=== PATIENT | female | born 1955 | race American Indian/Alaskan Native ===

== ENCOUNTER → 2020-09-23 09:19 | Outpatient (CLI) | payer MEDICARE, MEDICAID, SELFPAY ==
--- NOTE | 2020-09-23 | DI.US.S_ITS ---
PROCEDURE: US ABDOMEN LIMITED INDICATIONS: Elevation of levels of liver transaminase levels TECHNIQUE: Real-time focused scanning was performed of the abdomen, with image documentation. COMPARISON: None. FINDINGS: The liver demonstrates prominent size. The liver demonstrates generalized increased echogenicity. This decreases ultrasound sensitivity for detection of hepatic masses. Pulsatile flow can be seen within the main portal vein, with increased resistance noted within the waveform. No findings of gallstones or sludge are seen. The gallbladder wall is not thickened, measuring 3 mm or less. No specific pericholecystic fluid is seen. The sonographic Ignacio sign is negative. There is no biliary dilatation, the common bile duct measures 3 mm. No significant pancreatic abnormality is seen on these images. A moderate amount of ascites is seen. IMPRESSION: Enlarged, echogenic liver, which is consistent with fatty infiltration or cirrhosis. Moderate ascites. Pulsatile flow can be seen within the main portal vein, with increased resistance noted within the waveform. Dictated by: Cecil Simpson M.D. on 09/23/2020 at 11:05 Approved by: Cecil Simpson M.D. on 09/23/2020 at 11:07
== END ==
PROVIDERS: PCP Family Medicine; Referring Provider Family Medicine; Visit Provider Family Medicine
DX: R74.01 Elevation of levels of liver transaminase levels (principal); R16.0 Hepatomegaly, not elsewhere classified; R18.8 Other ascites
CPT/HCPCS: 76705

== ENCOUNTER 2020-09-25 20:11 | Emergency (ER) | payer MEDICARE, MEDICAID, SELFPAY ==
[2020-09-25] VITALS (10 sets, daily range): BP systolic 115–128; BP diastolic 57–68; PULSE 84–95; RESP 22–28; TEMP 36.9; O2SAT 88–96; BMI 30.8
--- NOTE | 2020-09-25 20:30 | ED.GENADULT ---
HPI - General Adult <Juancho Jeong DO - Last Filed: 09/26/20 17:58> General Chief complaint: Weakness Stated complaint: General Weakness Time Seen by Provider: 09/25/20 20:17 Source: patient Mode of arrival: EMS Limitations: no limitations History of Present Illness HPI narrative: Patient is a 65-year-old female. History of alcoholism. Also history of cirrhosis. Has not seen a GI provider up this point. Has been followed by her primary doctor. Patient fell a couple weeks ago at home. Did not sustain any significant injuries per her report and was not evaluated after the fall but according to the patient and her who is at bedside she has been having increasing weakness since then. Patient states that she still has been drinking alcohol but she quit 2 days ago. She states that she has attempted to quit drinking in the past but this was several years ago. Per report she never had significant withdrawal symptoms except for a small amount of shaking. She reports that she does not feel like she is withdrawing from any alcohol currently. Today she filled more weak than what her baseline was. She was sitting on the toilet and was unable to get up. Her was unable to lift her up and that is why EMS was called. She states he is unsure as to why she is more weak today. She states that she feels like her lower extremities are very unsteady. She feels like both are equally unsteady. She denied any other associated symptoms at that time she was having problems standing. She does state that she feels like she goes through periods of time when she is more weak than others. And felt like what happened her earlier today was just a period of time where her weakness was more pronounced. Related Data Previous Rx's Medication Instructions Recorded sertraline 50 mg tablet 50 mg PO DAILY #30 tab 12/18/19 Allergies Allergy/AdvReac Type Severity Reaction Status Date / Time No Known Drug Allergies Allergy Verified 09/26/20 12:43 Review of Systems <Juancho Jeong DO - Last Filed: 09/26/20 17:58> Constitutional Constitutional: Denies fatigue, Denies fever(s), Denies frequent falls, Denies headache(s) and Reports weakness Eyes Eyes: Denies change in vision ENT Ears, Nose, Mouth, and Throat: Denies vertigo, Denies dizziness, Denies headache(s), Reports disequilibrium and Denies sore throat Cardiovascular Cardiovascular: Denies chest pain and Denies dyspnea Respiratory Respiratory: Denies cough and Denies dyspnea Gastrointestinal Gastrointestinal: Denies abdominal pain, Denies nausea and Denies vomiting Genitourinary Genitourinary: Denies dysuria Genitourinary: Denies dysuria Musculoskeletal Musculoskeletal: Denies arthralgias, Reports muscle weakness, Denies myalgias, Denies stiffness and Denies tingling Comments: She does report neuropathy but does not think that that is worse today than her baseline Integumentary/Breasts Skin/Breast: Denies lesions and Denies rash Neurologic Neurologic: Denies abnormal movements, Denies abnormal speech, Denies behavioral changes, Denies confusion, Denies vertigo, Denies dizziness, Denies frequent falls, Denies headache(s), Denies tingling, Reports disequilibrium and Reports weakness Psychiatric Psychiatric: Denies behavioral changes and Denies confusion Endocrine Endocrine: Denies fatigue Hematologic/Lymphatic Hematologic/Lymphatic: Denies easy bleeding and Denies easy bruising Allergic/Immunologic Allergic/Immunologic: Denies urticaria Patient History <Juancho Jeong DO - Last Filed: 09/26/20 17:58> Medical History (Updated 09/26/20 @ 17:47 by Fish Jenkins MD) Alcoholism Allergies Bilateral leg weakness Cirrhosis Depression (~1985) History of chicken pox (~1958) Restless leg syndrome Transaminitis Vitiligo (~2017) Surgical History (Updated 09/26/20 @ 17:39 by Fish Jenkins MD) No significant past surgical history Social History marital status: household members: spouse and children pets and animals: No education level: high school occupational status: employed current occupational exposures/hazards: Yes ([employer]) travel history: other leisure activities: reading and other other: Walking seatbelt use: always working smoke detector in home: Yes fire extinguisher in home: Yes carbon monox detector in home: Yes firearms in home: No do you feel safe at home: Yes Smoking Status: Former smoker alcohol intake: current during the past year weight has: decreased > 10 lbs well-balanced diet: daily or most days daily servings fruits/ve-4 caffeine: Yes (Rare) eating out: 1-3 times/week Type(s) of exercise: walking and bicycling frequency: daily duration: 15-30 minutes/day Smoking Status: Former smoker Exam <DO Sherie Rose Last Filed: 09/26/20 17:58> Initial Vital Signs Initial Vital Signs: Vital Signs Blood Pressure 120/57 L 09/25/20 20:15 Const General: cooperative, healthy appearing, comfortable and well developed Limitations: mental status not altered HENMT Head: normal to inspection and normocephalic Ears: hearing grossly normal bilaterally Face and sinus: normal facial exam Eyes Pupils: PERRL Resp Effort & Inspection: normal respiratory effort Auscultation: clear to auscultation bilaterally Cardio Rate: regular rate Rhythm: regular rhythm Pulses: radial pulses present and dorsalis pedis present GI Inspection: distended Palpation: soft, No firm, No tender and ascites Skin Lesions: no lesions Rashes: no rashes Neuro General: patient alert, patient awake and patient oriented x3 Cranial Nerves: CN's II-XI intact bilaterally Cognition: normal cognition Speech: speech normal Gait: gait abnormal Motor: other (5/5 strength bilateral upper extremities, 4/5 strength bilateral lower extr) Sensory Exam: no sensory deficits noted Extrem General: normal to inspection, capillary refill normal and edema (At baseline for her per her report) Psych Appearance: grossly normal and well kempt <Fish Jenkins MD - Last Filed: 09/26/20 11:15> Initial Vital Signs Initial Vital Signs: Vital Signs Blood Pressure 120/57 L 09/25/20 20:15 Procedures <Juancho Jeong DO - Last Filed: 09/26/20 17:58> Paracentesis Time Out Performed: Yes Local Anesthetic: lidocaine 1% Amount of anesthesia used (mL): 5 Fluid: clear Post Procedure Exam: awake, alert, normal BP and normal HR Patient Tolerated Procedure: Well and No complications Complications: none Scores <DO Sherie Rose Last Filed: 09/26/20 17:58> GCS [place] coma scale eye opening: Spontaneous Zev coma scale verbal response: Orientated Zev coma scale motor response: Obey commands Zev coma scale total score: 15 Course <DO Sherie Rose Last Filed: 09/26/20 17:58> Orders Ordered: ED Orders 09/25/20 22:35 COVID19 Stat 09/25/20 23:25 Body Fluid Culture Stat Cell Count w Diff Body Fluid Stat 09/26/20 00:49 Consult to [facility] [place] F[place] Stat Consult to Physical Therapy Evaluate & Treat Vital Signs Vital signs: Vital Signs - 8 hr 09/26/20 10:00 09/26/20 10:30 09/26/20 11:05 Pulse Rate 76 82 96 H Respiratory Rate 20 22 Blood Pressure 113/55 L 119/61 118/65 Pulse Oximetry 96 97 93 09/26/20 11:12 Pulse Rate 97 H Respiratory Rate 12 Blood Pressure 118/65 Pulse Oximetry 95 <Fish Jenkins MD - Last Filed: 09/26/20 11:15> Course Course Narrative: 10:45 am. 09/26/20. The patient was evaluated in the prior ER shift by Dr. Jeong. I reviewed his evaluation, we have discussed the case. I assumed care at change of shift. The intent was to have the patient visited by a social media intern about noon today in the ER and provide assistance with disposition and ongoing care. The patient grew tired of waiting, she insisted on going home. I advised her to seek assistance with home health care through her own physician. Anthony Jenkins MD Orders Ordered: ED Orders 09/25/20 22:35 COVID19 Stat 09/25/20 23:25 Body Fluid Culture Stat Cell Count w Diff Body Fluid Stat 09/26/20 00:49 Consult to [facility] [place] Filler Stat Consult to Physical Therapy Evaluate & Treat Vital Signs Vital signs: Vital Signs - 8 hr 09/26/20 10:00 09/26/20 10:30 09/26/20 11:05 Pulse Rate 76 82 96 H Respiratory Rate 20 22 Blood Pressure 113/55 L 119/61 118/65 Pulse Oximetry 96 97 93 09/26/20 11:12 Pulse Rate 97 H Respiratory Rate 12 Blood Pressure 118/65 Pulse Oximetry 95 Medical Decision Making <Juancho Jeong DO - Last Filed: 09/26/20 17:58> Lab Data Lab results reviewed: Yes I reviewed the patient's lab results. Result diagrams: 09/25/20 20:13 09/25/20 20:13 Labs: Lab Results 09/25/20 09/25/20 09/25/20 Range/Units 20:13 20:13 20:13 WBC 12.3 H (4.5-11.0) X10^3/uL RBC 3.50 L (4.0-5.2) X10^6/uL Hgb 12.2 (12.0-16.0) g/dL Hct 36.1 (36-46) % MCV 103.2 H (80-100) fL MCH 34.9 H (26-34) PG MCHC 33.8 (30-36) % RDW 15.4 H (11.6-14.8) % Plt Count 185 (150-400) X10^3/uL Neut % (Auto) 69.7 (50-75) % Lymph % (Auto) 16.6 L (25-40) % [place] % (Auto) 12.4 (3-14) % Eos % (Auto) 0.6 L (2-4) % Baso % (Auto) 0.7 (0-2) % Neut # (Auto) 8600 H (5293-4171) /uL Lymph # (Auto) 2000 (3432-5398) /uL [place] # (Auto) 1500 H (0-900) /uL Eos # (Auto) 100 (0-450) /uL Baso # (Auto) 100 (0-100) /uL PT 16.1 H (10.1-12.7) SECONDS INR 1.4 H (0.9-1.3) APTT 34 (26.4-36.2) SECONDS Sodium 128 L (137-145) mmol/L Potassium 4.1 (3.4-5.1) mmol/L Chloride 93 L (98-107) mmol/L Carbon Dioxide 27 (22-32) mmol/L BUN 34 H (7-17) mg/dL Creatinine 1.87 H (0.52-1.04) mg/dL Estimated GFR 26.9 L (>60) mL/min BUN/Creatinine Ratio 18.2 (6-22) Glucose 117 H (80-110) mg/dL Lactate (0.7-2.1) mmol/L Calcium 10.0 (8.4-10.2) mg/dL Total Bilirubin (0.2-1.3) mg/dL Conjugated Bilirubin (0.0-0.3) md/dL Unconjugated Bilirubin (0.0-1.1) mg/dL AST (14-36) IU/L ALT (<35) IU/L Alkaline Phosphatase (38-126) U/L Ammonia (9-30) umol/L NT-Pro-B Natriuret Pep (<125) pg/mL Total Protein (6.3-8.2) g/dL Albumin (3.5-5.0) g/dL Globulin (1.7-4.1) g/dL Albumin/Globulin Ratio (1.0-2.8) Lipase (23-300) U/L TSH (0.47-4.68) uIU/mL Urine RBC (0-5/HPF) Urine WBC (0-5/HPF) Ur Squamous Epith Cells (0-5/HPF) Calcium Oxalate Crystal Urine Bacteria (None) Hyaline Casts (None) Ur Culture Indicated? Fluid Color Fluid Appearance Fluid RBC /uL Fld Tot Nucleated Cell /uL Fluid Polynuclear WBCs % Fluid Mononuclear WBCs % Fluid Eosinophils % Fluid Other Cells % Body Fluid Clot Ethyl Alcohol < 10 ( - 10) mg/dL COVID-19 PCR (Negative) 09/25/20 09/25/20 09/25/20 Range/Units 20:13 20:13 20:53 WBC (4.5-11.0) X10^3/uL RBC (4.0-5.2) X10^6/uL Hgb (12.0-16.0) g/dL Hct (36-46) % MCV (80-100) fL MCH (26-34) PG MCHC (30-36) % RDW (11.6-14.8) % Plt Count (150-400) X10^3/uL Neut % (Auto) (50-75) % Lymph % (Auto) (25-40) % [place] % (Auto) (3-14) % Eos % (Auto) (2-4) % Baso % (Auto) (0-2) % Neut # (Auto) (8360-1875) /uL Lymph # (Auto) (3486-6613) /uL [place] # (Auto) (0-900) /uL Eos # (Auto) (0-450) /uL Baso # (Auto) (0-100) /uL PT (10.1-12.7) SECONDS INR (0.9-1.3) APTT (26.4-36.2) SECONDS Sodium (137-145) mmol/L Potassium (3.4-5.1) mmol/L Chloride (98-107) mmol/L Carbon Dioxide (22-32) mmol/L BUN (7-17) mg/dL Creatinine (0.52-1.04) mg/dL Estimated GFR (>60) mL/min BUN/Creatinine Ratio (6-22) Glucose (80-110) mg/dL Lactate (0.7-2.1) mmol/L Calcium (8.4-10.2) mg/dL Total Bilirubin 5.8 H (0.2-1.3) mg/dL Conjugated Bilirubin 1.6 H (0.0-0.3) md/dL Unconjugated Bilirubin 1.7 H (0.0-1.1) mg/dL AST 252 H (14-36) IU/L ALT 106 H (<35) IU/L Alkaline Phosphatase 393 H (38-126) U/L Ammonia 22 (9-30) umol/L NT-Pro-B Natriuret Pep 1380 H (<125) pg/mL Total Protein 7.7 (6.3-8.2) g/dL Albumin 3.6 (3.5-5.0) g/dL Globulin 4.1 (1.7-4.1) g/dL Albumin/Globulin Ratio 0.9 L (1.0-2.8) Lipase 190 (23-300) U/L TSH 8.87 H (0.47-4.68) uIU/mL Urine RBC (0-5/HPF) Urine WBC (0-5/HPF) Ur Squamous Epith Cells (0-5/HPF) Calcium Oxalate Crystal Urine Bacteria (None) Hyaline Casts (None) Ur Culture Indicated? Fluid Color Fluid Appearance Fluid RBC /uL Fld Tot Nucleated Cell /uL Fluid Polynuclear WBCs % Fluid Mononuclear WBCs % Fluid Eosinophils % Fluid Other Cells % Body Fluid Clot Ethyl Alcohol ( - 10) mg/dL COVID-19 PCR (Negative) 09/25/20 09/25/20 09/25/20 Range/Units 20:53 21:30 22:35 WBC (4.5-11.0) X10^3/uL RBC (4.0-5.2) X10^6/uL Hgb (12.0-16.0) g/dL Hct (36-46) % MCV (80-100) fL MCH (26-34) PG MCHC (30-36) % RDW (11.6-14.8) % Plt Count (150-400) X10^3/uL Neut % (Auto) (50-75) % Lymph % (Auto) (25-40) % [place] % (Auto) (3-14) % Eos % (Auto) (2-4) % Baso % (Auto) (0-2) % Neut # (Auto) (1756-7513) /uL Lymph # (Auto) (6741-8734) /uL [place] # (Auto) (0-900) /uL Eos # (Auto) (0-450) /uL Baso # (Auto) (0-100) /uL PT (10.1-12.7) SECONDS INR (0.9-1.3) APTT (26.4-36.2) SECONDS Sodium (137-145) mmol/L Potassium (3.4-5.1) mmol/L Chloride (98-107) mmol/L Carbon Dioxide (22-32) mmol/L BUN (7-17) mg/dL Creatinine (0.52-1.04) mg/dL Estimated GFR (>60) mL/min BUN/Creatinine Ratio (6-22) Glucose (80-110) mg/dL Lactate 2.2 H (0.7-2.1) mmol/L Calcium (8.4-10.2) mg/dL Total Bilirubin (0.2-1.3) mg/dL Conjugated Bilirubin (0.0-0.3) md/dL Unconjugated Bilirubin (0.0-1.1) mg/dL AST (14-36) IU/L ALT (<35) IU/L Alkaline Phosphatase (38-126) U/L Ammonia (9-30) umol/L NT-Pro-B Natriuret Pep (<125) pg/mL Total Protein (6.3-8.2) g/dL Albumin (3.5-5.0) g/dL Globulin (1.7-4.1) g/dL Albumin/Globulin Ratio (1.0-2.8) Lipase (23-300) U/L TSH (0.47-4.68) uIU/mL Urine RBC None seen (0-5/HPF) Urine WBC None seen (0-5/HPF) Ur Squamous Epith Cells 5-10 /hpf H (0-5/HPF) Calcium Oxalate Crystal Few H Urine Bacteria Few (2-10) H (None) Hyaline Casts 5-10/lpf (None) Ur Culture Indicated? Cult not indicated Fluid Color Fluid Appearance Fluid RBC /uL Fld Tot Nucleated Cell /uL Fluid Polynuclear WBCs % Fluid Mononuclear WBCs % Fluid Eosinophils % Fluid Other Cells % Body Fluid Clot Ethyl Alcohol ( - 10) mg/dL COVID-19 PCR Negative (Negative) 09/25/20 09/25/20 Range/Units 23:25 23:30 WBC (4.5-11.0) X10^3/uL RBC (4.0-5.2) X10^6/uL Hgb (12.0-16.0) g/dL Hct (36-46) % MCV (80-100) fL MCH (26-34) PG MCHC (30-36) % RDW (11.6-14.8) % Plt Count (150-400) X10^3/uL Neut % (Auto) (50-75) % Lymph % (Auto) (25-40) % [place] % (Auto) (3-14) % Eos % (Auto) (2-4) % Baso % (Auto) (0-2) % Neut # (Auto) (8460-9260) /uL Lymph # (Auto) (1531-1081) /uL [place] # (Auto) (0-900) /uL Eos # (Auto) (0-450) /uL Baso # (Auto) (0-100) /uL PT (10.1-12.7) SECONDS INR (0.9-1.3) APTT (26.4-36.2) SECONDS Sodium (137-145) mmol/L Potassium (3.4-5.1) mmol/L Chloride (98-107) mmol/L Carbon Dioxide (22-32) mmol/L BUN (7-17) mg/dL Creatinine (0.52-1.04) mg/dL Estimated GFR (>60) mL/min BUN/Creatinine Ratio (6-22) Glucose (80-110) mg/dL Lactate 1.3 (0.7-2.1) mmol/L Calcium (8.4-10.2) mg/dL Total Bilirubin (0.2-1.3) mg/dL Conjugated Bilirubin (0.0-0.3) md/dL Unconjugated Bilirubin (0.0-1.1) mg/dL AST (14-36) IU/L ALT (<35) IU/L Alkaline Phosphatase (38-126) U/L Ammonia (9-30) umol/L NT-Pro-B Natriuret Pep (<125) pg/mL Total Protein (6.3-8.2) g/dL Albumin (3.5-5.0) g/dL Globulin (1.7-4.1) g/dL Albumin/Globulin Ratio (1.0-2.8) Lipase (23-300) U/L TSH (0.47-4.68) uIU/mL Urine RBC (0-5/HPF) Urine WBC (0-5/HPF) Ur Squamous Epith Cells (0-5/HPF) Calcium Oxalate Crystal Urine Bacteria (None) Hyaline Casts (None) Ur Culture Indicated? Fluid Color Yellow Fluid Appearance Clear Fluid RBC 217 /uL Fld Tot Nucleated Cell 73 /uL Fluid Polynuclear WBCs 3 % Fluid Mononuclear WBCs 15 % Fluid Eosinophils 0 % Fluid Other Cells 82 % Body Fluid Clot No clots present Ethyl Alcohol ( - 10) mg/dL COVID-19 PCR (Negative) Urine Dip Bedside Urine Glucose Negative Bedside Urine Bilirubin - Negative Bedside Urine Ketone - Negative Urine Specific [place] 1.030 Bedside Urine Occult Blood - Negative Bedside Urine pH 6.0 Bedside Urine Protein - Negative Bedside Urine Urobilinogen - Negative Bedside Urine Nitrite - Negative Bedside Urine Leukocytes - Negative Esterase Point of care testing: Urine Dip Bedside Urine Glucose Negative Bedside Urine Bilirubin - Negative Bedside Urine Ketone - Negative Urine Specific [place] 1.030 Bedside Urine Occult Blood - Negative Bedside Urine pH 6.0 Bedside Urine Protein - Negative Bedside Urine Urobilinogen - Negative Bedside Urine Nitrite - Negative Bedside Urine Leukocytes - Negative Esterase Imaging Data CT scan - head: Radiologist's Impression: [address] [id number] Scan ReportSigned Patient: Gwen Tyson AMR#: [id number]: 4Acct:[id number]/Sex: 65 / FDate of Service: 09/25/20Loc: EDAccession Number: [id number] Procedure: CT head/brain wo con Ordering Provider: Juancho Jeong D.O. PROCEDURE: CT HEAD/BRAIN WO CON INDICATIONS: weakness after fall TECHNIQUE: Noncontrast 4.5 mm thick angled axial sections acquired from the foramen magnum to the vertex, with coronal and sagittal reformats. For radiation dose reduction, the following was used: automated exposure control, adjustment of mA and/or kV according to patient size. COMPARISON: None. FINDINGS: Image quality: Excellent. CSF spaces: Basal cisterns are patent. No extra-axial fluid collections. The ventricles are symmetric in size and shape. Brain: No intracranial bleeds. There is a likely extra-axial mass inferior to the bilateral frontal lobes at midline (series 2/image 14, series 4/image 15, and series 5/image 22). There is no sulcal effacement or associated parenchymal edema. There is moderate cerebral volume loss for age, with resultant ventricular and sulcal prominence. There are periventricular and deep white matter chronic small vessel ischemic changes. There is intracranial internal carotid artery atherosclerosis. Skull and face: Calvarium and visualized facial bones appear intact, without suspicious lesions. Sinuses: Visualized sinuses and mastoids are clear. IMPRESSION: 1. No acute intracranial findings. 2. Probable extra-axial mass inferior to the central frontal lobes as described above. The lack of associated sulcal effacement or edema suggests this is an indolent finding and may represent a meningioma. MRI of the brain with and without contrast is recommended to further characterize this finding. These findings were discussed with Dr. Jeong at 9:17 p.m. On September 25, 2020. Dictated by: Jyoti Bronson M.D. on 09/25/2020 at 21:12 Approved by: Jyoti Bronson M.D. on 09/25/2020 at 21:18 Chest x-ray: Radiologist's Impression: No acute process in the chest ECG Data Attestation: I personally reviewed and interpreted this ECG as follows: Prior ECG tracings: not available for review Interpretation: Normal sinus rhythm Ventricular rate 84 Normal axis Normal QRS Normal QTC No ST T wave changes MDM Narrative Medical decision making narrative: Patient was alert and oriented x3. GCS of 15. Patient reports lower extremity weakness however does appear to be equal bilateral. She has no other localizing signs of any acute neurologic process. I have low suspicion for CVA or TIA. Her head CT was also unremarkable. She does have a leukocytosis however her physical exam and labs are not consistent with pneumonia, cellulitis, urinary tract infection, SBP, other intra-abdominal issues such as appendicitis. Initially her lactate was elevated but this improved with fluids. Blood cultures were obtained. Her COVID testing was negative. I do not have any specific indication for a infection except for the leukocytosis. Her elevations in these labs could very well be related to her liver issues. She does have an elevated bili. Her LFTs are also elevated. The paracentesis was performed to obtain fluid for analysis for potential SBP. We were able to remove 2 L of fluid during this process. Patient tolerated this procedure very well. I suspect that her elevation in LFTs are not new for her. She did have the outpatient ultrasound done within the past week that showed findings consistent with cirrhosis had no specific gallbladder pathology. We attempted multiple times to get the patient to stand at bedside but she was unable to do so secondary to weakness. Patient clinically is not withdrawing from alcohol. She did not think that she is having any withdrawal symptoms. Patient's states that he he cannot take care of her at home. He has Parkinson's disease and when she becomes weak and cannot stand which seems to be happening more often over the past several days especially today he is unable to help her. Unfortunately all of her issues especially with her liver seem to be chronic. The neuropathy that she states she has in her lower extremities is also chronic. I do not have a specific reason at this point to admit her to the hospital and I feel that she is unsafe to be discharged home so patient will be boarded in the emergency department until she can be evaluated by physical therapy and social work in the morning. Care turned over to day provider changed shift to follow up with this and disposition. I did discuss the findings of the head CT with the patient and informed her she needed to contact her primary provider for further evaluation to include an MRI. She expressed understanding. <Fish Jenkins MD - Last Filed: 09/26/20 11:15> Lab Data Labs: Lab Results 09/25/20 09/25/20 09/25/20 Range/Units 20:13 20:13 20:13 WBC 12.3 H (4.5-11.0) X10^3/uL RBC 3.50 L (4.0-5.2) X10^6/uL Hgb 12.2 (12.0-16.0) g/dL Hct 36.1 (36-46) % MCV 103.2 H (80-100) fL MCH 34.9 H (26-34) PG MCHC 33.8 (30-36) % RDW 15.4 H (11.6-14.8) % Plt Count 185 (150-400) X10^3/uL Neut % (Auto) 69.7 (50-75) % Lymph % (Auto) 16.6 L (25-40) % [place] % (Auto) 12.4 (3-14) % Eos % (Auto) 0.6 L (2-4) % Baso % (Auto) 0.7 (0-2) % Neut # (Auto) 8600 H (7274-8861) /uL Lymph # (Auto) 2000 (9913-7003) /uL [place] # (Auto) 1500 H (0-900) /uL Eos # (Auto) 100 (0-450) /uL Baso # (Auto) 100 (0-100) /uL PT 16.1 H (10.1-12.7) SECONDS INR 1.4 H (0.9-1.3) APTT 34 (26.4-36.2) SECONDS Sodium 128 L (137-145) mmol/L Potassium 4.1 (3.4-5.1) mmol/L Chloride 93 L (98-107) mmol/L Carbon Dioxide 27 (22-32) mmol/L BUN 34 H (7-17) mg/dL Creatinine 1.87 H (0.52-1.04) mg/dL Estimated GFR 26.9 L (>60) mL/min BUN/Creatinine Ratio 18.2 (6-22) Glucose 117 H (80-110) mg/dL Lactate (0.7-2.1) mmol/L Calcium 10.0 (8.4-10.2) mg/dL Total Bilirubin (0.2-1.3) mg/dL Conjugated Bilirubin (0.0-0.3) md/dL Unconjugated Bilirubin (0.0-1.1) mg/dL AST (14-36) IU/L ALT (<35) IU/L Alkaline Phosphatase (38-126) U/L Ammonia (9-30) umol/L NT-Pro-B Natriuret Pep (<125) pg/mL Total Protein (6.3-8.2) g/dL Albumin (3.5-5.0) g/dL Globulin (1.7-4.1) g/dL Albumin/Globulin Ratio (1.0-2.8) Lipase (23-300) U/L TSH (0.47-4.68) uIU/mL Urine RBC (0-5/HPF) Urine WBC (0-5/HPF) Ur Squamous Epith Cells (0-5/HPF) Calcium Oxalate Crystal Urine Bacteria (None) Hyaline Casts (None) Ur Culture Indicated? Fluid Color Fluid Appearance Fluid RBC /uL Fld Tot Nucleated Cell /uL Fluid Polynuclear WBCs % Fluid Mononuclear WBCs % Fluid Eosinophils % Fluid Other Cells % Body Fluid Clot Ethyl Alcohol < 10 ( - 10) mg/dL COVID-19 PCR (Negative) 09/25/20 09/25/20 09/25/20 Range/Units 20:13 20:13 20:53 WBC (4.5-11.0) X10^3/uL RBC (4.0-5.2) X10^6/uL Hgb (12.0-16.0) g/dL Hct (36-46) % MCV (80-100) fL MCH (26-34) PG MCHC (30-36) % RDW (11.6-14.8) % Plt Count (150-400) X10^3/uL Neut % (Auto) (50-75) % Lymph % (Auto) (25-40) % [place] % (Auto) (3-14) % Eos % (Auto) (2-4) % Baso % (Auto) (0-2) % Neut # (Auto) (0764-4849) /uL Lymph # (Auto) (3547-5983) /uL [place] # (Auto) (0-900) /uL Eos # (Auto) (0-450) /uL Baso # (Auto) (0-100) /uL PT (10.1-12.7) SECONDS INR (0.9-1.3) APTT (26.4-36.2) SECONDS Sodium (137-145) mmol/L Potassium (3.4-5.1) mmol/L Chloride (98-107) mmol/L Carbon Dioxide (22-32) mmol/L BUN (7-17) mg/dL Creatinine (0.52-1.04) mg/dL Estimated GFR (>60) mL/min BUN/Creatinine Ratio (6-22) Glucose (80-110) mg/dL Lactate (0.7-2.1) mmol/L Calcium (8.4-10.2) mg/dL Total Bilirubin 5.8 H (0.2-1.3) mg/dL Conjugated Bilirubin 1.6 H (0.0-0.3) md/dL Unconjugated Bilirubin 1.7 H (0.0-1.1) mg/dL AST 252 H (14-36) IU/L ALT 106 H (<35) IU/L Alkaline Phosphatase 393 H (38-126) U/L Ammonia 22 (9-30) umol/L NT-Pro-B Natriuret Pep 1380 H (<125) pg/mL Total Protein 7.7 (6.3-8.2) g/dL Albumin 3.6 (3.5-5.0) g/dL Globulin 4.1 (1.7-4.1) g/dL Albumin/Globulin Ratio 0.9 L (1.0-2.8) Lipase 190 (23-300) U/L TSH 8.87 H (0.47-4.68) uIU/mL Urine RBC (0-5/HPF) Urine WBC (0-5/HPF) Ur Squamous Epith Cells (0-5/HPF) Calcium Oxalate Crystal Urine Bacteria (None) Hyaline Casts (None) Ur Culture Indicated? Fluid Color Fluid Appearance Fluid RBC /uL Fld Tot Nucleated Cell /uL Fluid Polynuclear WBCs % Fluid Mononuclear WBCs % Fluid Eosinophils % Fluid Other Cells % Body Fluid Clot Ethyl Alcohol ( - 10) mg/dL COVID-19 PCR (Negative) 09/25/20 09/25/20 09/25/20 Range/Units 20:53 21:30 22:35 WBC (4.5-11.0) X10^3/uL RBC (4.0-5.2) X10^6/uL Hgb (12.0-16.0) g/dL Hct (36-46) % MCV (80-100) fL MCH (26-34) PG MCHC (30-36) % RDW (11.6-14.8) % Plt Count (150-400) X10^3/uL Neut % (Auto) (50-75) % Lymph % (Auto) (25-40) % [place] % (Auto) (3-14) % Eos % (Auto) (2-4) % Baso % (Auto) (0-2) % Neut # (Auto) (2070-2931) /uL Lymph # (Auto) (5949-7640) /uL [place] # (Auto) (0-900) /uL Eos # (Auto) (0-450) /uL Baso # (Auto) (0-100) /uL PT (10.1-12.7) SECONDS INR (0.9-1.3) APTT (26.4-36.2) SECONDS Sodium (137-145) mmol/L Potassium (3.4-5.1) mmol/L Chloride (98-107) mmol/L Carbon Dioxide (22-32) mmol/L BUN (7-17) mg/dL Creatinine (0.52-1.04) mg/dL Estimated GFR (>60) mL/min BUN/Creatinine Ratio (6-22) Glucose (80-110) mg/dL Lactate 2.2 H (0.7-2.1) mmol/L Calcium (8.4-10.2) mg/dL Total Bilirubin (0.2-1.3) mg/dL Conjugated Bilirubin (0.0-0.3) md/dL Unconjugated Bilirubin (0.0-1.1) mg/dL AST (14-36) IU/L ALT (<35) IU/L Alkaline Phosphatase (38-126) U/L Ammonia (9-30) umol/L NT-Pro-B Natriuret Pep (<125) pg/mL Total Protein (6.3-8.2) g/dL Albumin (3.5-5.0) g/dL Globulin (1.7-4.1) g/dL Albumin/Globulin Ratio (1.0-2.8) Lipase (23-300) U/L TSH (0.47-4.68) uIU/mL Urine RBC None seen (0-5/HPF) Urine WBC None seen (0-5/HPF) Ur Squamous Epith Cells 5-10 /hpf H (0-5/HPF) Calcium Oxalate Crystal Few H Urine Bacteria Few (2-10) H (None) Hyaline Casts 5-10/lpf (None) Ur Culture Indicated? Cult not indicated Fluid Color Fluid Appearance Fluid RBC /uL Fld Tot Nucleated Cell /uL Fluid Polynuclear WBCs % Fluid Mononuclear WBCs % Fluid Eosinophils % Fluid Other Cells % Body Fluid Clot Ethyl Alcohol ( - 10) mg/dL COVID-19 PCR Negative (Negative) 09/25/20 09/25/20 Range/Units 23:25 23:30 WBC (4.5-11.0) X10^3/uL RBC (4.0-5.2) X10^6/uL Hgb (12.0-16.0) g/dL Hct (36-46) % MCV (80-100) fL MCH (26-34) PG MCHC (30-36) % RDW (11.6-14.8) % Plt Count (150-400) X10^3/uL Neut % (Auto) (50-75) % Lymph % (Auto) (25-40) % [place] % (Auto) (3-14) % Eos % (Auto) (2-4) % Baso % (Auto) (0-2) % Neut # (Auto) (8030-7990) /uL Lymph # (Auto) (3771-0408) /uL [place] # (Auto) (0-900) /uL Eos # (Auto) (0-450) /uL Baso # (Auto) (0-100) /uL PT (10.1-12.7) SECONDS INR (0.9-1.3) APTT (26.4-36.2) SECONDS Sodium (137-145) mmol/L Potassium (3.4-5.1) mmol/L Chloride (98-107) mmol/L Carbon Dioxide (22-32) mmol/L BUN (7-17) mg/dL Creatinine (0.52-1.04) mg/dL Estimated GFR (>60) mL/min BUN/Creatinine Ratio (6-22) Glucose (80-110) mg/dL Lactate 1.3 (0.7-2.1) mmol/L Calcium (8.4-10.2) mg/dL Total Bilirubin (0.2-1.3) mg/dL Conjugated Bilirubin (0.0-0.3) md/dL Unconjugated Bilirubin (0.0-1.1) mg/dL AST (14-36) IU/L ALT (<35) IU/L Alkaline Phosphatase (38-126) U/L Ammonia (9-30) umol/L NT-Pro-B Natriuret Pep (<125) pg/mL Total Protein (6.3-8.2) g/dL Albumin (3.5-5.0) g/dL Globulin (1.7-4.1) g/dL Albumin/Globulin Ratio (1.0-2.8) Lipase (23-300) U/L TSH (0.47-4.68) uIU/mL Urine RBC (0-5/HPF) Urine WBC (0-5/HPF) Ur Squamous Epith Cells (0-5/HPF) Calcium Oxalate Crystal Urine Bacteria (None) Hyaline Casts (None) Ur Culture Indicated? Fluid Color Yellow Fluid Appearance Clear Fluid RBC 217 /uL Fld Tot Nucleated Cell 73 /uL Fluid Polynuclear WBCs 3 % Fluid Mononuclear WBCs 15 % Fluid Eosinophils 0 % Fluid Other Cells 82 % Body Fluid Clot No clots present Ethyl Alcohol ( - 10) mg/dL COVID-19 PCR (Negative) Urine Dip Bedside Urine Glucose Negative Bedside Urine Bilirubin - Negative Bedside Urine Ketone - Negative Urine Specific [place] 1.030 Bedside Urine Occult Blood - Negative Bedside Urine pH 6.0 Bedside Urine Protein - Negative Bedside Urine Urobilinogen - Negative Bedside Urine Nitrite - Negative Bedside Urine Leukocytes - Negative Esterase Point of care testing: Urine Dip Bedside Urine Glucose Negative Bedside Urine Bilirubin - Negative Bedside Urine Ketone - Negative Urine Specific [place] 1.030 Bedside Urine Occult Blood - Negative Bedside Urine pH 6.0 Bedside Urine Protein - Negative Bedside Urine Urobilinogen - Negative Bedside Urine Nitrite - Negative Bedside Urine Leukocytes - Negative Esterase Discharge Plan Departure Patient Disposition: Home Clinical Impression: Cirrhosis, Hyperbilirubinemia, Transaminitis, Leukocytosis, Bilateral leg weakness, Meningioma Instructions: DI for Cirrhosis Activity Restrictions/Additional Instructions: You to follow-up with her doctor, you need to seek home health care. Return to the ER as needed. Prescriptions: No Action sertraline 50 mg tablet 50 mg PO DAILY Qty: 30 RF: 0 Referrals: Bib Toro MD [Primary Care Provider] -
--- NOTE | 2020-09-25 20:39 | DI.CT.S_ITS ---
PROCEDURE: CT HEAD/BRAIN WO CON INDICATIONS: weakness after fall TECHNIQUE: Noncontrast 4.5 mm thick angled axial sections acquired from the foramen magnum to the vertex, with coronal and sagittal reformats. For radiation dose reduction, the following was used: automated exposure control, adjustment of mA and/or kV according to patient size. COMPARISON: None. FINDINGS: Image quality: Excellent. CSF spaces: Basal cisterns are patent. No extra-axial fluid collections. The ventricles are symmetric in size and shape. Brain: No intracranial bleeds. There is a likely extra-axial mass inferior to the bilateral frontal lobes at midline (series 2/image 14, series 4/image 15, and series 5/image 22). There is no sulcal effacement or associated parenchymal edema. There is moderate cerebral volume loss for age, with resultant ventricular and sulcal prominence. There are periventricular and deep white matter chronic small vessel ischemic changes. There is intracranial internal carotid artery atherosclerosis. Skull and face: Calvarium and visualized facial bones appear intact, without suspicious lesions. Sinuses: Visualized sinuses and mastoids are clear. IMPRESSION: 1. No acute intracranial findings. 2. Probable extra-axial mass inferior to the central frontal lobes as described above. The lack of associated sulcal effacement or edema suggests this is an indolent finding and may represent a meningioma. MRI of the brain with and without contrast is recommended to further characterize this finding. These findings were discussed with Dr. Jeong at 9:17 p.m. On September 25, 2020. Dictated by: Jyoti Bronson M.D. on 09/25/2020 at 21:12 Approved by: Jyoti Bronson M.D. on 09/25/2020 at 21:18
[2020-09-25 21:01] LABS: INR 1.4 (0.9-1.3); Prothrombin Time 16.1 SECONDS (10.1-12.7)
[2020-09-25 21:04] LABS: PTT Partial Thromboplastin Tim 34 SECONDS (26.4-36.2)
[2020-09-25 21:08] LABS: Alanine Aminotransferase 106 IU/L (<35); Albumin 3.6 g/dL (3.5-5.0); Albumin Globulin Ratio 0.9 (1.0-2.8); Alkaline Phosphatase 393 U/L (38-126); Aspartate Aminotransferase 252 IU/L (14-36); Bilirubin Conjugated 1.6 md/dL (0.0-0.3); Bilirubin Total 5.8 mg/dL (0.2-1.3); Bilirubin Unconjugated 1.7 mg/dL (0.0-1.1); Globulin 4.1 g/dL (1.7-4.1); Lipase 190 U/L (23-300); Total Protein 7.7 g/dL (6.3-8.2)
[2020-09-25 21:09] LABS: BUN Creatinine Ratio 18.2 (6-22); Blood Urea Nitrogen 34 mg/dL (7-17); Carbon Dioxide 27 mmol/L (22-32); Chloride 93 mmol/L (98-107); Estimated Glomerular Filt Rate 26.9 mL/min (>60); Ethanol (ETOH) < 10 mg/dL; Glucose 117 mg/dL (80-110); Potassium 4.1 mmol/L (3.4-5.1); Sodium 128 mmol/L (137-145)
[2020-09-25 21:10] LABS: HEMOLYSIS 139 (0-50)
[2020-09-25 21:11] LABS: HEMOLYSIS 139 (0-50)
[2020-09-25 21:13] LABS: Ammonia (NH3) 22 umol/L (9-30); Lactate (Lactic Acid) 2.2 mmol/L (0.7-2.1)
[2020-09-25 21:15] LABS: Add Manual Diff / Slide Review NO; Basophils Absolute Auto 100 /uL (0-100); Basophils Percent Auto 0.7 % (0-2); Eosinophils Absolute Auto 100 /uL (0-450); Eosinophils Percent Auto 0.6 % (2-4); Hematocrit 36.1 % (36-46); Hemoglobin 12.2 g/dL (12.0-16.0); Lymphocytes Absolute Auto 2000 /uL (1100-4500); Lymphocytes Percent Auto 16.6 % (25-40); Mean Corpuscular HGB Conc 33.8 % (30-36); Mean Corpuscular Hemoglobin 34.9 PG (26-34); Mean Corpuscular Volume 103.2 fL (80-100); Monocytes Absolute Auto 1500 /uL (0-900); Monocytes Percent Auto 12.4 % (3-14); Neutrophils Absolute Auto 8600 /uL (1500-7000); Neutrophils Percent Auto 69.7 % (50-75); Platelet Count 185 X10^3/uL (150-400); Red Cell Distribution Width 15.4 % (11.6-14.8); White Blood Cell Count 12.3 X10^3/uL (4.5-11.0)
[2020-09-25 21:17] LABS: NT-proBNP (BNP-Adult 18+) 1380 pg/mL (<125)
[2020-09-25 21:39] LABS: Thyroid Stimulating Hormone 8.87 uIU/mL (0.47-4.68)
[2020-09-25 21:44] LABS: RBC Urine None Seen (0-5/HPF); WBC Urine None Seen (0-5/HPF)
--- NOTE | 2020-09-25 21:45 | DI.RAD.S_ITS ---
PROCEDURE: XR CHEST 1V INDICATIONS: eval for pna TECHNIQUE: One view of the chest was acquired. COMPARISON: None. FINDINGS: Surgical changes and devices: None. Lungs and pleura: Lungs are clear. No pleural effusions or pneumothorax. Mediastinum: Mediastinal contours appear normal. Heart size is normal. Bones and chest wall: No suspicious bony lesions. Overlying soft tissues appear unremarkable. Old left humeral fracture with internal fixation. IMPRESSION: No acute cardiopulmonary disease. Dictated by: Víctor Allen M.D. on 09/26/2020 at 9:08 Approved by: Víctor Allen M.D. on 09/26/2020 at 9:09
[2020-09-25 21:59] LABS: Bacteria Urine Few (2-10); Hyaline Casts Urine 5-10/LPF
[2020-09-25 22:00] LABS: Calcium Oxalate Crystals Urine Few; Culture Indicated Urine Cult Not Indicated; Squamous Epithelial Cell Urine 5-10 /HPF (0-5/HPF)
[2020-09-25 22:55] LABS: COVID19 -Nasal RAPID Negative (Negative)
[2020-09-25 22:56] LABS: Reflexed Lactate in 2 Hours Y
[2020-09-25 23:53] LABS: Lactate 2HR (Lactic Acid Rflx) 1.3 mmol/L (0.7-2.1)
[2020-09-25 23:58] LABS: Body Fluid Tot Nucleated Cells 73 /uL
[2020-09-26] VITALS (28 sets, daily range): BP systolic 98–128; BP diastolic 51–65; PULSE 65–109; RESP 11–38; O2SAT 89–97
[2020-09-26 00:02] LABS: Body Fluid Red Blood Cells 217 /uL
[2020-09-26 00:17] LABS: Body Fluid Appearance CLEAR; Body Fluid Clotted? NO CLOTS PRESENT; Body Fluid Color YELLOW; Eosinophils Body Fluid 0 %; Mononuclear WBC Body Fluid 15 %; Other Cells Body Fluid 82 %; Polynuclear WBC Body Fluid 3 %
--- NOTE | 2020-09-26 00:48 | PC.NURSE ---
assisted pt to commode, pt unstable with ambulating. unable to walk two steps without loosing balance. 2 assist to get pt back into bed.
== END 2020-09-26 11:13 | disposition home or self-care (01) ==
PROVIDERS: Emergency Medicine; Emergency Provider Emergency Medicine; PCP Family Medicine
DX: K74.60 Unspecified cirrhosis of liver (principal); E80.6 Other disorders of bilirubin metabolism; F10.20 Alcohol dependence, uncomplicated; D72.829 Elevated white blood cell count, unspecified; R07.9 Chest pain, unspecified; R74.01 Elevation of levels of liver transaminase levels; D32.9 Benign neoplasm of meninges, unspecified; G20 Parkinson's disease; R53.1 Weakness
CPT/HCPCS: 36415; 49082; 70450; 71045; 80048; 80076; 80320; 81003; 81015; 82140; 83605; 83690; 83880; 84443; 85025; 85610; 85730; 87040; 87070; 87075; 87205; 87635; 89051; 93005; 99284; 99285

== ENCOUNTER 2020-09-26 12:13 | Emergency (ER) | payer MEDICARE, MEDICAID, SELFPAY ==
[2020-09-26] VITALS (21 sets, daily range): BP systolic 90–155; BP diastolic 55–83; PULSE 71–114; RESP 15–18; TEMP 36.8; O2SAT 90–99; BMI 27.3
--- NOTE | 2020-09-26 13:24 | PC.NURSE ---
This patient came into the ED after being gone for a couple of hours. She was told to wait for ONBOARDING SPECIALIST and left the ED this morning. She went home and was yelled at by her kids because she didn't stay and get help so she came back.
--- NOTE | 2020-09-26 14:04 | ED_ITS ---
HPI - Weakness General Chief complaint: Weakness Stated complaint: balance issue and legs arnt working Time Seen by Provider: 09/26/20 14:03 Source: patient Mode of arrival: Wheelchair Limitations: no limitations History of Present Illness HPI Narrative: The patient is an alcoholic who presented here last night with complaints of bilateral leg weakness. She has difficulty walking. Workup was done, including brain CT, extensive lab evaluation, and paracentesis. It is noted she has ascites and cirrhosis as well as associated lab abnormalities. She went home this morning, prior to a planned visit with social workers. She then returned because of weakness and inability to navigate steps at home. She has not been drinking alcohol since departure. She is drinking fluids. She presents now without headache or sore throat. She has no cough or dyspnea. She is not complaining of abdominal pain at this time. She does complain of bilateral weakness. She has no upper extremity weakness. She has no confusion. The ER note and evaluation from earlier today was reviewed. Related Data Previous Rx's Medication Instructions Recorded sertraline 50 mg tablet 50 mg PO DAILY #30 tab 12/18/19 folic acid 1 mg PO DAILY #100 tab 09/26/20 multivitamin 1 tab PO DAILY #100 tab 09/26/20 Allergies Allergy/AdvReac Type Severity Reaction Status Date / Time No Known Drug Allergies Allergy Verified 09/26/20 12:43 Review of Systems Review of Systems ROS Unobtainable: All systems reviewed & are unremarkable except as noted in HPI and below Constitutional Constitutional: Denies chills, Denies fever(s) and Denies weakness (Lower extremities) Eyes Eyes: Denies change in vision, Denies eye discharge, Denies irritation and Denies loss of vision ENT Comments: No ENT complaints. Cardiovascular Cardiovascular: Denies chest pain, Denies edema, Denies lightheadedness and Denies dyspnea Respiratory Respiratory: Denies cough, Denies dyspnea and Denies wheezing Gastrointestinal Gastrointestinal: Reports abdominal pain, Denies diarrhea, Denies nausea and Denies vomiting Genitourinary Genitourinary: Denies dysuria Genitourinary: Denies dysuria Musculoskeletal Comments: No complaints of pain in the extremities, weakness in lower extremities. Integumentary/Breasts Skin/Breast: Denies pruritus, Denies erythema and Denies rash Neurologic Neurologic: Denies confusion, Denies loss of vision and Denies weakness (Lower extremities) Psychiatric Psychiatric: Denies confusion Allergic/Immunologic Allergic/Immunologic: Denies wheezing Patient History Medical History (Updated 09/26/20 @ 17:47 by Fish Jenkins MD) Alcoholism Allergies Bilateral leg weakness Cirrhosis Depression (~1985) History of chicken pox (~1959) Restless leg syndrome Transaminitis Vitiligo (~2018) Surgical History (Updated 09/26/20 @ 17:39 by Fish Jenkins MD) No significant past surgical history Social History marital status: household members: spouse and children pets and animals: No education level: high school occupational status: employed current occupational exposures/hazards: Yes ([employer]) travel history: other leisure activities: reading and other other: Walking seatbelt use: always working smoke detector in home: Yes fire extinguisher in home: Yes carbon monox detector in home: Yes firearms in home: No do you feel safe at home: Yes Smoking Status: Former smoker alcohol intake: current during the past year weight has: decreased > 10 lbs well-balanced diet: daily or most days daily servings fruits/ve-4 caffeine: Yes (Rare) eating out: 1-3 times/week Type(s) of exercise: walking and bicycling frequency: daily duration: 15-30 minutes/day Smoking Status: Former smoker alcohol intake frequency: 3 or more drinks per day Alcohol type: hard liquor Substance Use Type: does not use Exam Initial Vital Signs Initial Vital Signs: Vital Signs Temperature 98.3 F 09/26/20 12:35 Pulse Rate 81 09/26/20 12:35 Respiratory Rate 15 09/26/20 12:35 Blood Pressure 121/59 L 09/26/20 12:35 Pulse Oximetry 95 09/26/20 12:35 Const General: cooperative and well developed Nutritional Appearance: well nourished [place] Head: normocephalic and atraumatic Mouth: oral mucosae normal Eyes Pupils: PERRL EOM: EOM intact bilaterally Other: Site interest. Neck Neck: No JVD Resp Effort & Inspection: normal respiratory effort, able to speak in complete sentences, no respiratory distress and no use of accessory muscles Auscultation: clear to auscultation bilaterally Cardio Rate: regular rate Rhythm: regular rhythm Heart Sounds: S1 normal, S2 normal, no click, no gallops, no murmurs and no rubs Pulses: normal peripheral pulses GI Other: Upper abdominal tenderness without distention, guarding or rebound. Normal bowel sounds. Skin Other: Ashen color skin. No skin lesions Neuro General: patient alert, patient awake and patient oriented x3 Other: No tremor. Normal range of motion of extremities. Flexion-extension of the knees is normal. She can perform bilateral straight leg raises. On additional testing she is ataxic with poor balance. She has difficulty supporting herself. Extrem General: full ROM, no pedal edema and no calf tenderness Psych Appearance: well kempt Mental Status: mental status grossly normal Attitude: cooperative Thought Content: normal Judgment: judgment good Course Course Course Narrative: Her gait difficulties may be a result of potential nutrition deficits associated with alcoholism. A banana bag has been given. I did not repeat the lab workup from earlier today. I discussed the case with hospitalist, Dr. Garcia. She indicated the patient would not qualify for mission, much less an observation admission. She would not qualify for long- term care. The patient was evaluated by social Work. I have signed an order for home health care. I will prescribe multivitamins, and folic acid supplements when the patient goes home. She needs follow-up with her PCM. All alcohol should be avoided. Orders Ordered: ED Orders 09/26/20 12:17 Consult to CORROSION CONTROL TECHNICIAN - Massage Therapist Stat 09/26/20 14:11 Consult to Physical Therapy Evaluate & Treat 09/26/20 16:58 Consult to Home Health Stat Magnesium Sulfate 2 gm/ Folic Acid 1 mg/ Thiamine HCl 100 mg / Multivitamins 10 ml/ Sodium Chloride 1,015.2 mls @ 250 mls/hr IV NOW ONE Stop: 09/26/20 19:57 Last Admin: 09/26/20 16:14 Dose: 250 mls/hr Documented by: KEYLA Vital Signs Vital signs: Vital Signs - 8 hr 09/26/20 12:35 09/26/20 12:43 09/26/20 13:00 Temperature 98.3 F Pulse Rate 81 111 H 114 H Respiratory Rate 15 Blood Pressure 121/59 L 155/83 H Pulse Oximetry 95 97 97 09/26/20 15:18 09/26/20 15:19 12/03/20 15:30 Temperature Pulse Rate 80 77 Respiratory Rate 17 Blood Pressure 116/59 L 112/55 L Pulse Oximetry 91 97 99 09/26/20 16:09 09/26/20 16:30 09/26/20 17:00 Temperature Pulse Rate 86 79 78 Respiratory Rate Blood Pressure 130/61 100/71 Pulse Oximetry 96 95 09/26/20 17:30 Temperature Pulse Rate 76 Respiratory Rate Blood Pressure Pulse Oximetry 96 Discharge Plan Departure Patient Disposition: Home Clinical Impression: Alcoholism, Ataxia, Nutritional deficiency Cirrhosis Qualifiers: Hepatic cirrhosis type: unspecified hepatic cirrhosis Ascites presence: unspecified Qualified Code(s): K74.60 - Unspecified cirrhosis of liver Instructions: Alcohol Use Disorder Activity Restrictions/Additional Instructions: You should completely avoid alcohol use. Be sure you are eating good meals daily. Multivitamin 1 tablet daily. Folic acid 1 tablet daily. The prescription for the medications has been sent to [facility] in [place]. Home health has been requested from the ER, be sure follow-up was arranged as soon as possible. Follow-up with your doctor next week to review lab work, and hopefully progression. Prescriptions: New folic acid 1 mg tablet 1 mg PO DAILY Qty: 100 RF: 0 multivitamin Tablet 1 tab PO DAILY Qty: 100 RF: 0 No Action sertraline 50 mg tablet 50 mg PO DAILY Qty: 30 RF: 0 Referrals: Bib Toro MD [Primary Care Provider] -
--- NOTE | 2020-09-26 14:50 | PT.IIE ---
Medical History (Last Reviewed 09/26/20 @ 04:57 by Juancho Jeong DO) Allergies Depression (~1985) History of chicken pox (~1959) Restless leg syndrome Vitiligo (~2017) Physical Therapy Inpatient Evaluation/Re-Eval M1 PT/OT-IP Prior Functional Status Start: 09/26/20 15:52 Freq: Status: Active Protocol: Document 09/26/20 14:50 AB (Rec: 09/26/20 16:09 AB [id number]) Medical Review Prior Functional Status Medical History Reviewed Yes Communication able to make needs known Mobility and Gait pt stated that she has been independent with all mobilities and ambulation without AD but started to need assistance for the last 3 weeks and /son has been assisting her. spouse stated that pt has been using a standard walker for ~ 1 weeks due to difficulty with ambulation and tends to fall backwards. 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 Social History Household Members spouse,children Living Arrangements House Number of Floors (Floors) Two Floors Number of Stairs To Enter/Railing? lives in a split level house but pt stays on the main level of the house. has 14 steps with R rail to get to the main level of the house Home Environment Standard Height Toilet Home Equipment Hand Held Shower Additional Social History Comment has a standard walker M2 PT-IP Current Condition Start: 09/26/20 15:52 Freq: Status: Active Protocol: Document 09/26/20 14:50 AB (Rec: 09/26/20 16:09 AB [email or web address]) Physical Therapy Current Condition Current Condition Evaluation Date 09/26/20 Treatment Diagnosis cirrhosis; generalized weakness Onset Date 09/26/20 Precautions Other Precautions falls M3 PT-IP Subjective Start: 09/26/20 15:52 Freq: Status: Active Protocol: Document 09/26/20 14:50 AB (Rec: 09/26/20 16:09 AB [email or web address]) Subjective Physical Therapy Visit Type Type Initial Evaluation Visit Start Time 14:50 Visit Stop Time 15:17 Total Visit Minutes 27 Number of 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 required mod A to maintain sitting balance with increase posterior trunk lean during sitting. pt educated on center of gravity and to keep trunk forward; assisted pt with postioning of trunk but only able to maintain position for ~ 10 sec and then leans backwards again. educated pt on safety and use of FWW for support. pt completed sit to stand max A and max cues and continues to have increase posterior trunk lean and pt with BLE pushing against the bed for support. assisted pt again with positioning and increasing awareness of COG and upright posture but requires max A to maintain standing balance. pt was able to march in place using FWW max A, took ~ 3 steps forward and then backwards max A and cues. presents with decrease step length and decrease floor clearance with BLE. pt is not safe to do stairs at this point. pt requested to use the toilet. Nurse in room and took over. Gait Assessment Gait Gait Assistance Required: Maximum Assistance,1 Person Assist Distance (Feet) 5 Able to Maintain Weight Bearing Status Yes During Gait Assistive Devices Assistive Device Gait Belt,Front Wheeled Walker Orthotic/Prosthetic Devices or Brace: No Gait Deviations General Gait Pattern Antalgic,Decreased Stride Length,Decreased Feet Clearance,Step-to Gait Factors Limiting Gait Function Factors Limiting Gait Function Decreased Activity Tolerance, Decreased Sensation,Decreased Strength,Difficulty Following Directions,Poor Balance,Poor Safety Awareness Comments Gait Comments pls refer to mobility section for details PT-Balance Assessment Sitting Balance and Reactions Static Sitting Balance Ability Poor Dynamic Sitting Balance Ability Poor Standing Balance and Reactions Static Standing Balance Ability Poor Dynamic Standing Balance Ability Poor Device Used using FWW M5 PT-IP Objective Assessments Start: 09/26/20 15:52 Freq: Status: Active Protocol: Document 09/26/20 14:50 AB (Rec: 09/26/20 16:09 AB [id number]) Orientation Orientation/Cognition Level of Alertness Alert Orientation Name,Situation Safety Awareness Decreased Safety Awareness Gross Range of Motion Lower Extremity ROM Assessment Within Functional Limits Strength Lower Extremity Strength Assessment Bilaterally Impaired Comments Strength Comments LLE: 3+/5 RLE : 4-/5 Coordination Assessment Gross Coordination Gross Coordination WNL Sensation Assessment Sensation Gross Sensation Right LE Impaired,Left LE Impaired Sensation Description Numbness Comments Sensation Comments stated that she has BLE neuropathy for ~ 2 years but has increased to now numbness form her knees down to B feet Muscle Tone Muscle Tone WNL Yes M6 PT-IP Treatment Start: 09/26/20 15:52 Freq: Status: Active Protocol: Document 09/26/20 14:50 AB (Rec: 09/26/20 16:09 AB [id number]) Physical Therapy Treatment Education Education Provided Safety M7 PT-IP Assessment and Plan Start: 09/26/20 15:52 Freq: Status: Active Protocol: Document 09/26/20 14:50 AB (Rec: 09/26/20 16:09 AB [id number]) PT Summary Assessment and Plan Potential Rehabilitation Potential Fair Status of Condition at Evaluation Evolving Summary Impairments Pain,ROM,Strength,Balance, Coordination,Sensation,Tone, Cognition,Bed Mobility, Transfers,Gait,Activity Tolerance Assessment Summary pt requiring max A with mobility and presents with increase posterior trunk leaning in sitting and in standing position. pt will require SNF rehab at this time to improve mobility and independence. Goals Bed Mobility Goal Standby Assistance Transfer Goal Standby Assistance,Front Wheeled Walker Gait Goal Standby Assistance,Front Wheel Walker Gait Distance 100 Other Goals up/down 14 steps R rail ascending min A Days to Meet Goals 10 Frequency of Treatment Frequency Of Treatment Once a Day Treatment Plan Physical Therapy Treatment Plan Bed Mobility Training,Transfer Training,Gait Training, Therapeutic Exercise,Balance Retraining,Discharge Planning, Hot or Cold Pack,Neuromuscular Re-ed,Coordination Retraining ,Manual Therapy Recommendations To Nursing Amount of Assist Needed 2 Person Assist Discharge Recommendations PT Discharge Recommendations SNF Rehab Transportation Needs at Discharge Wheelchair/Cabulance
[2020-09-26] MEDS: MAGNESIUM SULFATE 2 GM, FOLIC ACID 1 MG, THIAMINE 100 MG, MULTIVITAMIN 10 ML in SODIUM ... IV (16:14)
--- NOTE | 2020-09-26 16:56 | CM.SWNOTE ---
Addendum entered by Tam Soto 09/26/20 18:00: MICA MINER faxes referral to [facility] at 1800. NOAH Shipman Original Note: MICA MINER note MICA MINER consult requested for patient. Patient is a 65 y/o female who presents to ED for second time in two days. Patient presented to ED previous evening via EMS due to inability to lift from toilet, and left this AM. Patient and her present to ED this afternoon via private vehicle due to lack of resolution of symptoms. MICA MINER discusses patient?s symptoms with patient and . At time of assessment, patient has not been seen by ED provider. Patient reports she has had neuropathy in her feet for ?a while?, but reports an increase in symptoms over the past 3 weeks. Patient states ?I can?t use my legs?. MICA MINER and family discuss hopes for after today?s visit. Patient and both state that they would like patient to have the maximum use of her legs as possible. Patient, , and MICA MINER discuss HH, and patient expresses interest. expresses concern and potential need for help overnight. At this time. Dr. Jenkins enters room and meets with patient. Dr. Jenkins informs MICA MINER after that PT is being consulted for patient. Following PT assessment and medical work up, Dr. Jenkins informs MICA MINER that he is planning to admit patient, and later informs MICA MINER that hospitalist denied admission. Dr. Jenkins and MICA MINER discuss HH for support for patient and family, and Dr. Jenkins signs Face to Face form for HH for PT, OT, HH Aide, and MICA MINER. Dr. Jenkins gives verbal order for consult to HH. Dr. Jenkins and MICA MINER enter room to update patient on denial of admission to hospital. Patient indicates understanding and states ?I want to go home?. Dr. Jenkins exits room and MICA MINER reviews HH with patient and family. Patients indicate desire to enroll in HH. MICA MINER views HH rotation in office and calls [facility] . [facility] states they will be able to accept referral and request that referral be faxed to [phone]. Pl: MICA MINER to fax referral to [facility] and patient?s to DC to home. NOAH Shipman
[2020-09-26] MEDS: SERTRALINE 50 MG TABLET PO (22:51)
[2020-09-27] VITALS (12 sets, daily range): BP systolic 85–128; BP diastolic 46–62; PULSE 66–99; RESP 18; O2SAT 90–100
--- NOTE | 2020-09-27 02:54 | PC.NURSE ---
Dr Jeong made aware of pt's BP. pt is resting in bed sleeping appears comfortable. Woke pt up to assess. pt AAOx3 denies symptoms of low BP. No new orders.
--- NOTE | 2020-09-27 08:16 | PC.NURSE ---
Spoke with NOAH Dumont about getting a commode to give to patient for home. Julia suggested [employer] as a resource for getting one. Phone number is [phone]
[2020-09-27 08:35] LABS: Add Manual Diff / Slide Review NO; Basophils Absolute Auto 0 /uL (0-100); Basophils Percent Auto 0.5 % (0-2); Eosinophils Absolute Auto 100 /uL (0-450); Hematocrit 34.1 % (36-46); Hemoglobin 11.6 g/dL (12.0-16.0); Lymphocytes Absolute Auto 800 /uL (1100-4500); Lymphocytes Percent Auto 10.2 % (25-40); Mean Corpuscular HGB Conc 33.9 % (30-36); Mean Corpuscular Hemoglobin 34.8 PG (26-34); Mean Corpuscular Volume 102.5 fL (80-100); Monocytes Absolute Auto 500 /uL (0-900); Monocytes Percent Auto 7.3 % (3-14); Neutrophils Absolute Auto 6100 /uL (1500-7000); Platelet Count 123 X10^3/uL (150-400); Red Blood Cell Count 3.32 X10^6/uL (4.0-5.2); Red Cell Distribution Width 15.3 % (11.6-14.8); White Blood Cell Count 7.5 X10^3/uL (4.5-11.0)
[2020-09-27 08:44] LABS: Alanine Aminotransferase 94 IU/L (<35); Albumin Globulin Ratio 0.9 (1.0-2.8); Alkaline Phosphatase 344 U/L (38-126); Aspartate Aminotransferase 181 IU/L (14-36); BUN Creatinine Ratio 17.4 (6-22); Bilirubin Total 5.6 mg/dL (0.2-1.3); Blood Urea Nitrogen 29 mg/dL (7-17); Calcium 9.5 mg/dL (8.4-10.2); Carbon Dioxide 30 mmol/L (22-32); Chloride 99 mmol/L (98-107); Estimated Glomerular Filt Rate 30.7 mL/min (>60); Globulin 3.5 g/dL (1.7-4.1); Glucose 94 mg/dL (80-110); HEMOLYSIS < 15 (0-50); Potassium 3.2 mmol/L (3.4-5.1); Sodium 133 mmol/L (137-145); Total Protein 6.5 g/dL (6.3-8.2)
[2020-09-27] MEDS: MULTIVITAMIN 1 TABLET 1 TAB PO (08:50)
[2020-09-27] MEDS: SPIRONOLACTONE 25 MG TABLET PO (08:50)
== END 2020-09-27 10:13 | disposition home or self-care (01) ==
PROVIDERS: Emergency Provider Emergency Medicine; PCP Family Medicine
DX: R10.9 Unspecified abdominal pain (principal); R18.8 Other ascites; E63.9 Nutritional deficiency, unspecified; R27.0 Ataxia, unspecified; K74.60 Unspecified cirrhosis of liver; F10.20 Alcohol dependence, uncomplicated
CPT/HCPCS: 36415; 80053; 85025; 96360; 96361; 97162; 99281; 99284; J3475

== ENCOUNTER 2020-10-18 07:32 | Observation (INO) | payer MEDICARE, MEDICAID, SELFPAY ==
[2020-10-18] VITALS (16 sets, daily range): BP systolic 101–133; BP diastolic 57–90; PULSE 72–91; RESP 16–19; TEMP 36.2–36.8; O2SAT 91–99; BMI 28.5; BMI 31.5
--- NOTE | 2020-10-18 07:41 | ED_ITS ---
HPI - Weakness General Chief complaint: Abdominal Pain Stated complaint: Abdminal pain Time Seen by Provider: 10/18/20 07:35 Source: patient, family and EMS Mode of arrival: EMS Limitations: no limitations History of Present Illness HPI Narrative: 65-year-old female former smoker with extensive history of alcoholism and associated cirrhosis presents by EMS due to increasing generalized weakness and difficulty caring for herself at home. She has a very difficult entrance to her home and has significant difficulty. Additionally, she has abdominal pain which has been worsening over the past month or so. She had been seen multiple times early in the month and had a paracentesis as well as social Work evaluation with hopeful establishment of home nursing. She denies runny nose, sore throat or cough. She has had no fever or chills. Her abdominal pain is generalized, achy to crampy in nature and worsened by motion, while made better by rest. She denies vomiting, diarrhea or constipation. She has been taking her medications as directed. She denies any exposure to persons known to have COVID. Related Data Previous Rx's Medication Instructions Recorded sertraline 50 mg tablet 50 mg PO DAILY #30 tab 12/18/19 folic acid 1 mg PO DAILY #100 tab 09/26/20 multivitamin 1 tab PO DAILY #100 tab 09/26/20 Allergies Allergy/AdvReac Type Severity Reaction Status Date / Time No Known Drug Allergies Allergy Verified 09/26/20 12:43 Review of Systems Constitutional Constitutional: Denies chills, Reports fatigue, Denies fever(s), Denies frequent falls, Reports lethargy and Reports weakness Eyes Eyes: Denies change in vision, Denies eye discharge, Denies irritation and Denies loss of vision ENT Ears, Nose, Mouth, and Throat: Denies change in voice, Denies dizziness, Denies neck pain, Denies sore throat and Denies throat swelling Cardiovascular Cardiovascular: Denies chest pain, Denies irregular heart rhythm, Denies lightheadedness, Denies palpitations, Denies dyspnea, Denies dyspnea on exertion and Denies orthopnea Respiratory Respiratory: Denies cough, Denies dyspnea, Denies dyspnea on exertion and Denies wheezing Gastrointestinal Gastrointestinal: Reports abdominal pain, Denies change in bowel habits, Denies diarrhea, Denies nausea and Denies vomiting Musculoskeletal Musculoskeletal: Denies neck pain and Denies numbness Integumentary/Breasts Skin/Breast: Denies pruritus, Denies erythema, Denies rash and Denies wounds Neurologic Neurologic: Denies behavioral changes, Denies confusion, Denies dizziness, Denies frequent falls, Denies loss of vision, Denies numbness and Reports weakness Psychiatric Psychiatric: Denies anxiety, Denies behavioral changes, Denies confusion, Denies depression, Denies homicidal ideation and Denies suicidal ideation Endocrine Endocrine: Reports fatigue, Denies flushing and Denies palpitations Hematologic/Lymphatic Hematologic/Lymphatic: Denies easy bruising Allergic/Immunologic Allergic/Immunologic: Denies urticaria, Denies throat swelling and Denies wheezing Patient History Medical History Alcoholism Allergies Bilateral leg weakness Cirrhosis Depression (~1985) History of chicken pox (~1958) Restless leg syndrome Transaminitis Vitiligo (~2017) Surgical History No significant past surgical history Social History marital status: household members: spouse and children pets and animals: No education level: high school occupational status: employed current occupational exposures/hazards: Yes ([employer]) travel history: other leisure activities: reading and other other: Walking seatbelt use: always working smoke detector in home: Yes fire extinguisher in home: Yes carbon monox detector in home: Yes firearms in home: No do you feel safe at home: Yes Smoking Status: Former smoker alcohol intake: current during the past year weight has: decreased > 10 lbs well-balanced diet: daily or most days daily servings fruits/ve-4 caffeine: Yes (Rare) eating out: 1-3 times/week Type(s) of exercise: walking and bicycling frequency: daily duration: 15-30 minutes/day Smoking Status: Former smoker alcohol intake frequency: 3 or more drinks per day Alcohol type: hard liquor Substance Use Type: does not use Exam Narrative Exam Narrative: GENERAL: [65] year old patient appears older than stated age. Well-nourished, well-developed patient, in mild distress. HEAD: Atraumatic. Normocephalic. EYES: Pupils equal round and reactive. Extraocular motions intact. No scleral icterus. No injection or drainage. ENT: dry mucous Nose without bleeding, purulent drainage. Throat without erythema, tonsillar hypertrophy or exudate. Airway patent. NECK: Trachea midline. Non tender CARDIOVASCULAR: Regular rate and rhythm without murmurs, gallops, or rubs. RESPIRATORY: Clear to auscultation. Breath sounds equal bilaterally. No wheezes, rales, or rhonchi. GASTROINTESTINAL: Moderate distension, mild fluid wave, tender throughout, no redness or warmth, some aging ecchymosis in the right lower quadrant consistent with recent paracentesis EXTREMITIES: No edema or joint tenderness. BACK: Nontender without deformity or crepitance. No flank tenderness. NEURO: A awake, sluggish and slow to respond with some obvious confusion. No focal weakness appreciated, she did require 2 people to hold her up. SKIN: No rash or erythema of visible areas Initial Vital Signs Initial Vital Signs: Vital Signs Pulse Rate 90 10/18/20 07:36 Blood Pressure 133/61 10/18/20 07:36 Pulse Oximetry 97 10/18/20 07:36 Course Orders Ordered: ED Orders 10/18/20 07:39 Complete Blood Count AUTO DIFF Stat Lactate (Lactic Acid) Stat Partial Thromboplastin Time Stat Prothrombin Time INR Stat EKG-12 Lead Stat 10/18/20 07:44 COVID19 Stat 10/18/20 08:05 Ammonia (NH3) Stat Comprehensive Metabolic Panel Stat Ferritin Stat Magnesium Stat NT-proBNP (BNP-Adult 18+) Stat Procalcitonin Stat 10/18/20 08:16 CT abdomen pelvis w con Stat Consultations Consultation #1: discussed with hospitalist (Wanda) will admit and perform diagnostic tap upon arrival to floor. Will hold on ABX for now. Vital Signs Vital signs: Vital Signs - 8 hr 10/18/20 07:36 10/18/20 07:38 10/18/20 08:00 Temperature 98.2 F Pulse Rate 90 91 H 82 Respiratory Rate 18 Blood Pressure 133/61 133/61 Pulse Oximetry 97 98 97 10/18/20 08:30 10/18/20 09:00 10/18/20 09:09 Temperature Pulse Rate 72 85 81 Respiratory Rate Blood Pressure 127/58 L Pulse Oximetry 96 97 95 MDM - Weakness Lab Data Result diagrams: 10/18/20 08:05 10/18/20 08:05 Labs: Lab Results 10/18/20 10/18/20 10/18/20 Range/Units 07:55 08:05 08:05 WBC 11.4 H (4.5-11.0) X10^3/uL RBC 3.18 L (4.0-5.2) X10^6/uL Hgb 10.6 L (12.0-16.0) g/dL Hct 31.3 L (36-46) % MCV 98.4 (80-100) fL MCH 33.2 (26-34) PG MCHC 33.7 (30-36) % RDW 14.0 (11.6-14.8) % Plt Count 211 (150-400) X10^3/uL Neut % (Auto) 81.5 H (50-75) % Lymph % (Auto) 10.3 L (25-40) % Zapata % (Auto) 5.6 (3-14) % Eos % (Auto) 1.3 L (2-4) % Baso % (Auto) 1.3 (0-2) % Neut # (Auto) 9300 H (5002-1147) /uL Lymph # (Auto) 1200 (5571-8267) /uL Zapata # (Auto) 600 (0-900) /uL Eos # (Auto) 100 (0-450) /uL Baso # (Auto) 100 (0-100) /uL PT 14.3 H (10.1-12.7) SECONDS INR 1.2 (0.9-1.3) APTT 32 (26.4-36.2) SECONDS Sodium (137-145) mmol/L Potassium (3.4-5.1) mmol/L Chloride (98-107) mmol/L Carbon Dioxide (22-32) mmol/L BUN (7-17) mg/dL Creatinine (0.52-1.04) mg/dL Estimated GFR (>60) mL/min BUN/Creatinine Ratio (6-22) Glucose (80-110) mg/dL Lactate (0.7-2.1) mmol/L Calcium (8.4-10.2) mg/dL Magnesium (1.6-2.3) mg/dL Ferritin (11-264) ng/mL Total Bilirubin (0.2-1.3) mg/dL AST (14-36) IU/L ALT (<35) IU/L Alkaline Phosphatase (38-126) U/L Ammonia (9-30) umol/L NT-Pro-B Natriuret Pep (<125) pg/mL Total Protein (6.3-8.2) g/dL Albumin (3.5-5.0) g/dL Globulin (1.7-4.1) g/dL Albumin/Globulin Ratio (1.0-2.8) COVID-19 PCR Negative (Negative) 10/18/20 10/18/20 10/18/20 Range/Units 08:05 08:05 08:05 WBC (4.5-11.0) X10^3/uL RBC (4.0-5.2) X10^6/uL Hgb (12.0-16.0) g/dL Hct (36-46) % MCV (80-100) fL MCH (26-34) PG MCHC (30-36) % RDW (11.6-14.8) % Plt Count (150-400) X10^3/uL Neut % (Auto) (50-75) % Lymph % (Auto) (25-40) % Zapata % (Auto) (3-14) % Eos % (Auto) (2-4) % Baso % (Auto) (0-2) % Neut # (Auto) (4125-9541) /uL Lymph # (Auto) (8883-7260) /uL Zapata # (Auto) (0-900) /uL Eos # (Auto) (0-450) /uL Baso # (Auto) (0-100) /uL PT (10.1-12.7) SECONDS INR (0.9-1.3) APTT (26.4-36.2) SECONDS Sodium 128 L (137-145) mmol/L Potassium 3.9 (3.4-5.1) mmol/L Chloride 98 (98-107) mmol/L Carbon Dioxide 28 (22-32) mmol/L BUN 21 H (7-17) mg/dL Creatinine 1.23 H (0.52-1.04) mg/dL Estimated GFR 43.7 L (>60) mL/min BUN/Creatinine Ratio 17.1 (6-22) Glucose 90 (80-110) mg/dL Lactate 1.3 (0.7-2.1) mmol/L Calcium 8.9 (8.4-10.2) mg/dL Magnesium 1.6 (1.6-2.3) mg/dL Ferritin 713 H (11-264) ng/mL Total Bilirubin 3.1 H (0.2-1.3) mg/dL AST 305 H (14-36) IU/L ALT 162 H (<35) IU/L Alkaline Phosphatase 200 H (38-126) U/L Ammonia 33 H (9-30) umol/L NT-Pro-B Natriuret Pep 862 H (<125) pg/mL Total Protein 6.4 (6.3-8.2) g/dL Albumin 3.0 L (3.5-5.0) g/dL Globulin 3.4 (1.7-4.1) g/dL Albumin/Globulin Ratio 0.9 L (1.0-2.8) COVID-19 PCR (Negative) Imaging Data CT scan - abdomen/pelvis: Radiologist Impression: 4 DO Cameron Weathers Patient Imaging - Gwen Tyson 65 F 1955 ACTIVITY DATE EXAM STATUS AUTHOR 10/18/20 08:[address] Scan ReportSigned Patient: Gwen Tyson AMR#: [id number]: 4Acct:[id number]/Sex: 65 / FDate of Service: 10/18/20Loc: EDAccession Number: [id number] Procedure: CT abdomen pelvis w con Ordering Provider: Lebron Tovar D.O. PROCEDURE: CT ABDOMEN PELVIS W CON INDICATIONS: severe, worsening abdominal pain TECHNIQUE: After the administration of intravenous contrast, 5 mm thick sections acquired from the diaphragm to the symphysis. 5 mm coronal and sagittal reformats were acquired. For radiation dose reduction, the following was used: automated exposure control, adjustment of mA and/or kV according to patient size. COMPARISON: None. FINDINGS: Image quality: Excellent. ABDOMEN: Lung bases: Mild bibasilar atelectasis. Heart size is normal. Small hiatal hernia. Solid organs: Liver appears cirrhotic. There is more relative hypoattenuation of the right hepatic lobe near the falciform ligament likely related to geographic fatty infiltration. A 9 mm hypodensity along the anterior margin of the right hepatic lobe (image 19, series 2) likely representing a small cyst or hemangioma. Similar hypodensity measuring approximately 4 mm is seen near the liver dome (image 12, series 2). There is a moderate-large amount of scattered ascites seen throughout the abdomen. There is an oblong fluid attenuation lesion at the expected location of the gallbladder. This likely represents the distended gallbladder surrounded by ascites. Biliary system is non dilated. Pancreas enhances normally. Spleen is normal in size and enhancement. No adrenal nodules. Kidneys demonstrate normal size and enhancement, without hydronephrosis. Peritoneum and bowel: Scattered colonic diverticulosis without definite diverticulitis as the bowel is surrounded by ascites. This likely accounts for mild circumfere ntial wall thickening of several loops of small bowel which are surrounded by ascites. Normal appendix. No evidence for bowel obstruction. No free air seen. Nodes and vessels: No retroperitoneal or mesenteric adenopathy by size criteria. Aorta and inferior vena cava are normal in size. Scattered atherosclerotic calcifications of the abdominal aorta and iliac vessels without aneurysmal dilatation. Miscellaneous: No ventral hernias. PELVIS: Genitourinary: Bladder wall thickness is normal. Miscellaneous: No inguinal hernias or adenopathy. Bones: No suspicious bony lesions. No acute vertebral body compression fractures. IMPRESSION: 1. Cirrhotic appearance of the liver with moderate-large amount of ascites. 2. Scattered colonic diverticulosis without definitive evidence for acute diverticulitis as there is ascites noted adjacent to the diverticula. No evidence for organized fluid collection or free air. 3. Normal appendix. 4. Distended gallbladder likely related to fasting state. If there is clinical concern for cholecystitis, further evaluation with ultrasound can be considered. 5. Likely geographic fatty infiltration of the right hepatic lobe. 6. Small hiatal hernia. Dictated by: Vladimir Smith M.D. on 10/18/2020 at 8:58 Approved by: Vladimir Smith M.D. on 10/18/2020 at 9:12 [facility] Narrative Medical decision making narrative: 65F with chronic illness has increased w eakness over the past day or two, and now cannot even stand with just one person's help Discharge Plan Departure Patient Disposition: Admitted as Observation Clinical Impression: Weakness Fatigue Qualifiers: Fatigue type: unspecified Qualified Code(s): R53.83 - Other fatigue Abdominal ascites Qualifiers: Ascites type: due to alcoholic cirrhosis Qualified Code(s): K70.31 - Alcoholic cirrhosis of liver with ascites Admit Date/Time: 10/18/20 09:33 Admit Provider: Rickie Muñoz
[2020-10-18 08:11] LABS: Add Manual Diff / Slide Review NO; Basophils Absolute Auto 100 /uL (0-100); Basophils Percent Auto 1.3 % (0-2); Eosinophils Absolute Auto 100 /uL (0-450); Eosinophils Percent Auto 1.3 % (2-4); Hematocrit 31.3 % (36-46); Hemoglobin 10.6 g/dL (12.0-16.0); Lymphocytes Absolute Auto 1200 /uL (1100-4500); Lymphocytes Percent Auto 10.3 % (25-40); Mean Corpuscular HGB Conc 33.7 % (30-36); Mean Corpuscular Hemoglobin 33.2 PG (26-34); Mean Corpuscular Volume 98.4 fL (80-100); Monocytes Absolute Auto 600 /uL (0-900); Monocytes Percent Auto 5.6 % (3-14); Neutrophils Absolute Auto 9300 /uL (1500-7000); Neutrophils Percent Auto 81.5 % (50-75); Platelet Count 211 X10^3/uL (150-400); Red Blood Cell Count 3.18 X10^6/uL (4.0-5.2); White Blood Cell Count 11.4 X10^3/uL (4.5-11.0)
[2020-10-18 08:15] LABS: COVID19 -Nasal RAPID Negative (Negative)
--- NOTE | 2020-10-18 08:16 | DI.CT.S_ITS ---
PROCEDURE: CT ABDOMEN PELVIS W CON INDICATIONS: severe, worsening abdominal pain TECHNIQUE: After the administration of intravenous contrast, 5 mm thick sections acquired from the diaphragm to the symphysis. 5 mm coronal and sagittal reformats were acquired. For radiation dose reduction, the following was used: automated exposure control, adjustment of mA and/or kV according to patient size. COMPARISON: None. FINDINGS: Image quality: Excellent. ABDOMEN: Lung bases: Mild bibasilar atelectasis. Heart size is normal. Small hiatal hernia. Solid organs: Liver appears cirrhotic. There is more relative hypoattenuation of the right hepatic lobe near the falciform ligament likely related to geographic fatty infiltration. A 9 mm hypodensity along the anterior margin of the right hepatic lobe (image 19, series 2) likely representing a small cyst or hemangioma. Similar hypodensity measuring approximately 4 mm is seen near the liver dome (image 12, series 2). There is a moderate-large amount of scattered ascites seen throughout the abdomen. There is an oblong fluid attenuation lesion at the expected location of the gallbladder. This likely represents the distended gallbladder surrounded by ascites. Biliary system is non dilated. Pancreas enhances normally. Spleen is normal in size and enhancement. No adrenal nodules. Kidneys demonstrate normal size and enhancement, without hydronephrosis. Peritoneum and bowel: Scattered colonic diverticulosis without definite diverticulitis as the bowel is surrounded by ascites. This likely accounts for mild circumferential wall thickening of several loops of small bowel which are surrounded by ascites. Normal appendix. No evidence for bowel obstruction. No free air seen. Nodes and vessels: No retroperitoneal or mesenteric adenopathy by size criteria. Aorta and inferior vena cava are normal in size. Scattered atherosclerotic calcifications of the abdominal aorta and iliac vessels without aneurysmal dilatation. Miscellaneous: No ventral hernias. PELVIS: Genitourinary: Bladder wall thickness is normal. Miscellaneous: No inguinal hernias or adenopathy. Bones: No suspicious bony lesions. No acute vertebral body compression fractures. IMPRESSION: 1. Cirrhotic appearance of the liver with moderate-large amount of ascites. 2. Scattered colonic diverticulosis without definitive evidence for acute diverticulitis as there is ascites noted adjacent to the diverticula. No evidence for organized fluid collection or free air. 3. Normal appendix. 4. Distended gallbladder likely related to fasting state. If there is clinical concern for cholecystitis, further evaluation with ultrasound can be considered. 5. Likely geographic fatty infiltration of the right hepatic lobe. 6. Small hiatal hernia. Dictated by: Vladimir Smith M.D. on 10/18/2020 at 8:58 Approved by: Vladimir Smith M.D. on 10/18/2020 at 9:12
[2020-10-18 08:17] LABS: INR 1.2 (0.9-1.3); Prothrombin Time 14.3 SECONDS (10.1-12.7)
[2020-10-18 08:19] LABS: PTT Partial Thromboplastin Tim 32 SECONDS (26.4-36.2)
[2020-10-18 08:20] LABS: Lactate (Lactic Acid) 1.3 mmol/L (0.7-2.1)
[2020-10-18 08:21] LABS: Ammonia (NH3) 33 umol/L (9-30)
[2020-10-18 08:22] LABS: Alanine Aminotransferase 162 IU/L (<35); Albumin Globulin Ratio 0.9 (1.0-2.8); Alkaline Phosphatase 200 U/L (38-126); Aspartate Aminotransferase 305 IU/L (14-36); BUN Creatinine Ratio 17.1 (6-22); Bilirubin Total 3.1 mg/dL (0.2-1.3); Blood Urea Nitrogen 21 mg/dL (7-17); Calcium 8.9 mg/dL (8.4-10.2); Carbon Dioxide 28 mmol/L (22-32); Chloride 98 mmol/L (98-107); Estimated Glomerular Filt Rate 43.7 mL/min (>60); Globulin 3.4 g/dL (1.7-4.1); Glucose 90 mg/dL (80-110); HEMOLYSIS < 15 (0-50); Magnesium 1.6 mg/dL (1.6-2.3); Potassium 3.9 mmol/L (3.4-5.1); Sodium 128 mmol/L (137-145); Total Protein 6.4 g/dL (6.3-8.2)
[2020-10-18 08:31] LABS: NT-proBNP (BNP-Adult 18+) 862 pg/mL (<125)
[2020-10-18 08:56] LABS: Ferritin 713 ng/mL (11-264)
--- NOTE | 2020-10-18 10:01 | PC.NURSE ---
report to CHRISTIANO Brownlee in AC #[id number]
[2020-10-18 10:10] LABS: Procalcitonin 0.33 ng/mL (<0.5)
[2020-10-18 10:45] LABS: Bacteria Urine None Seen; RBC Urine None Seen (0-5/HPF); WBC Urine None Seen (0-5/HPF)
[2020-10-18 10:59] LABS: Culture Indicated Urine Cult Not Indicated; Urine Comments Microscopic Normal
--- NOTE | 2020-10-18 11:31 | PM.PROC.1 ---
Procedures Date/Time Date of procedure: 10/18/20 Time of procedure: 11:00 Paracentesis Time out performed: Yes Indication: Ascites Procedure: diagnostic paracentesis Location: LLQ (z-track technique) Local anesthetic used: lidocaine 1% Amount of anesthesia used (ml): 5 Bedside ultrasound used: no Preparation: sterile prep and drape Amount of fluid obtained (ml): 70 Fluid: cloudy Size of needle used: 22 Post procedure exam: awake, alert Patient tolerated procedure: well Complications: none
--- NOTE | 2020-10-18 11:33 | PM.HP.1 ---
History of Present Illness History of Present Illness Date Patient Seen: 10/18/20 Time Patient Seen: 10:45 Chief complaint: Abdminal pain Narrative: Patient is a 65-year-old female with history of EtOH cirrhosis, depression who was brought to ER by EMS due to progressive severe weakness. Patient was seen in the ER earlier this month due to weakness. She was noted to have significant ascites and paracentesis was performed. Blood and ascites cultures were negative then. Social work saw patient in ER and arrange for home care and return home. Patient and states that she did well for a while but then has become progressively weak over the past couple of weeks. She has had multiple falls with EMS having to come to the house to assist in getting her up from the floor. She endorses bruising from falling. She denies any pain anywhere. She denies fever, nausea, vomiting, diarrhea, cough, shortness of breath, abdominal pain, black or tardy stools. Her last alcohol drink was 5 weeks ago. She does note progressive swelling of her abdomen and lower extremities which started relatively recently. On ER evaluation, she has stable vitals. WBC is 11.4 with 81.5% neutrophils, hemoglobin 10.6, platelets 211, sodium 128, potassium 3.9, BUN 21, creatinine 1.23, INR 1.2, ferritin 713, total bilirubin 3.1, AST 305, ALT 162, alk-phos 200, ammonia 33, total protein 6.4, albumin 3.0, procalcitonin 0.33. She has normal urinalysis microscopic. Patient History Medical History Alcoholism Allergies Bilateral leg weakness Cirrhosis Depression (~1985) History of chicken pox (~195) Restless leg syndrome Transaminitis Vitiligo (~2017) Surgical History No significant past surgical history Family & Social History Social History: household members spouse,children other Walking Safety & Behavioral: Feels Safe in Current Yes Environment Been Physically Hurt or No Threatened By a Person Tobacco & Substance use: Smoking Status Former smoker alcohol intake current alcohol intake frequency 3 or more drinks per day Substance Use Type does not use Meds Home Medications and Allergies Home Medications Medication Instructions Recorded Confirmed Type sertraline 50 mg tablet 50 mg PO DAILY #30 tab 12/18/19 09/26/20 Rx folic acid 1 mg PO DAILY #100 tab 09/26/20 Rx multivitamin 1 tab PO DAILY #100 tab 09/26/20 Rx Allergies Allergy/AdvReac Type Severity Reaction Status Date / Time No Known Drug Allergies Allergy Verified 09/26/20 12:43 Review of Systems Review of Systems ROS: Yes All systems reviewed with the patient and are negative except as otherwise documented Exam Vital Signs (past 8 hours): - 10/18/20 07:36 10/18/20 07:38 10/18/20 08:00 Temperature 98.2 F Pulse Rate 90 91 H 82 Respiratory Rate 18 Blood Pressure 133/61 133/61 Pulse Oximetry 97 98 97 10/18/20 08:30 10/18/20 09:00 10/18/20 09:09 Temperature Pulse Rate 72 85 81 Respiratory Rate Blood Pressure 127/58 L Pulse Oximetry 96 97 95 10/18/20 09:30 10/18/20 09:49 10/18/20 10:00 Temperature Pulse Rate 76 82 76 Respiratory Rate Blood Pressure 118/58 L 125/62 119/58 L Pulse Oximetry 97 91 98 10/18/20 10:44 Temperature 97.1 F L Pulse Rate 78 Respiratory Rate 19 Blood Pressure 121/90 Pulse Oximetry 99 Oxygen Delivery Method Room Air Oxygen Flow Rate 0 Narrative Exam Narrative: General: Alert and cooperative female in no acute distress HEENT: Normocephalic atraumatic, anicteric, pupils equal, EOMI Neck: Supple no lymphadenopathy Lungs: Clear to auscultation Heart: Normal S1 and S2, regular rhythm, no murmur Abdomen: Obese, moderate to large amount of ascites with fluid wave present, not tense ascites, not tender, liver and spleen edge not palpable Extremities: Trace to 1+ edema in lower legs Neurological: Affect normal, sensorium intact, speech fluent, no tremor, no focal weakness Skin: There is bruising right lower quadrant and right arm Objective Labs Result Diagrams: 10/18/20 08:05 10/18/20 08:05 Labs: Laboratory Results - last 24 hr 10/18/20 10/18/20 10/18/20 07:55 08:05 08:05 WBC 11.4 H RBC 3.18 L Hgb 10.6 L Hct 31.3 L MCV 98.4 MCH 33.2 MCHC 33.7 RDW 14.0 Plt Count 211 Neut % (Auto) 81.5 H Lymph % (Auto) 10.3 L [place] % (Auto) 5.6 Eos % (Auto) 1.3 L Baso % (Auto) 1.3 Neut # (Auto) 9300 H Lymph # (Auto) 1200 [place] # (Auto) 600 Eos # (Auto) 100 Baso # (Auto) 100 PT 14.3 H INR 1.2 APTT 32 Sodium Potassium Chloride Carbon Dioxide BUN Creatinine Estimated GFR BUN/Creatinine Ratio Glucose Lactate Calcium Magnesium Ferritin Total Bilirubin AST ALT Alkaline Phosphatase Ammonia NT-Pro-B Natriuret Pep Total Protein Albumin Globulin Albumin/Globulin Ratio Procalcitonin Urine RBC Urine WBC Urine Bacteria Ur Culture Indicated? Micro UA Comment COVID-19 PCR Negative 10/18/20 10/18/20 10/18/20 08:05 08:05 08:05 WBC RBC Hgb Hct MCV MCH MCHC RDW Plt Count Neut % (Auto) Lymph % (Auto) [place] % (Auto) Eos % (Auto) Baso % (Auto) Neut # (Auto) Lymph # (Auto) [place] # (Auto) Eos # (Auto) Baso # (Auto) PT INR APTT Sodium 128 L Potassium 3.9 Chloride 98 Carbon Dioxide 28 BUN 21 H Creatinine 1.23 H Estimated GFR 43.7 L BUN/Creatinine Ratio 17.1 Glucose 90 Lactate 1.3 Calcium 8.9 Magnesium 1.6 Ferritin 713 H Total Bilirubin 3.1 H AST 305 H ALT 162 H Alkaline Phosphatase 200 H Ammonia 33 H NT-Pro-B Natriuret Pep 862 H Total Protein 6.4 Albumin 3.0 L Globulin 3.4 Albumin/Globulin Ratio 0.9 L Procalcitonin Urine RBC Urine WBC Urine Bacteria Ur Culture Indicated? Micro UA Comment COVID-19 PCR 10/18/20 10/18/20 08:05 10:01 WBC RBC Hgb Hct MCV MCH MCHC RDW Plt Count Neut % (Auto) Lymph % (Auto) [place] % (Auto) Eos % (Auto) Baso % (Auto) Neut # (Auto) Lymph # (Auto) [place] # (Auto) Eos # (Auto) Baso # (Auto) PT INR APTT Sodium Potassium Chloride Carbon Dioxide BUN Creatinine Estimated GFR BUN/Creatinine Ratio Glucose Lactate Calcium Magnesium Ferritin Total Bilirubin AST ALT Alkaline Phosphatase Ammonia NT-Pro-B Natriuret Pep Total Protein Albumin Globulin Albumin/Globulin Ratio Procalcitonin 0.33 Urine RBC None seen Urine WBC None seen Urine Bacteria None seen Ur Culture Indicated? Cult not indicated Micro UA Comment Microscopic normal COVID-19 PCR Assessment & Plan Assessment & Plan narrative: This is a 65-year-old female with ETOH cirrhosis who appears to have decompensated with development of moderate to large ascites and presenting with severe progressive weakness. 1. Severe weakness, acute to subacute, present on admission -etiology unclear, may be related to infection such as SBP versus decompensated cirrhosis versus delayed effects of long-term alcoholism -patient has moderate to severe ascites but does not present with tense abdomen and doubtful ascites itself is cause of her weakness -WBC mildly elevated with left shift, procalcitonin 0.33 -assess for subacute bacterial peritonitis -provide nutritional support with IV banana bag x1, daily MVI, folate and thiamine -OT and PT consult 2. Cirrhotic ascites, acute to subacute, present on admission -has moderate to severe soft ascites on exam -diagnostic paracentesis to rule out SBP -start spironolactone 50 mg b.i.d. and furosemide 40 mg p.o. q.d. -consider large volume U/S guided paracentesis if patient not responding to diuretic therapy 3. ETOH cirrhosis with decompensation, chronic, present on admission -bilirubin 3.1 versus 5.6 on 09/27/2020, AST 305, ALT 162, alk-phos 200, INR 1.2, ammonia 33 -CT abdomen/pelvis with contrast: Liver cirrhosis with moderate to large amount of ascites, fatty infiltration of right hepatic lobe -last ETOH drink 5 weeks DIRECTOR PATIENT -check hep B and C serologies 4. Hyponatremia, acute on chronic, present on admission -serum sodium 128, previous serum sodium 133 on 09/27 and 128 on 09/25 -likely related to fluid retention secondary to cirrhosis -recheck electrolytes after initiation of diuretic therapy 5. Likely moderate CKD -creatinine 1.23, estimated GFR 43.7; previous creatinine 1.67 -repeat renal function labs tomorrow since patient received IV contrast with CT 6. Chronic depression -affect normal, continue patient's sertraline 50 mg q.d. DVT prophylaxis: Lovenox 30 mg subQ daily Surrogate decisionmaker: Patient admitted to hospital observation due to weakness requiring maximal assistance, hyponatremia and evaluation for possible SBP.
[2020-10-18 11:46] LABS: Albumin Body Fluid < 1.0 g/dL; Total Protein Body Fluid < 2.0 g/dL
[2020-10-18 11:59] LABS: Alanine Aminotransferase 155 IU/L (<35); Albumin 2.8 g/dL (3.5-5.0); Albumin Globulin Ratio 0.8 (1.0-2.8); Alkaline Phosphatase 188 U/L (38-126); Aspartate Aminotransferase 306 IU/L (14-36); Bilirubin Conjugated 0.1 md/dL (0.0-0.3); Bilirubin Unconjugated 1.2 mg/dL (0.0-1.1); Globulin 3.5 g/dL (1.7-4.1); HEMOLYSIS < 15 (0-50); Total Protein 6.3 g/dL (6.3-8.2)
[2020-10-18 12:02] LABS: Body Fluid Tot Nucleated Cells 94 /uL
[2020-10-18 12:03] LABS: Body Fluid Red Blood Cells 161 /uL
[2020-10-18 13:13] LABS: Body Fluid Appearance CLOUDY; Body Fluid Clotted? NO CLOTS PRESENT; Body Fluid Color YELLOW; Polynuclear WBC Body Fluid 64 %
[2020-10-18 13:14] LABS: Eosinophils Body Fluid 10 %; Mononuclear WBC Body Fluid 12 %
[2020-10-18 13:15] LABS: Other Cells Body Fluid 14 %
[2020-10-18] MEDS: MAGNESIUM SULFATE 2 GM, FOLIC ACID 1 MG, THIAMINE 100 MG, MULTIVITAMIN 10 ML in SODIUM ... IV (13:15)
[2020-10-18] MEDS: FUROSEMIDE 40 MG TABLET PO (13:15)
[2020-10-18 13:24] LABS: Creatine Kinase 1209 U/L (30-135)
--- NOTE | 2020-10-18 13:49 | PC.NURSE ---
admitted pt to room 223 from ED- her vss, hrr, no peripheral edema but noted large amount ascites- DR. GANDARA PERFORMED BEDSDIE PARA CENTESIS AND REMOVED TOTAL OF 80ML YELLOW SLIGHTLY CLOUDY FLUID FROM LLQ AND SENT TO LAB FOR ANALYSIS- PT TOLERATED WELL. SHE HAS A BANANA BAG INFUSING AT 125CC/H INTO A NEW IV PREVIOUS ONE IN LAC WAS LEAKING ( REMOVED). SPOUSE IS AT BEDSIDE AND HELPFUL WITH ADMISSION ASSESSMENT. PT HAS HAD PROB WITH ETOH IN PAST AND REPORTS LAST DRINK APPROX 5 WEEKS AGO- DRINK OF CHOICE, IS WHISKEY. SHE HAS HAD FREQUENT FALLS AND NEAR FALLS AT HOME OVER THE PAST 3 MONTHS - WORSENING IN THE LAST WEEK.
--- NOTE | 2020-10-18 14:27 | OT.IP.EVAL ---
Past Medical History (Last Reviewed 10/18/20 @ 08:57 by Lebron Tovar DO) Alcoholism Allergies Bilateral leg weakness Cirrhosis Depression (~1985) History of chicken pox (~1959) Restless leg syndrome Transaminitis Vitiligo (~2018) Surgical History (Last Reviewed 10/18/20 @ 08:57 by Lebron Tovar DO) No significant past surgical history Occupational Therapy Inpatient Evaluation/Re-Eval M1 PT/OT-IP Prior Functional Status Start: 10/18/20 14:33 Freq: NEEDED Status: Active Protocol: Document 10/18/20 16:16 CGR (Rec: 10/18/20 16:36 R [id number]) Medical Review Prior Functional Status Medical History Reviewed Yes Communication Pt is an effective verbal communicator. Mobility and Gait Indep until august. 5 falls since then. Pt has been using walker and has been helping her out of bed and around sometimes. she mostly was walking on her own but recently her legs have been locking up and giving out during mobility. Activities of Daily Living and IADL's Pt indicates that she was IND in all ADLs until August when she became progressively weaker. Pt's has been assisting her since. Social History Household Members spouse,children Living Arrangements House Number of Floors (Floors) Two Floors Number of Stairs To Enter/Railing? 14STE w/rail on R assending Home Environment Standard Height Toilet,Tub/ Shower Home Equipment Manual Wheelchair,Bedside Commode,Hand Held Shower,Grab Bars In Shower Additional Social History Comment Pt has standard walker; has hx of CVA and Parkinson's M2 OT-IP Current Condition Start: 10/18/20 16:16 Freq: Status: Active Protocol: Document 10/18/20 16:16 CGR (Rec: 10/18/20 16:36 R [id number]) Occupational Therapy Current Condition Current Condition Evaluation Date 10/18/20 Treatment Diagnosis abdominal pain, generalized weakness, frequent falls Diagnosis Onset Date 10/18/20 M3 OT- IP Subjective and Pain Start: 10/18/20 16:16 Freq: Status: Active Protocol: Document 10/18/20 16:16 CGR (Rec: 10/18/20 16:36 CGR [id number]) OT- Subjective Occupational Therapy Visit Type Type Initial Evaluation Visit Start Time 13:53 Visit Stop Time 14:27 Total Visit Minutes 34 Notes Partial co-treat with P.T. OT Pain Assessment Pain When Pain Assessed At Rest Pain Present Pain Present Denied Pain M4 OT- IP ADL's Start: 10/18/20 16:16 Freq: Status: Active Protocol: Document 10/18/20 16:16 CGR (Rec: 10/18/20 16:36 CGR [id number]) OT [id number] Comments OT Self-Feeding Comments Not meal time OT ADL-Grooming Comments OT Grooming Comments Pt declined (offered after mobility, pt states fatigue) OT ADL-Oral Care Comments Oral Care Comments Pt declined (offered after mobility, pt states fatigue) OT ADL-Dressing General Eval Lower Body Dressing Ability Total Assistance Areas Needing Assistance Socks OT ADL-Toileting General Evaluation Toileting Ability Standby Assistance Devices Toileting Assistive Devices Commode Comments OT Toileting Comments Pt used BSC for urination. Pt without briefs on and did not move gown prior to sitting. She was able to perform front pericare in standing reaching from the front. OT ADL-Bathing Comments OT Bathing Comments Not performed on this date. M5 OT- IP IADL's Start: 10/18/20 16:16 Freq: Status: Active Protocol: Document 10/18/20 16:16 CGR (Rec: 10/18/20 16:36 R [id number]) OT-Instrumental Activities of Daily Living Deficits IADL Deficits Identified No Deficits Home Safety Awareness Awareness of Need for Assistance at Home Good Awareness Ability to Problem Solve Emergency Able to Problem Solve Situations M6 OT- IP Functional Cognition Start: 10/18/20 16:16 Freq: Status: Active Protocol: Document 10/18/20 16:16 CGR (Rec: 10/18/20 16:36 R [id number]) Cognitive Factors Limiting Selfcare Function Cognitive Ability Level of Alertness Alert Patient Orientation Name,Age,Birthday,Month,Date, Year,Day of Week,Place, Situation Attention Span Ability Capable of Focused Attention, Capable of Sustained Attention Ability to Follow Commands Able to Follow One Step Commands Memory Description No Deficits Noted Safety Awareness Underestimates Need for Assistance Cognitive Comments Cognitive Assessment Comments Pt may benefit from formal cog assessment for baseline level given recent physical decline . OT- Vision and Hearing OT- Hearing Assessment OT- Hearing Assessment Hearing Impaired OT- Vision Assessment Visual Acuity Glasses For Reading Visual Attentiveness WFL Occular Pursuits WFL Vision Assessment Comments Pt is able to perform occular pursuits with extra time and wihout smooth pursuits. M7 OT- IP Mobility and Balance Start: 10/18/20 16:16 Freq: Status: Active Protocol: Document 10/18/20 16:16 CGR (Rec: 10/18/20 16:36 CGR [id number]) OT- Bed Mobility Assessment Rolling Type of Rolling Roll to Right Level of Assistance Maximum Assistance,1 Person Assistance Supine to Sit Supine to Sit Assist Maximum Assistance,1 Person Assistance Sit to Supine Sit to Supine Assist Moderate Assistance,1 Person Assistance Scooting Scooting to Edge of Bed Standby Assistance OT-Transfer Assessment Sit to and From Stand Sit to and from Stand Moderate Assistance,1 Person Assistance Transfers Transfer Ability Moderate Assistance,1 Person Assistance Technique Transfer Destination Bed,Bedside Commode Transfer Technique Stand Step Pivot Devices Transfer Assistive Devices Gait Belt,Front Wheeled Walker Comments Mobility Comments Pt needs cues for hand placement and safety. Pt requested to transfer to the [facility] [place] and progressed with her sit to stand with each time. OT- Balance Assessment Sitting Balance and Reactions Static Sitting Balance Ability Poor Dynamic Sitting Balance Ability Poor Comments Other Balance Tests/Deviations/Treatment Pt lost her sitting balance : during P.T. LB MMT. Required mod to max a for sitting balance to complete LB MMT. M8 OT- IP Objective Assessments Start: 10/18/20 16:16 Freq: Status: Active Protocol: Document 10/18/20 16:16 CGR (Rec: 10/18/20 16:36 CGR [id number]) OT Gross Range of Motion Upper Extremity Range of Motion Assessment Left Impaired ROM Impairments L shld 0-80 OT Strength Upper Extremity Strength Shoulder 3-/5 Elbow 4-/5 Hand 4-/5 Comments Strength Comments Pt presents with generalized weakness. OT- Coordination Assessment Upper Extremity Finger to Nose Test Within Functional Limits Finger Tapping Test Within Functional Limits OT Sensation Assessment Edema Edema Absent M9 OT- IP Assessment and Plan Start: 10/18/20 16:16 Freq: Status: Active Protocol: Document 10/18/20 16:16 CGR (Rec: 10/18/20 16:36 CGR [id number]) OT Summary Assessment and Plan Potential Rehabilitation Potential Good Analytic Complexity at Evaluation Moderate Summary OT Impairments Range of Motion,Strength, Balance,Functional Mobility, Grooming,Dressing,Toileting, Bathing,Toilet Transfers, Shower Transfers,Activity Tolerance Progress Towards Goals Slow Progress due to Medical Issues,Slow Progress due to Activity Tolerance Assessment Summary Pt presents as a moderate complexity evalution s/p admit for abdominal pain, generalized weakness and frequent falls. Per nursing, pt has been alcohol free for 5 weeks but continues to become weaker at home. Pt's has a hx of CVA and parkinsons and is limited in his ability to assist. Pt also states new onset of hearing loss and states ~1 month ago she experienced sudden onset hearing loss. Given pt's poor strength and ability to mobilize or care for herself, recommendation is for discharge to SNF. Pt's main barriers include 14 steps to enter her home, a tub shower, and limited assist at home given her husbands health. Goals Grooming Goal Independent Dressing Goal Independent Toileting Goal Independent Bathing Goal Independent Toilet Transfer Goal Independent Shower Transfer Goal Independent Days to Meet Goals 20 Frequency of Treatment Frequency Of Treatment Once a Day Treatment Plan OT Treatment Plan ADL Training,Functional Mobility,Therapeutic Exercises ,Patient/Family Education, Discharge Planning Other Treatment Recommendations and Next ADLs seated, sitting balance Treatment Focus activities, generalized strengthening. Discharge Recommendations OT Discharge Recommendations SNF Rehab Other Discharge Recommendations Given pt's husbands health and 14 steps to enter her home, pt would benefit from SNF. Home Equipment Needs TBD Transportation Needs at Discharge Wheelchair/Cabulance
--- NOTE | 2020-10-18 14:49 | PT.IIE ---
Surgical History (Last Reviewed 10/18/20 @ 08:57 by Lebron Tovar DO) No significant past surgical history Medical History (Last Reviewed 10/18/20 @ 08:57 by Lebron oTvar DO) Alcoholism Allergies Bilateral leg weakness Cirrhosis Depression (~1985) History of chicken pox (~1959) Restless leg syndrome Transaminitis Vitiligo (~2017) Physical Therapy Inpatient Evaluation/Re-Eval M1 PT/OT-IP Prior Functional Status Start: 10/18/20 14:33 Freq: NEEDED Status: Active Protocol: Document 10/18/20 14:33 [facility] (Rec: 10/18/20 14:49 [facility] [id number]) Medical Review Prior Functional Status Medical History Reviewed Yes Communication WNl Mobility and Gait Indep until august. 5 falls since then. Pt has been using walker and has been helping her out of bed and around sometimes. she mostly was walking on her own but recently her legs have been locking up and giving out during mobility. Social History Household Members spouse,children Living Arrangements House Number of Floors (Floors) Two Floors Number of Stairs To Enter/Railing? 14STE w/rail Home Environment Standard Height Toilet,Tub/ Shower Home Equipment Bedside Commode,Grab Bars In Shower Additional Social History Comment Pt has standard walker; Son has CVA history and has Parkinson's M2 PT-IP Current Condition Start: 10/18/20 14:33 Freq: NEEDED Status: Active Protocol: Document 10/18/20 14:33 [facility] (Rec: 10/18/20 14:49 [facility] [id number]) Physical Therapy Current Condition Current Condition Evaluation Date 10/18/20 Treatment Diagnosis abdomenal pain, weakness Precautions Abdominal Surgery Precautions Gait Belt above Incisional Area M3 PT-IP Subjective Start: 10/18/20 14:33 Freq: NEEDED Status: Active Protocol: Document 10/18/20 14:33 [facility] (Rec: 10/18/20 14:49 [facility] [id number]) Subjective Physical Therapy Visit Type Type Initial Evaluation Visit Start Time 14:03 Visit Stop Time 14:28 Total Visit Minutes 25 Notes co-treat w/OT Number of [employer] Visits 0 Physical Therapy Visit Comments Patient Comments Pt agreeable to get up Patient Goals Pt wants to go home M4 PT-IP Mobility and Gait Start: 10/18/20 14:33 Freq: NEEDED Status: Active Protocol: Document 10/18/20 14:33 [facility] (Rec: 10/18/20 14:49 [facility] [id number]) PT-Bed Mobility Assessment Rolling Type of Rolling Log Rolling,Roll to Left Level of Assist Moderate Assistance Supine to Sit Supine to Sit Moderate Assistance Sit to Supine Sit to Supine Moderate Assistance Scooting Scooting to Edge of Bed Contact Guard Assistance PT-Transfer Assessment Sit to and From Stand Sit to and from Stand Moderate Assistance,1 Person Assistance,2 Person Assistance ,Use of Upper Extremities Equipment Transfer Assistive Device Gait Belt,Front Wheeled Walker Orthotic/Prosthetic Devices or Brace: No Transfers Transfer Destination Bed,Bedside Commode Transfer Technique Stand Step Pivot Transfer Ability Level of Assist Moderate Assistance Comments Mobility Comments Pt did supine to sit with max ceuing for log roll technique and mod A. pt scooted to EOB CGA. She sat at EOB SBA and had 1 post LOB w/MMT of hip with active R hip flex. She stood to FWW and stood for about 20 sec 2x w/mod A x2 first time and mod a x1 second time. pt had terouble being able to take steps and sat down each time. 3rd time sit to stand mod A and pt amb to R to sit at EOB with mod A x2 in order to help control pt from losing balance post along w/helping pt keep walker down . Pt asked to use commode so did transfer with Mod A x1 with max cueing for hands throughout. Pt transfered back to bed with mod A x2 to stand from commode then mod A x1 to transfer to bed. MOd A for sit to supine. Pt left with call light in reach. Gait Assessment Gait Gait Assistance Required: Moderate Assistance,2 Person Assist Distance (Feet) 2 Assistive Devices Assistive Device Gait Belt,Front Wheeled Walker Gait Deviations General Gait Pattern Decreased Feet Clearance, Flexed Trunk Factors Limiting Gait Function Factors Limiting Gait Function Decreased Activity Tolerance, Decreased Strength,Poor Balance,Poor Safety Awareness Comments Gait Comments P tdid sidesteps to R w/FWW and mod A x2 Stair Climbing Assessment Comments Stair Climbing Comments unable at htis time PT-Balance Assessment Sitting Balance and Reactions Static Sitting Balance Ability Fair Dynamic Sitting Balance Ability Poor Standing Balance and Reactions Static Standing Balance Ability Poor Dynamic Standing Balance Ability Poor Device Used FWW M5 PT-IP Objective Assessments Start: 10/18/20 14:33 Freq: NEEDED Status: Active Protocol: Document 10/18/20 14:33 [facility] (Rec: 10/18/20 14:49 [facility] [id number]) Orientation Orientation/Cognition Level of Alertness Alert Safety Awareness Decreased Safety Awareness Gross Range of Motion Upper Extremity ROM Assessment Bilaterally Impaired Lower Extremity ROM Assessment Bilaterally Impaired Impairments dec R DF noted during MMT Strength Lower Extremity Strength Assessment Bilaterally Impaired Hip 3/5 Knee 3+/5 Ankle 3+/5 Sensation Assessment Comments Sensation Comments slight dec sensation to b feet Muscle Tone Muscle Tone WNL No M6 PT-IP Treatment Start: 10/18/20 14:33 Freq: NEEDED Status: Active Protocol: Document 10/18/20 14:33 [facility] (Rec: 10/18/20 14:49 [facility] [id number]) Physical Therapy Treatment Education Education Provided Safety Other Treatments Other Treatment Performed discussion w/ pt re: rehab possibly being needed to return to typical level of funciton M7 PT-IP Assessment and Plan Start: 10/18/20 14:33 Freq: NEEDED Status: Active Protocol: Document 10/18/20 14:33 [facility] (Rec: 10/18/20 14:49 [facility] [id number]) PT Summary Assessment and Plan Potential Rehabilitation Potential Good Status of Condition at Evaluation Evolving Summary Impairments Pain,ROM,Strength,Balance,Bed Mobility,Transfers,Gait, Activity Tolerance Assessment Summary Pt presented to hospital w/ abdomenal pain and progressive weakness. she has been requiring assistance to get around since Nov and recently she has been too weak to get around even with her 's help. She has had 5 falls in the past couple months and has been limited with her activity d/t her weakness. she has 14 steps to get into the home and both son and spouse have other comorbitities that prevent them from being able to give significant assist safely. At this point, due to her progressive weakness over the past couple of months that now requires 1-2 person assistance, pt woauld benefit from SNF rehab in order to get stronger prior to returning home in order to dec her risk for falls and help improve her independence w/mobility. Goals Bed Mobility Goal Standby Assistance Transfer Goal Standby Assistance Gait Goal Standby Assistance Gait Distance 150 Other Goals up/down 14 stairs with rail Days to Meet Goals 8 Frequency of Treatment Frequency Of Treatment Once a Day Treatment Plan Physical Therapy Treatment Plan Bed Mobility Training,Transfer Training,Gait Training, Therapeutic Exercise,Balance Retraining,Discharge Planning, Neuromuscular Re-ed Recommendations To Nursing Amount of Assist Needed 1 Person Assist Discharge Recommendations PT Discharge Recommendations SNF Rehab Transportation Needs at Discharge Private Vehicle,Wheelchair/ Cabulance
[2020-10-18] MEDS: SPIRONOLACTONE 25 MG TABLET 50 MG PO (17:13)
[2020-10-18] MEDS: SODIUM CHLORIDE 0.9% FLUSH 10 ML IV (20:13)
[2020-10-19] VITALS (10 sets, daily range): BP systolic 106–119; BP diastolic 55–71; PULSE 75–84; RESP 16–18; TEMP 36.4–37.1; O2SAT 94–98
[2020-10-19] MEDS: MELATONIN 3 MG TABLET 6 MG PO ×2 (01:17→19:51)
[2020-10-19 05:25] LABS: BUN Creatinine Ratio 18.2 (6-22); Blood Urea Nitrogen 22 mg/dL (7-17); Calcium 8.3 mg/dL (8.4-10.2); Carbon Dioxide 24 mmol/L (22-32); Chloride 103 mmol/L (98-107); Estimated Glomerular Filt Rate 44.5 mL/min (>60); Glucose 80 mg/dL (80-110); HEMOLYSIS < 15 (0-50); Sodium 129 mmol/L (137-145)
[2020-10-19 05:30] LABS: Add Manual Diff / Slide Review NO; Basophils Absolute Auto 100 /uL (0-100); Basophils Percent Auto 0.6 % (0-2); Eosinophils Absolute Auto 200 /uL (0-450); Eosinophils Percent Auto 2.4 % (2-4); Hematocrit 26.6 % (36-46); Hemoglobin 9.2 g/dL (12.0-16.0); Lymphocytes Absolute Auto 1300 /uL (1100-4500); Lymphocytes Percent Auto 13.2 % (25-40); Mean Corpuscular HGB Conc 34.8 % (30-36); Mean Corpuscular Hemoglobin 34.2 PG (26-34); Mean Corpuscular Volume 98.2 fL (80-100); Monocytes Absolute Auto 900 /uL (0-900); Monocytes Percent Auto 9.5 % (3-14); Neutrophils Absolute Auto 7100 /uL (1500-7000); Neutrophils Percent Auto 74.3 % (50-75); Platelet Count 163 X10^3/uL (150-400); Red Cell Distribution Width 13.9 % (11.6-14.8); White Blood Cell Count 9.5 X10^3/uL (4.5-11.0)
[2020-10-19 08:35] LABS: Creatine Kinase 1176 U/L (30-135)
[2020-10-19] MEDS: MULTIVITAMIN 1 TABLET 1 TAB PO (08:39)
[2020-10-19] MEDS: FUROSEMIDE 40 MG TABLET PO (08:39)
[2020-10-19] MEDS: SERTRALINE 50 MG TABLET PO (08:39)
[2020-10-19] MEDS: SPIRONOLACTONE 25 MG TABLET 50 MG PO ×2 (08:39→18:05)
[2020-10-19] MEDS: THIAMINE 100 MG TABLET PO (08:39)
[2020-10-19] MEDS: FOLIC ACID 1 MG TABLET PO (08:39)
[2020-10-19 08:45] LABS: HEMOLYSIS < 15 (0-50); Iron 46 ug/dL (37-170)
[2020-10-19 08:55] LABS: Percent Iron Saturation 32 % (15-50); Total Iron Binding Capacity 146 ug/dL (265-497)
[2020-10-19 08:56] LABS: Transferrin < 80 mg/dL (206-381)
[2020-10-19] MEDS: ENOXAPARIN 40 MG/0.4 ML SYRINGE SUBCUT (09:00)
--- NOTE | 2020-10-19 10:38 | P.PN_ITS ---
Subjective Subjective Date Patient Seen: 10/19/20 Interval history: Patient is a 65-year-old female with ETOH cirrhosis, portal hypertension and moderate ascites presenting with progressive weakness. Patient ruled out for SBP with diagnostic paracentesis. She has significant anemia likely of chronic disease and volume overload due to liver disease with hemoglobin trending down. Iron studies are normal. She denies melena or bright red blood. PT is recommending shelter rehab. Exam Vital Signs (past 8 hours): - 10/19/20 03:00 10/19/20 04:00 10/19/20 07:00 Temperature 97.5 F L 98.7 F Pulse Rate 80 82 Respiratory Rate 16 18 Blood Pressure 106/55 L 112/57 L Pulse Oximetry 95 95 96 10/19/20 08:00 Temperature Pulse Rate Respiratory Rate Blood Pressure Pulse Oximetry 96 Oxygen Delivery Method Room Air Oxygen Flow Rate 0 Narrative Exam Narrative: General: Alert and cooperative female in no acute distress Lungs: Clear to auscultation Heart: Regular rhythm Abdomen: Moderate ascites but soft and nontender Extremities: Trace to 1+ pitting in lower legs Neurological: Affect normal, sensorium intact, no asterixis, nonfocal weakness Skin: Scattered bruising present since admission Objective Labs Result Diagrams: 10/19/20 04:50 10/19/20 04:50 Labs: Laboratory Results - last 24 hr 10/18/20 10/18/20 10/18/20 09:50 09:50 10:01 WBC RBC Hgb Hct MCV MCH MCHC RDW Plt Count Neut % (Auto) Lymph % (Auto) [place] % (Auto) Eos % (Auto) Baso % (Auto) Neut # (Auto) Lymph # (Auto) [place] # (Auto) Eos # (Auto) Baso # (Auto) Sodium Potassium Chloride Carbon Dioxide BUN Creatinine Estimated GFR BUN/Creatinine Ratio Glucose Calcium Iron TIBC % Saturation Transferrin Total Bilirubin 3.0 H Conjugated Bilirubin 0.1 Unconjugated Bilirubin 1.2 H AST 306 H ALT 155 H Alkaline Phosphatase 188 H Total Creatine Kinase 1209 H Total Protein 6.3 Albumin 2.8 L Globulin 3.5 Albumin/Globulin Ratio 0.8 L Urine RBC None seen Urine WBC None seen Urine Bacteria None seen Ur Culture Indicated? Cult not indicated Micro UA Comment Microscopic normal Fluid Color Fluid Appearance Fluid RBC Fld Tot Nucleated Cell Fluid Polynuclear WBCs Fluid Mononuclear WBCs Fluid Eosinophils Fluid Other Cells Body Fluid Clot Fluid Total Protein Fluid Albumin 10/18/20 10/19/20 10/19/20 11:15 04:50 04:50 WBC 9.5 RBC 2.70 L Hgb 9.2 L Hct 26.6 L MCV 98.2 MCH 34.2 H MCHC 34.8 RDW 13.9 Plt Count 163 Neut % (Auto) 74.3 Lymph % (Auto) 13.2 L [place] % (Auto) 9.5 Eos % (Auto) 2.4 Baso % (Auto) 0.6 Neut # (Auto) 7100 H Lymph # (Auto) 1300 [place] # (Auto) 900 Eos # (Auto) 200 Baso # (Auto) 100 Sodium 129 L Potassium 4.0 Chloride 103 Carbon Dioxide 24 BUN 22 H Creatinine 1.21 H Estimated GFR 44.5 L BUN/Creatinine Ratio 18.2 Glucose 80 Calcium 8.3 L Iron TIBC % Saturation Transferrin Total Bilirubin Conjugated Bilirubin Unconjugated Bilirubin AST ALT Alkaline Phosphatase Total Creatine Kinase Total Protein Albumin Globulin Albumin/Globulin Ratio Urine RBC Urine WBC Urine Bacteria Ur Culture Indicated? Micro UA Comment Fluid Color Yellow Fluid Appearance Cloudy Fluid RBC 161 Fld Tot Nucleated Cell 94 Fluid Polynuclear WBCs 64 Fluid Mononuclear WBCs 12 Fluid Eosinophils 10 Fluid Other Cells 14 Body Fluid Clot No clots present Fluid Total Protein < 2.0 Fluid Albumin < 1.0 10/19/20 10/19/20 04:50 04:50 WBC RBC Hgb Hct MCV MCH MCHC RDW Plt Count Neut % (Auto) Lymph % (Auto) [place] % (Auto) Eos % (Auto) Baso % (Auto) Neut # (Auto) Lymph # (Auto) [place] # (Auto) Eos # (Auto) Baso # (Auto) Sodium Potassium Chloride Carbon Dioxide BUN Creatinine Estimated GFR BUN/Creatinine Ratio Glucose Calcium Iron 46 TIBC 146 L % Saturation 32 Transferrin < 80 L Total Bilirubin Conjugated Bilirubin Unconjugated Bilirubin AST ALT Alkaline Phosphatase Total Creatine Kinase 1176 H Total Protein Albumin Globulin Albumin/Globulin Ratio Urine RBC Urine WBC Urine Bacteria Ur Culture Indicated? Micro UA Comment Fluid Color Fluid Appearance Fluid RBC Fld Tot Nucleated Cell Fluid Polynuclear WBCs Fluid Mononuclear WBCs Fluid Eosinophils Fluid Other Cells Body Fluid Clot Fluid Total Protein Fluid Albumin PFS Medical History Alcoholism Allergies Bilateral leg weakness Cirrhosis Depression (~1985) History of chicken pox (~1959) Restless leg syndrome Transaminitis Vitiligo (~2018) Surgical History No significant past surgical history Social History marital status: household members: spouse and children pets and animals: No education level: high school occupational status: employed current occupational exposures/hazards: Yes ([employer]) travel history: other leisure activities: reading and other other: Walking seatbelt use: always working smoke detector in home: Yes fire extinguisher in home: Yes carbon monox detector in home: Yes firearms in home: No do you feel safe at home: Yes Smoking Status: Former smoker alcohol intake: former during the past year weight has: decreased > 10 lbs well-balanced diet: daily or most days daily servings fruits/ve-4 caffeine: Yes (Rare) eating out: 1-3 times/week Type(s) of exercise: walking and bicycling frequency: daily duration: 15-30 minutes/day Assessment & Plan Assessment & Plan narrative: Patient is a 65-year-old female with ETOH cirrhosis, portal hypertension and moderate ascites presenting with progressive weakness and recurrent falls. 1. Progressive weakness, acute to subacute, present on admission -likely secondary to decompensated cirrhosis and affects of chronic alcoholism -infectious causes ruled out -initial WBC 11.4, repeat 9.5, procalcitonin 0.33 -provided nutritional support with IV banana bag x1, daily MVI, folate and thiamine -OT and PT consult 2. ETOH cirrhosis with portal hypertension and moderate ascites, with possible decompensation, present on admission -has moderate ascites but abdomen is soft and nontender on exam -SBP was ruled out with diagnostic paracentesis -CT abdomen/pelvis with contrast: Liver cirrhosis with moderate to large amount of ascites, fatty infiltration of right hepatic lobe -last ETOH drink 5 weeks [employer]NAGER -started spironolactone 50 mg b.i.d. and furosemide 40 mg p.o. q.d. -consider outpatient large volume U/S guided paracentesis if patient not responding to diuretic therapy -check hepatitis-B and C serologies 3. Hyponatremia, chronic, present on admission -serum sodium 128, repeat 129 stable, previous serum sodium 133 on 09/27 and 128 on 09/25 -likely related to fluid retention secondary to cirrhosis -monitor electrolytes on diuretic therapy 5. Likely moderate CKD -creatinine 1.23, estimated GFR 43.7; previous creatinine 1.67 -repeat creatinine 1.21, EGFR 44.5 6. Chronic depression -affect normal, continue patient's sertraline 50 mg q.d. DVT prophylaxis: Lovenox 30 mg subQ daily Surrogate decisionmaker: Patient was admitted to hospital observation for workup of weakness and ascites. She remains moderate assistance with history of falls at home and PT recommending shelter rehab and discharge planners are looking into insurance coverage.
--- NOTE | 2020-10-19 11:24 | PT-IP ANOTE ---
Attempted to treat patient at 1120, pt had just attempted to stand and get to shower with nursing with poor results, pt reporting she is now too fatigued to attempt anything right now, will try again after lunch.
--- NOTE | 2020-10-19 11:26 | PC.NURSE ---
Pt planning to shower-prepped Pt and covered IV. Pt attempted to ambulate with fww and 1/p/a but was unable to walk any farther than to the bathroom door before she became too weak to continue. Chair was moved under Pt to support her and then 2 person assist to pivot transfer into bed. Pt now resting in bed with Spouse at the bedside and denies needs at this time. Bed alarm on for safety. PT in to see Pt and Pt declined working with Physical Therapy because she stated she did not feel strong enough.
--- NOTE | 2020-10-19 13:15 | PT.IPTN ---
Physical Therapy Treatment Note M2 PT-IP Current Condition Start: 10/18/20 14:33 Freq: NEEDED Status: Active Protocol: Document 10/19/20 13:38 [facility] (Rec: 10/19/20 14:00 [facility] [id number]) Physical Therapy Current Condition Current Condition Evaluation Date 10/18/20 Treatment Diagnosis abdomenal pain, weakness Precautions Abdominal Surgery Precautions Gait Belt above Incisional Area M3 PT-IP Subjective Start: 10/18/20 14:33 Freq: NEEDED Status: Active Protocol: Document 10/19/20 13:38 [facility] (Rec: 10/19/20 14:00 [facility] [id number]) Subjective Physical Therapy Visit Type Type Treatment Note Visit Start Time 12:46 Visit Stop Time 13:15 Total Visit Minutes 29 Number of [employer]GAN [employer] Visits 1 Physical Therapy Visit Comments Patient Comments Pt and talking with renal case manager upon arrival. Pt verbalizes understanding the importance of working with therapy today. M4 PT-IP Mobility and Gait Start: 10/18/20 14:33 Freq: NEEDED Status: Active Protocol: Document 10/19/20 13:38 [facility] (Rec: 10/19/20 14:00 [facility] [id number]) PT-Bed Mobility Assessment Rolling Type of Rolling Log Rolling,Bilateral Level of Assist Minimal Assistance,1 Person Assistance Supine to Sit Supine to Sit Moderate Assistance,1 Person Assistance Sit to Supine Sit to Supine Maximum Assistance,1 Person Assistance Scooting Scooting to Edge of Bed Contact Guard Assistance Scooting Up and Down in Bed Maximum Assistance PT-Balance Assessment Sitting Balance and Reactions Static Sitting Balance Ability Fair Dynamic Sitting Balance Ability Poor M5 PT-IP Objective Assessments Start: 10/18/20 14:33 Freq: NEEDED Status: Active Protocol: Document 10/18/20 14:33 [facility] (Rec: 10/18/20 14:49 [facility] [id number]) Orientation Orientation/Cognition Level of Alertness Alert Safety Awareness Decreased Safety Awareness Gross Range of Motion Upper Extremity ROM Assessment Bilaterally Impaired Lower Extremity ROM Assessment Bilaterally Impaired Impairments dec R DF noted during MMT Strength Lower Extremity Strength Assessment Bilaterally Impaired Hip 3/5 Knee 3+/5 Ankle 3+/5 Sensation Assessment Comments Sensation Comments slight dec sensation to b feet Muscle Tone Muscle Tone WNL No M6 PT-IP Treatment Start: 10/18/20 14:33 Freq: NEEDED Status: Active Protocol: Document 10/19/20 13:38 [facility] (Rec: 10/19/20 14:00 [facility] [id number]) Physical Therapy Treatment Exercises Exercises Ankle Pumps,Quad Sets,Heel Slides,Straight Leg Raises, Seated Knee Flexion/Extension Education Education Provided Safety Other Treatments Other Treatment Performed Pt log rolled R, supine>sit ModAx1. Pt able to scoot to EOB CGA. Worked on heel raises and LAQ seated EOB, pt needing bouts of Mod A due to retropulsion. Cued pt to flex forward from hips to stay balanced. Pt returned to sit> supine with Max Ax1. Once supine, MaxA x2 with caregiver () assisting and trendelenburg postion to scoot pt toward HOB. While supine, pt performed ankle pumps, heel slides, and SLR needing Min A for SLR on LLE. Taught pt to use belt to assist with heel slides and SLR if needed. Provided printed HEP of ankle pumps, heel slides, SLR bilaterally. M7 PT-IP Assessment and Plan Start: 10/18/20 14:33 Freq: NEEDED Status: Active Protocol: Document 10/19/20 13:38 [facility] (Rec: 10/19/20 14:00 [facility] [id number]) PT Summary Assessment and Plan Potential Rehabilitation Potential Good Status of Condition at Evaluation Evolving Summary Impairments Pain,ROM,Strength,Balance,Bed Mobility,Transfers,Gait, Activity Tolerance Assessment Summary Pt was not willing to work with therapy this morning, but after talking with renal case manager with [employer] in room after lunch, pt understands the importance of working with therapy. At this time, pt's insurance is unwilling to pay for stay in SNF. Pt willing to do exercises in bed and seated EOB, but is unwilling to get out of bed at this time . During seated exercises, pt extremely retropulsive, needing moderate assist and constant verbal cues to flex forward from waistline to hold herself upright. Pt is able to hold herself up for periods of ~1 minute with therapist hands hovering off shds to assist before leaning backwards again. Performed ankle pumps, heel slides, and SLR with min A on LLE. Provided pt with print out and showed pt how to use belt to assist LLE as needed. Pt still needs heavy assistance ranging from mod-max A during most bed mobility and transfers. Goals Bed Mobility Goal Standby Assistance Transfer Goal Standby Assistance Gait Goal Standby Assistance Gait Distance 150 Other Goals up/down 14 stairs with rail Days to Meet Goals 8 Frequency of Treatment Frequency Of Treatment Once a Day Treatment Plan Physical Therapy Treatment Plan Bed Mobility Training,Transfer Training,Gait Training, Therapeutic Exercise,Balance Retraining,Discharge Planning, Neuromuscular Re-ed Other Recommendations and Next Treatment Work on supine exercises, EOB Focus exercises, and motivate pt to ambulate in room. Recommendations To Nursing Amount of Assist Needed 1 Person Assist Discharge Recommendations PT Discharge Recommendations SNF Rehab Transportation Needs at Discharge Private Vehicle,Wheelchair/ Cabulance
--- NOTE | 2020-10-19 13:24 | OT.IP.TRT ---
Occupational Therapy Treatment Note M2 OT-IP Current Condition Start: 10/18/20 16:16 Freq: Status: Active Protocol: Document 10/18/20 16:16 [facility] (Rec: 10/18/20 16:36 [facility] [id number]) Occupational Therapy Current Condition Current Condition Evaluation Date 10/18/20 Treatment Diagnosis abdominal pain, generalized weakness, frequent falls Diagnosis Onset Date 10/18/20 M3 OT- IP Subjective and Pain Start: 10/18/20 16:16 Freq: Status: Active Protocol: Document 10/19/20 14:35 [facility] (Rec: 10/19/20 14:36 R [id number]) OT- Subjective Occupational Therapy Visit Type Type Administrative Note Notes Attempted to see pt for OT services. Pt states fatigue and about to begin bed bath at this time. Will hold and continue to follow.
--- NOTE | 2020-10-19 13:57 | CM.DANOTE ---
Patient is a 65 year old female who was admitted on 10/18/20 for Abd Pain. Pt has MCR and TANVIR Spenddown and her PCP is Dr. Bib Toro. EMR was reviewed. Per MD, pt admitted for severe weakness, somewhat unknown etiology. Pt has hx of significant ETOH but sober for about 5 weeks. Per PT/OT, recommending SNF prior to safe d/c home as pt requiring 2PA for mobility, transfers, and still very weak and fatigues easily. SW met bedside with pt and spouse and explained role and SEED CLEANING MACHINE OPERATOR arrived to begin second PT session for today and SW discussed current SNF recommendation and pt's OBS Status and lack of MCR coverage for SNF at this time. Pt and spouse confirm that the 14 stairs to enter are a barrier as well as ability to safely utilize the bathroom currently with just assist (he has hx of CVA and Parkinson's dx). SW provided the SNF Choice List to review and discussed the average daily private pay cost of SNF as well as provided the Senior Resource Guidebook and earmarked PP CG agency page. Pt and spouse say they are willing to consider their options and feel somewhat overwhelmed by all the information. Pt to work further with PT and pt and spouse considering possible d/c options and SW will return to discuss further after SEED CLEANING MACHINE OPERATOR completes afternoon session. Plan: SW to follow closely after PT works with pt to determine a safe d/c plan and coordination. NOAH Stephens Discharge Planning/Care Management CM Discharge Assessment Start: 10/19/20 13:53 Freq: Status: Active Protocol: Document 10/19/20 13:53 BF (Rec: 10/19/20 13:57 BF [id number]) Discharge Planning Assessment Assigned Director Of Group Counseling Program NOAH Vargas Advance Directives? No Advance Directives on File No History Provided By Patient,Family Member,Medical Record Has Patient been admitted in last 30 Yes days? Prior Living Arrangements House Household Members spouse,children Type of transporation used prior to Relies on Others admit Independent with ADL's No Is patient alert and oriented? Yes Needs Assistance With Bathing,Meal Prep,Managing Medications,Home Chores / Shopping Caregiver for Another No Comment Made [facility] referral back in 09/26/20 at beginning of month but doesnt seem pt is open to service Patient/Family Preference [facility] Facility Barriers to Discharge Yes Comment Currently OBS Status Discharge Plan [facility] Facility Transportation Arrangement spouse bedside but if SNF then facility van transport Additional Comment Waiting for further discussion with pt/spouse regarding private pay Medicare Choice List Provided Yes Whiteboard Updated in Patient Room with Yes name and ext. # of Director Of Group Counseling Program Review Status In Process Please Provide Date Initial DC 10/19/20 Assessment Was Performed Next Review Type Continued Stay Review
[2020-10-19] MEDS: ACETAMINOPHEN 325 MG TABLET 650 MG PO (18:05)
[2020-10-19] MEDS: MAGNESIUM OXIDE 400 MG TABLET PO (21:17)
[2020-10-20] VITALS (8 sets, daily range): BP systolic 99–138; BP diastolic 50–71; PULSE 81–86; RESP 13–18; TEMP 36.3–37.2; O2SAT 94–100
[2020-10-20 04:09] LABS: HBsAg Screen Negative (Negative); Hepatitis A Antibody IgM Negative (Negative); Hepatitis B Core Antibody IgM Negative (Negative); Hepatitis B Surf Ab Qualitativ Non Reactive (.); Hepatitis C Antibody 0.1 s/co ratio (0.0-0.9)
[2020-10-20 05:12] LABS: Add Manual Diff / Slide Review NO; Basophils Absolute Auto 100 /uL (0-100); Eosinophils Absolute Auto 300 /uL (0-450); Eosinophils Percent Auto 2.8 % (2-4); Hematocrit 27.3 % (36-46); Hemoglobin 9.4 g/dL (12.0-16.0); Lymphocytes Absolute Auto 2000 /uL (1100-4500); Lymphocytes Percent Auto 21.2 % (25-40); Mean Corpuscular HGB Conc 34.4 % (30-36); Mean Corpuscular Hemoglobin 33.8 PG (26-34); Mean Corpuscular Volume 98.3 fL (80-100); Monocytes Absolute Auto 1000 /uL (0-900); Monocytes Percent Auto 10.1 % (3-14); Neutrophils Absolute Auto 6200 /uL (1500-7000); Neutrophils Percent Auto 64.9 % (50-75); Platelet Count 164 X10^3/uL (150-400); Red Blood Cell Count 2.78 X10^6/uL (4.0-5.2); Red Cell Distribution Width 14.1 % (11.6-14.8); White Blood Cell Count 9.5 X10^3/uL (4.5-11.0)
--- NOTE | 2020-10-20 05:14 | PC.NURSE ---
pt has been calling about every hour to use the bed silver and is only urinating about 50cc or less each time, nursing aid bladder scanned pt at 0500 and pt only has about 100cc urine in bladder. Pt's urine was negative for bacteria on 10/18.
[2020-10-20 05:16] LABS: BUN Creatinine Ratio 17.1 (6-22); Blood Urea Nitrogen 22 mg/dL (7-17); Calcium 8.5 mg/dL (8.4-10.2); Carbon Dioxide 27 mmol/L (22-32); Chloride 102 mmol/L (98-107); Estimated Glomerular Filt Rate 41.3 mL/min (>60); Glucose 87 mg/dL (80-110); HEMOLYSIS < 15 (0-50); Potassium 3.8 mmol/L (3.4-5.1); Sodium 130 mmol/L (137-145)
[2020-10-20] MEDS: ENOXAPARIN 40 MG/0.4 ML SYRINGE SUBCUT (08:08)
[2020-10-20] MEDS: MULTIVITAMIN 1 TABLET 1 TAB PO (08:09)
[2020-10-20] MEDS: SERTRALINE 50 MG TABLET PO (08:09)
[2020-10-20] MEDS: FOLIC ACID 1 MG TABLET PO (08:09)
[2020-10-20] MEDS: THIAMINE 100 MG TABLET PO (08:09)
[2020-10-20] MEDS: FUROSEMIDE 40 MG TABLET PO (08:09)
[2020-10-20] MEDS: SPIRONOLACTONE 25 MG TABLET 50 MG PO ×2 (08:10→17:25)
--- NOTE | 2020-10-20 09:31 | PT.IPTN ---
Physical Therapy Treatment Note M2 PT-IP Current Condition Start: 10/18/20 14:33 Freq: NEEDED Status: Active Protocol: Document 10/19/20 13:38 MA (Rec: 10/19/20 14:00 MA [id number]) Physical Therapy Current Condition Current Condition Evaluation Date 10/18/20 Treatment Diagnosis abdomenal pain, weakness Precautions Abdominal Surgery Precautions Gait Belt above Incisional Area M3 PT-IP Subjective Start: 10/18/20 14:33 Freq: NEEDED Status: Active Protocol: Document 10/20/20 09:07 CLB (Rec: 10/20/20 10:28 CLB [id number]) Subjective Physical Therapy Visit Type Type Treatment Note Visit Start Time 09:07 Visit Stop Time 09:37 Total Visit Minutes 24 Notes present Number of VICE PRESIDENT SALES Visits 2 Physical Therapy Visit Comments Patient Comments Pt states she is feeling better today but still very weak. Pt states her son is unable to help her at home and is limited due to medical issues. M4 PT-IP Mobility and Gait Start: 10/18/20 14:33 Freq: NEEDED Status: Active Protocol: Document 10/20/20 09:07 CLB (Rec: 10/20/20 10:28 CLB [id number]) PT-Transfer Assessment Sit to and From Stand Sit to and from Stand Maximum Assistance,1 Person Assistance,Use of Upper Extremities Equipment Transfer Assistive Device Gait Belt,Front Wheeled Walker Orthotic/Prosthetic Devices or Brace: No Transfers Transfer Destination Chair Comments Mobility Comments Pt in chair upon arrival, pt able to scoot forward in chair SBA and then required Max A x1 to stand x3, pt required cues for hand placement while sitting down to controll descent. While in standing pt was only able to stand ~15 seconds before needing to sit down due to LE weakness. Pt able to take steps forward with chair follow ~2ft w/FWW/ Min A with short shuffled steps. Pt did not have retropulsion this tx. Pt sat in chair after ambulation and performed QS, AP and seated knee flx/ext. Left pt in chair with present. Spoke to CM about pt progress and that pt would require SNF. Gait Assessment Gait Gait Assistance Required: Moderate Assistance,2 Person Assist Distance (Feet) 2 Assistive Devices Assistive Device Gait Belt,Front Wheeled Walker Gait Deviations General Gait Pattern Decreased Feet Clearance, Flexed Trunk Factors Limiting Gait Function Factors Limiting Gait Function Decreased Activity Tolerance, Decreased Strength,Poor Balance,Poor Safety Awareness Comments Gait Comments Pt able to ambulate ~2ft forward with chair follow requiring Mod A. Stair Climbing Assessment Comments Stair Climbing Comments Pt unable to climb stairs due to BLE weakness and has 14 steps to get into home. PT-Balance Assessment Sitting Balance and Reactions Static Sitting Balance Ability Fair Dynamic Sitting Balance Ability Poor M5 PT-IP Objective Assessments Start: 10/18/20 14:33 Freq: NEEDED Status: Active Protocol: Document 10/18/20 14:33 [facility] (Rec: 10/18/20 14:49 [facility] [id number]) Orientation Orientation/Cognition Level of Alertness Alert Safety Awareness Decreased Safety Awareness Gross Range of Motion Upper Extremity ROM Assessment Bilaterally Impaired Lower Extremity ROM Assessment Bilaterally Impaired Impairments dec R DF noted during MMT Strength Lower Extremity Strength Assessment Bilaterally Impaired Hip 3/5 Knee 3+/5 Ankle 3+/5 Sensation Assessment Comments Sensation Comments slight dec sensation to b feet Muscle Tone Muscle Tone WNL No M6 PT-IP Treatment Start: 10/18/20 14:33 Freq: NEEDED Status: Active Protocol: Document 10/20/20 09:07 CLB (Rec: 10/20/20 10:28 CLB [id number]) Physical Therapy Treatment Exercises Exercises Ankle Pumps,Gluteal Sets, Seated Knee Flexion/Extension Education Education Provided Safety Other Treatments Other Treatment Performed Wt shifting in standing. M7 PT-IP Assessment and Plan Start: 10/18/20 14:33 Freq: NEEDED Status: Active Protocol: Document 10/20/20 09:07 CLB (Rec: 10/20/20 10:28 CLB [id number]) PT Summary Assessment and Plan Potential Rehabilitation Potential Good Status of Condition at Evaluation Evolving Summary Impairments Pain,ROM,Strength,Balance,Bed Mobility,Transfers,Gait, Activity Tolerance Assessment Summary Pt willing to work with therapy performing sit<>stand x3 Max A and ambulated ~2ft with chair follow requiring Mod A. Pt only able to stand for minimal amount of time before feeling shaky and weak . Pt's is unable to assist her at home due to his medical issues and son is unable to assist pt at home. Pt will require SNF rehab to improve strength and activity tolerance. Goals Bed Mobility Goal Standby Assistance Transfer Goal Standby Assistance Gait Goal Standby Assistance Gait Distance 150 Other Goals up/down 14 stairs with rail Days to Meet Goals 8 Frequency of Treatment Frequency Of Treatment Once a Day Treatment Plan Physical Therapy Treatment Plan Bed Mobility Training,Transfer Training,Gait Training, Therapeutic Exercise,Balance Retraining,Discharge Planning, Neuromuscular Re-ed Other Recommendations and Next Treatment bed mobility, sit<>stand, ther Focus ex and gait as able. Recommendations To Nursing Amount of Assist Needed 1 Person Assist Discharge Recommendations PT Discharge Recommendations SNF Rehab Transportation Needs at Discharge Wheelchair/Cabulance
--- NOTE | 2020-10-20 10:25 | P.PN_ITS ---
Subjective Subjective Date Patient Seen: 10/20/20 Interval history: Patient is a 65-year-old female with ETOH cirrhosis, portal hypertension and moderate ascites presenting with progressive weakness and recurrent falls. Patient remains max assist with PT to mobilize out of bed. She is admitted under Hospital observation status complicating medically indicated discharge to [facility]. Exam Vital Signs (past 8 hours): - 10/20/20 04:54 10/20/20 05:19 10/20/20 07:20 Temperature 97.4 F L 97.9 F Pulse Rate 86 81 Respiratory Rate 16 13 Blood Pressure 121/71 111/68 Pulse Oximetry 96 96 97 10/20/20 09:00 Temperature Pulse Rate Respiratory Rate Blood Pressure Pulse Oximetry 97 Oxygen Delivery Method Room Air Oxygen Flow Rate 0 Narrative Exam Narrative: General: Alert and cooperative female sitting in bedside chair and in no acute distress Lungs: Breathing nonlabored Abdomen: Soft, likely moderate ascites present Extremities: Mild pitting in lower legs Neurological: Affect normal, appears well oriented, nonfocal Objective Labs Result Diagrams: 10/20/20 04:45 10/20/20 04:45 Labs: Laboratory Results - last 24 hr 10/19/20 10/19/20 10/20/20 11:05 11:05 04:45 WBC 9.5 RBC 2.78 L Hgb 9.4 L Hct 27.3 L MCV 98.3 MCH 33.8 MCHC 34.4 RDW 14.1 Plt Count 164 Neut % (Auto) 64.9 Lymph % (Auto) 21.2 L Lander % (Auto) 10.1 Eos % (Auto) 2.8 Baso % (Auto) 1.0 Neut # (Auto) 6200 Lymph # (Auto) 2000 Lander # (Auto) 1000 H Eos # (Auto) 300 Baso # (Auto) 100 Sodium Potassium Chloride Carbon Dioxide BUN Creatinine Estimated GFR BUN/Creatinine Ratio Glucose Calcium Hepatitis A IgM Ab Negative Hep Bs Antigen Negative Hep Bs Antibody Non reactive Hep B Core IgM Ab Negative Hepatitis C Antibody 0.1 Hep C Ab Signal/Cutoff Comment 10/20/20 04:45 WBC RBC Hgb Hct MCV MCH MCHC RDW Plt Count Neut % (Auto) Lymph % (Auto) Lander % (Auto) Eos % (Auto) Baso % (Auto) Neut # (Auto) Lymph # (Auto) Lander # (Auto) Eos # (Auto) Baso # (Auto) Sodium 130 L Potassium 3.8 Chloride 102 Carbon Dioxide 27 BUN 22 H Creatinine 1.29 H Estimated GFR 41.3 L BUN/Creatinine Ratio 17.1 Glucose 87 Calcium 8.5 Hepatitis A IgM Ab Hep Bs Antigen Hep Bs Antibody Hep B Core IgM Ab Hepatitis C Antibody Hep C Ab Signal/Cutoff [facility] Medical History Alcoholism Allergies Bilateral leg weakness Cirrhosis Depression (~1985) History of chicken pox (~1959) Restless leg syndrome Transaminitis Vitiligo (~2018) Surgical History No significant past surgical history Social History marital status: household members: spouse and children pets and animals: No education level: high school occupational status: employed current occupational exposures/hazards: Yes ([employer]) travel history: other leisure activities: reading and other other: Walking seatbelt use: always working smoke detector in home: Yes fire extinguisher in home: Yes carbon monox detector in home: Yes firearms in home: No do you feel safe at home: Yes Smoking Status: Former smoker alcohol intake: former during the past year weight has: decreased > 10 lbs well-balanced diet: daily or most days daily servings fruits/ve-4 caffeine: Yes (Rare) eating out: 1-3 times/week Type(s) of exercise: walking and bicycling frequency: daily duration: 15-30 minutes/day Assessment & Plan Assessment & Plan narrative: Patient is a 65-year-old female with ETOH cirrhosis, portal hypertension and moderate ascites presenting with progressive weakness and recurrent falls. 1. Progressive weakness, acute to subacute, present on admission -likely secondary to decompensated cirrhosis and affects of chronic alcoholism -infectious causes ruled out -initial WBC 11.4, repeat 9.5, procalcitonin 0.33 -provided nutritional support with IV banana bag x1, daily MVI, folate and rustam ine -remains moderate assist, continue OT and PT consult -high fall risk with history of recurrent falls at home 2. ETOH cirrhosis with portal hypertension and moderate ascites, with possible decompensation, present on admission -has moderate ascites but abdomen is soft and nontender on exam -SBP was ruled out with diagnostic paracentesis -CT abdomen/pelvis with contrast: Liver cirrhosis with moderate to large amount of ascites, fatty infiltration of right hepatic lobe -last ETOH drink 5 weeks FORM PRESSER -started spironolactone 50 mg b.i.d. and furosemide 40 mg p.o. q.d. -consider outpatient large volume U/S guided paracentesis if patient not responding to diuretic therapy -hep B and hep C serologies are normal -recommend patient establish with hepatology as outpatient 3. Hyponatremia, chronic, present on admission -serum sodium 128, repeat 129-130 stable, previous serum sodium 133 on 09/27 and 128 on 09/25 -likely related to fluid retention secondary to cirrhosis -recheck electrolytes, BUN, creatinine in 1 week 5. Likely moderate CKD -creatinine 1.21-1.29; previous creatinine 1.67 -monitor periodically 6. Chronic depression -affect normal, continue patient's sertraline 50 mg q.d. 7. Acute on chronic anemia, present on admission, active -hemoglobin 11.4 on admit, has drifted down to 9.5, hemoglobin was 12.2 on ER visit 09/25/2020 -no melena or bright red blood, normal ferritin and transferrin saturations, anemia likely secondary to volume overload from cirrhosis -discussed anemia findings with Dr. Bartlett on-call for surgery who confirms there is no indication for urgent upper endoscopy. 8. Mild elevations of creatinine kinase, present on admit, stable -patient has mild CK in 1000 range without evidence of acute rhabdo, this is likely to prolonged immobility and not clinically significant DVT prophylaxis: Lovenox 30 mg subQ daily Surrogate decisionmaker: Patient was admitted to hospital observation for workup of weakness and ascites. She remains moderate assistance with history of falls at home and PT recommending penitentiary rehab and discharge planners are looking into Medicare/Medicaid insurance coverage.
--- NOTE | 2020-10-20 10:49 | CM.DPC ---
DCP Cont: Per MD, pt improving but not quite stable for d/c yet today and MD met bedside with pt and spouse and likely plan of discharge tomorrow 10/21/20 and pt remains OBS Status which is a big barrier to discharge. Per PUBLICATION MANAGER this morning, pt seems to have improved slightly but still fatigues extremely fast and was 1PA for sit to stand and was able to ambulate only 2 feet before rest needed. Per spouse request, SW contacted [facility] and confirmed that their Medicaid Spenddown will not provide any coverage for SNF as the Spenddown is medical coverage only and they would need to have applied and been approved for LTC Medicaid. SW met bedside with pt and spouse and discussed above and supported spouse in calling and leaving a msg for Lali Rodriguez at [facility] and spouse left msg requesting additional assist with determining if he qualifies for in-home CG assist through [place]. SW discussed in depth that likely if he qualifies it can take at least a few days to few weeks to get set up but encouraged them to follow through on this with the [place]. SW discussed in depth again the upfront cost of private pay SNF or Respite stay and they state they do not have the financial means to pay for that. SW strongly encouraged the need to create a plan then for home that could include HH covered by insurance but the need to reach out to people they know or caregiver to assist for a while at home. Pt and spouse agreeable to HH and no HH agency preference but confirm that an POTATO PANCAKE FRIER through would be vital to helping them coordinate services. MELINDA discussed the importance of identifying a friend or family member that could be involved with HH POTAT[employer]KE [employer]ER towards being their chcf point person/coordinator as both pt and spouse admit to having significant difficulty in completing pwk, following through with getting resources in place, etc.. SW provided again the Resource Guidebook and showed them PP CG agency list and strongly encouraged them to either call a few or request a family member to call and get info on cost and how quickly could be set up as back up plan for home. Pt able to identify a few people who could help and unclear if pt and spouse will actually follow through on this at this time. Spouse states he plans to ask their very introverted son to assist more at d/c with hopeful financial compensation eventually through maybe VA or Medicaid if they complete the provided LTC TANVIR application given bedside today. MELINDA made [facility] referral based on Vendor Calendar for HH RN/PT/OT/GALLEY BOY/[employer]CAKE [employer]RIER and called [facility] with referral and update on pt. F2F still needed for likely d/c tomorrow. Plan: SW to follow closely for likely plan of d/c home tomorrow with spouse and son assist and new [facility] referral. Further planning needed to figure out getting pt up the 14 steps to get in the house. Alicia Andrew MSW
--- NOTE | 2020-10-20 16:55 | OT.IPNOTE ---
[facility] She declined participation with therapy stating I've moved a lot already today. Reviewed importance of participation with therapy to promote increased safety at discharge. She continues to decline treatment this date and will plan to follow-up again tomorrow.
--- NOTE | 2020-10-20 18:50 | PM.CHAP ---
Short visit on Wednesday evening. Pt encouraged by her improvement. Spouse, Ed, is very concerned about the next step in Carmela's care. He doesn't think he can handle 24 hr care at home and has financial concerns if d/c to SNF. I have a relationship with the [facility] family and am available if needed to help work through these concerns. Theron Son, [facility] [phone]
[2020-10-20] MEDS: MAGNESIUM OXIDE 400 MG TABLET PO (21:29)
[2020-10-20] MEDS: MELATONIN 3 MG TABLET 6 MG PO (21:29)
[2020-10-21] VITALS (8 sets, daily range): BP systolic 110–117; BP diastolic 61–63; PULSE 74–80; RESP 15–18; TEMP 36.2–36.6; O2SAT 95–100
[2020-10-21] MEDS: SERTRALINE 50 MG TABLET PO (08:33)
[2020-10-21] MEDS: THIAMINE 100 MG TABLET PO (08:33)
[2020-10-21] MEDS: FOLIC ACID 1 MG TABLET PO (08:33)
[2020-10-21] MEDS: FUROSEMIDE 40 MG TABLET PO (08:33)
[2020-10-21] MEDS: MULTIVITAMIN 1 TABLET 1 TAB PO (08:33)
[2020-10-21] MEDS: ENOXAPARIN 40 MG/0.4 ML SYRINGE SUBCUT (08:33)
[2020-10-21] MEDS: SODIUM CHLORIDE 0.9% FLUSH 10 ML IV (08:34)
[2020-10-21] MEDS: SPIRONOLACTONE 25 MG TABLET 50 MG PO (08:35)
--- NOTE | 2020-10-21 10:52 | OT.IP.TRT ---
Occupational Therapy Treatment Note M2 OT-IP Current Condition Start: 10/18/20 16:16 Freq: Status: Active Protocol: Document 10/18/20 16:16 CGR (Rec: 10/18/20 16:36 CGR [id number]) Occupational Therapy Current Condition Current Condition Evaluation Date 10/18/20 Treatment Diagnosis abdominal pain, generalized weakness, frequent falls Diagnosis Onset Date 10/18/20 M3 OT- IP Subjective and Pain Start: 10/18/20 16:16 Freq: Status: Active Protocol: Document 10/21/20 12:29 [facility] (Rec: 10/21/20 12:46 [facility] [id number]) OT- Subjective Occupational Therapy Visit Type Type Treatment Note Visit Start Time 11:34 Visit Stop Time 12:18 Total Visit Minutes 44 Occupational Therapy Visit Comments Patient Comments Pt's present in addition to COMMODITIES MANAGER for caregiver training for pt as being discharge today. Patient/Caregiver Goals TO go home. OT Pain Assessment Pain When Pain Assessed At Rest Pain Present Pain Present Denied Pain M4 OT- IP ADL's Start: 10/18/20 16:16 Freq: Status: Active Protocol: Document 10/21/20 12:29 [facility] (Rec: 10/21/20 12:46 [facility] [id number]) OT [id number] Comments OT Self-Feeding Comments Not meal time OT ADL-Dressing Comments OT Dressing Comments NOt performed. OT ADL-Toileting Comments OT Toileting Comments Pt states to use the BSC at home. OT ADL-Bathing Comments OT Bathing Comments Pt would benefit from a tub bench. M5 OT- IP IADL's Start: 10/18/20 16:16 Freq: Status: Active Protocol: Document 10/18/20 16:16 CGR (Rec: 10/18/20 16:36 R [id number]) OT-Instrumental Activities of Daily Living Deficits IADL Deficits Identified No Deficits Home Safety Awareness Awareness of Need for Assistance at Home Good Awareness Ability to Problem Solve Emergency Able to Problem Solve Situations M6 OT- IP Functional Cognition Start: 10/18/20 16:16 Freq: Status: Active Protocol: Document 10/21/20 12:29 [facility] (Rec: 10/21/20 12:46 [facility] [id number]) Cognitive Factors Limiting Selfcare Function Cognitive Ability Level of Alertness Alert Patient Orientation Name,Age,Birthday,Month,Date, Year,Day of Week,Place, Situation Attention Span Ability Capable of Focused Attention, Capable of Sustained Attention Ability to Follow Commands Able to Follow One Step Commands Safety Awareness Underestimates Need for Assistance Cognitive Comments Cognitive Assessment Comments Pt needing encouragement and safety cues for mobility needs. M7 OT- IP Mobility and Balance Start: 10/18/20 16:16 Freq: Status: Active Protocol: Document 10/21/20 12:29 [facility] (Rec: 10/21/20 12:46 [facility] [id number]) OT- Bed Mobility Assessment Rolling Type of Rolling Roll to Right Level of Assistance Moderate Assistance,1 Person Assistance Supine to Sit Supine to Sit Assist Moderate Assistance,1 Person Assistance Sit to Supine Sit to Supine Assist Moderate Assistance,1 Person Assistance OT-Transfer Assessment Sit to and From Stand Sit to and from Stand Moderate Assistance,Maximum Assistance,1 Person Assistance Transfers Transfer Ability Moderate Assistance,Maximum Assistance,1 Person Assistance Technique Transfer Destination Bed,Wheelchair Transfer Technique Stand Step Pivot Devices Transfer Assistive Devices Gait Belt,Front Wheeled Walker Comments Mobility Comments CAregiver training for pt's and he feels a bit overwhelmed. Pt states son will be at home to assist. Pt needing CGA/SBA form therapist for safety. More hands on assist during stair training. OT- Balance Assessment Sitting Balance and Reactions Static Sitting Balance Ability Good Dynamic Sitting Balance Ability Fair M8 OT- IP Objective Assessments Start: 10/18/20 16:16 Freq: Status: Active Protocol: Document 10/18/20 16:16 CGR (Rec: 10/18/20 16:36 CGR [id number]) OT Gross Range of Motion Upper Extremity Range of Motion Assessment Left Impaired ROM Impairments L shld 0-80 OT Strength Upper Extremity Strength Shoulder 3-/5 Elbow 4-/5 Hand 4-/5 Comments Strength Comments Pt presents with generalized weakness. OT- Coordination Assessment Upper Extremity Finger to Nose Test Within Functional Limits Finger Tapping Test Within Functional Limits OT Sensation Assessment Edema Edema Absent M9 OT- IP Assessment and Plan Start: 10/18/20 16:16 Freq: Status: Active Protocol: Document 10/21/20 12:29 [facility] (Rec: 10/21/20 12:46 [facility] [id number]) OT Summary Assessment and Plan Potential Rehabilitation Potential Good Analytic Complexity at Evaluation Moderate Summary OT Impairments Range of Motion,Strength, Balance,Functional Mobility, Grooming,Dressing,Toileting, Bathing,Toilet Transfers, Shower Transfers,Activity Tolerance Progress Towards Goals Progressing Toward Goals Assessment Summary Pt much improved with mobility needs and has initiated caregiver training for all mobility needs and able to show good understanding and safety and also will have another person to assist at home. Pt would benefit from skilled rehab but not able to financially willing to go and to go home with assist and home health. Goals Grooming Goal Independent Dressing Goal Independent Toileting Goal Independent Bathing Goal Independent Toilet Transfer Goal Independent Shower Transfer Goal Independent Days to Meet Goals 15 Frequency of Treatment Frequency Of Treatment Once a Day Treatment Plan OT Treatment Plan ADL Training,Functional Mobility,Therapeutic Exercises ,Patient/Family Education, Discharge Planning Discharge Recommendations OT Discharge Recommendations Home with 24/ Assist,SNF Rehab Home Equipment Needs tub bench Transportation Needs at Discharge Wheelchair/Cabulance
--- NOTE | 2020-10-21 10:52 | OT.IP.TRT ---
Occupational Therapy Treatment Note M2 OT-IP Current Condition Start: 10/18/20 16:16 Freq: Status: Active Protocol: Document 10/18/20 16:16 [facility] (Rec: 10/18/20 16:36 [facility] [id number]) Occupational Therapy Current Condition Current Condition Evaluation Date 10/18/20 Treatment Diagnosis abdominal pain, generalized weakness, frequent falls Diagnosis Onset Date 10/18/20 M3 OT- IP Subjective and Pain Start: 10/18/20 16:16 Freq: Status: Active Protocol: Document 10/21/20 12:29 [facility] (Rec: 10/21/20 12:46 [facility] [id number]) OT- Subjective Occupational Therapy Visit Type Type Treatment Note Visit Start Time 10:07 Visit Stop Time 10:52 Total Visit Minutes 45 Occupational Therapy Visit Comments Patient Comments Pt's present in addition to SAFETY ENGINEER PRESSURE VESSELS for caregiver training for pt as being discharge today. Patient/Caregiver Goals TO go home. OT Pain Assessment Pain When Pain Assessed At Rest Pain Present Pain Present Denied Pain M4 OT- IP ADL's Start: 10/18/20 16:16 Freq: Status: Active Protocol: Document 10/21/20 12:29 [facility] (Rec: 10/21/20 12:46 [facility] [id number]) OT [id number] Comments OT Self-Feeding Comments Not meal time OT ADL-Dressing Comments OT Dressing Comments NOt performed. OT ADL-Toileting Comments OT Toileting Comments Pt states to use the BSC at home. OT ADL-Bathing Comments OT Bathing Comments Pt would benefit from a tub bench. M5 OT- IP IADL's Start: 10/18/20 16:16 Freq: Status: Active Protocol: Document 10/18/20 16:16 [facility] (Rec: 10/18/20 16:36 R [id number]) OT-Instrumental Activities of Daily Living Deficits IADL Deficits Identified No Deficits Home Safety Awareness Awareness of Need for Assistance at Home Good Awareness Ability to Problem Solve Emergency Able to Problem Solve Situations M6 OT- IP Functional Cognition Start: 10/18/20 16:16 Freq: Status: Active Protocol: Document 10/21/20 12:29 [facility] (Rec: 10/21/20 12:46 [facility] [id number]) Cognitive Factors Limiting Selfcare Function Cognitive Ability Level of Alertness Alert Patient Orientation Name,Age,Birthday,Month,Date, Year,Day of Week,Place, Situation Attention Span Ability Capable of Focused Attention, Capable of Sustained Attention Ability to Follow Commands Able to Follow One Step Commands Safety Awareness Underestimates Need for Assistance Cognitive Comments Cognitive Assessment Comments Pt needing encouragement and safety cues for mobility needs. M7 OT- IP Mobility and Balance Start: 10/18/20 16:16 Freq: Status: Active Protocol: Document 10/21/20 12:29 [facility] (Rec: 10/21/20 12:46 [facility] [id number]) OT- Bed Mobility Assessment Rolling Type of Rolling Roll to Right Level of Assistance Moderate Assistance,1 Person Assistance Supine to Sit Supine to Sit Assist Moderate Assistance,1 Person Assistance Sit to Supine Sit to Supine Assist Moderate Assistance,1 Person Assistance OT-Transfer Assessment Sit to and From Stand Sit to and from Stand Moderate Assistance,Maximum Assistance,1 Person Assistance Transfers Transfer Ability Moderate Assistance,Maximum Assistance,1 Person Assistance Technique Transfer Destination Bed,Wheelchair Transfer Technique Stand Step Pivot Devices Transfer Assistive Devices Gait Belt,Front Wheeled Walker Comments Mobility Comments CAregiver training for pt's and he feels a bit overwhelmed. Pt states son will be at home to assist. Pt needing CGA/SBA from therapist for safety. More hands on assist during stair training. OT- Balance Assessment Sitting Balance and Reactions Static Sitting Balance Ability Good Dynamic Sitting Balance Ability Fair M8 OT- IP Objective Assessments Start: 10/18/20 16:16 Freq: Status: Active Protocol: Document 10/18/20 16:16 [facility] (Rec: 10/18/20 16:36 [facility] [id number]) OT Gross Range of Motion Upper Extremity Range of Motion Assessment Left Impaired ROM Impairments L shld 0-80 OT Strength Upper Extremity Strength Shoulder 3-/5 Elbow 4-/5 Hand 4-/5 Comments Strength Comments Pt presents with generalized weakness. OT- Coordination Assessment Upper Extremity Finger to Nose Test Within Functional Limits Finger Tapping Test Within Functional Limits OT Sensation Assessment Edema Edema Absent M9 OT- IP Assessment and Plan Start: 10/18/20 16:16 Freq: Status: Active Protocol: Document 10/21/20 12:29 [facility] (Rec: 10/21/20 12:46 [facility] [id number]) OT Summary Assessment and Plan Potential Rehabilitation Potential Good Analytic Complexity at Evaluation Moderate Summary OT Impairments Range of Motion,Strength, Balance,Functional Mobility, Grooming,Dressing,Toileting, Bathing,Toilet Transfers, Shower Transfers,Activity Tolerance Progress Towards Goals Progressing Toward Goals Assessment Summary Pt much improved with mobility needs and has initiated caregiver training for all mobility needs and able to show good understanding and safety and also will have another person to assist at home. Pt would benefit from skilled rehab but financially not able to pay for it. Pt would benefit from a BSC and nadir bench at home. Pt looking to go home with with assist and home health. Goals Grooming Goal Independent Dressing Goal Independent Toileting Goal Independent Bathing Goal Independent Toilet Transfer Goal Independent Shower Transfer Goal Independent Days to Meet Goals 15 Frequency of Treatment Frequency Of Treatment Once a Day Treatment Plan OT Treatment Plan ADL Training,Functional Mobility,Therapeutic Exercises ,Patient/Family Education, Discharge Planning Discharge Recommendations OT Discharge Recommendations Home with 17/05 Assist,SNF Rehab Home Equipment Needs tub bench Transportation Needs at Discharge Wheelchair/Cabulance
--- NOTE | 2020-10-21 11:01 | PM.DS.1 ---
History of Present Illness History of Present Illness Date Patient Seen: 10/21/20 Time Patient Seen: 11:02 Chief complaint: Abdminal pain Narrative: As per Dr. Larsen, Patient is a 65-year-old female with history of EtOH cirrhosis, depression who was brought to ER by EMS due to progressive severe weakness. Patient was seen in the ER earlier this month due to weakness. She was noted to have significant ascites and paracentesis was performed. Blood and ascites cultures were negative then. Social work saw patient in ER and arrange for home care and return home. Patient and states that she did well for a while but then has become progressively weak over the past couple of weeks. She has had multiple falls with EMS having to come to the house to assist in getting her up from the floor. She endorses bruising from falling. She denies any pain anywhere. She denies fever, nausea, vomiting, diarrhea, cough, shortness of breath, abdominal pain, black or tardy stools. Her last alcohol drink was 5 weeks ago. She does note progressive swelling of her abdomen and lower extremities which started relatively recently. On ER evaluation, she has stable vitals. WBC is 11.4 with 81.5% neutrophils, hemoglobin 10.6, platelets 211, sodium 128, potassium 3.9, BUN 21, creatinine 1.23, INR 1.2, ferritin 713, total bilirubin 3.1, AST 305, ALT 162, alk-phos 200, ammonia 33, total protein 6.4, albumin 3.0, procalcitonin 0.33. She has normal urinalysis microscopic. Discharge Providers Provider Date of admission: 10/18/20 09:33 Discharge Date: 10/21/20 Primary care physician: Bib Toro MD Consults: 10/18/20 11:39 Consult to Occupational Therapy Evaluate & Treat Comment: Physician Instructions: Evaluate and treat Consult to Physical Therapy Evaluate & Treat Comment: Physician Instructions: Evaluate and Treat Discharge provider: Jono Aviles DO Summary Hospital Course Discharge Diagnosis: Please see hospital course by problem list noted below Hospital Course: Patient is a 65-year-old female with ETOH cirrhosis, portal hypertension and moderate ascites who presented with progressive weakness and LE edema. 1. Progressive weakness, acute to subacute, present on admission -likely secondary to decompensated cirrhosis and affects of chronic alcoholism -infectious causes ruled out with negative paracentesis performed by admitting provider. -patient high fall risk, seen and evaluated by PT, ultimately discharged home with home health and care-public relations account supervisor training. -improved slightly with diuresis, and hope would be increased functionality as she starts diuretic therapy and LE edema improves. 2. ETOH cirrhosis with portal hypertension and moderate ascites, with possible decompensation, present on admission -has moderate ascites but abdomen is soft and nontender on exam. No indication at this time for LVP. 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 and furosemide 40 mg p.o. q.d. -consider outpatient large volume U/S guided paracentesis if patient not responding to diuretic therapy -hep B and hep C serologies are normal -recommend patient establish with hepatology as outpatient 3. Hyponatremia, chronic, present on admission -stable between 128 and 133 during her admission, likely related to EtOH and cirrhosis. -monitor as an outpatient periodically, would repeat in a week or so now after starting on diuretic therapy. 5. Likely moderate CKD, unknown stage -creatinine 1.21-1.29; previous creatinine 1.67. Monitor as above. 6. Chronic depression -affect normal, continued patient's sertraline 50 mg q.d. 7. Acute on chronic anemia, present on admission, active -hemoglobin 11.4 on admit, has drifted down to 9.5, hemoglobin was 12.2 on ER visit 09/25/2020 -no melena or bright red blood, normal ferritin and transferrin saturations, anemia likely secondary to volume overload from cirrhosis -Dr. Larsen discussed anemia findings with Dr. Bartlett on-call for surgery who confirmed there is no indication for urgent upper endoscopy. 8. Mild elevations of creatinine kinase, present on admit, stable -patient has mild CK in 1000 range without evidence of acute rhabdo, this is likely to prolonged immobility and not clinically significant. Dispo: discharged home with Home health, recommend PCP follow up as soon as possible. Exam Vital Signs (past 8 hours): - 10/21/20 03:50 10/21/20 05:00 10/21/20 07:30 Temperature 97.3 F L 97.9 F Pulse Rate 80 80 Respiratory Rate 16 18 Blood Pressure 115/63 110/61 Pulse Oximetry 96 96 97 10/21/20 09:00 Temperature Pulse Rate Respiratory Rate Blood Pressure Pulse Oximetry 95 Oxygen Delivery Method Room Air Oxygen Flow Rate 0 Narrative Exam Narrative: General: Alert and cooperative female sitting in bedside chair and in no acute distress, not on supplemental oxygen. HEENT: NCAT, oral mucosa moist Lungs: Breathing nonlabored, mild bibasilar crackles, L slightly greater than R, no wheezing. CV: RRR, no m/r/g Abdomen: Soft, likely moderate ascites present Extremities: 1+ pitting edema in lower legs bilaterally, non-tender. No erythema, induration, warmth. Neurological: Affect normal, appears well oriented, non gross focal deficits. Objective Labs Result Diagrams: 10/20/20 04:45 10/20/20 04:45 [facility] Medical History Alcoholism Allergies Bilateral leg weakness Cirrhosis Depression (~1985) History of chicken pox (~1958) Restless leg syndrome Transaminitis Vitiligo (~2017) Surgical History No significant past surgical history Social History marital status: household members: spouse and children pets and animals: No education level: high school occupational status: employed current occupational exposures/hazards: Yes ([facility]) travel history: other leisure activities: reading and other other: Walking seatbelt use: always working smoke detector in home: Yes fire extinguisher in home: Yes carbon monox detector in home: Yes firearms in home: No do you feel safe at home: Yes Smoking Status: Former smoker alcohol intake: former during the past year weight has: decreased > 10 lbs well-balanced diet: daily or most days daily servings fruits/ve-4 caffeine: Yes (Rare) eating out: 1-3 times/week Type(s) of exercise: walking and bicycling frequency: daily duration: 15-30 minutes/day Discharge Plan Discharge Plan Patient Disposition: Home Health Service Provider Discharge Comment: You were admitted to the hospital for weakness and abdominal distension. This was due to ascites from your liver. Please continue diuretic therapy, physical therapy with home health. Please follow up with your primary care provider in the next 1-2 weeks for continued therapies. Discharge orders & Medications Prescriptions: New furosemide 40 mg Tablet 40 mg PO DAILY 30 Days Qty: 30 RF: 0 spironolactone 50 mg tablet 50 mg PO 0800,1700 30 Days Qty: 60 RF: 0 Continued sertraline 50 mg tablet 50 mg PO BEDTIME RF: 0 melatonin 5 mg Tablet 5 mg PO BEDTIME PRN (Reason: Sleep) RF: 0 folic acid 1 mg tablet 1 mg PO DAILY Qty: 100 RF: 0 multivitamin Tablet 1 tab PO DAILY Qty: 100 RF: 0 Follow up/Referrals: Bib Toro MD [Primary Care Provider] - Diet/Activity/Treatments Diet: Diet as Tolerated and Low-sodium Activity: As toleraeted Discharge Data Primary Care Provider: Bib Toro Attending Provider: Rickie Muñoz
--- NOTE | 2020-10-21 12:22 | PT.IPTN ---
Physical Therapy Treatment Note M2 PT-IP Current Condition Start: 10/18/20 14:33 Freq: NEEDED Status: Discharge Protocol: Document 10/19/20 13:38 [facility] (Rec: 10/19/20 14:00 [facility] [id number]) Physical Therapy Current Condition Current Condition Evaluation Date 10/18/20 Treatment Diagnosis abdomenal pain, weakness Precautions Abdominal Surgery Precautions Gait Belt above Incisional Area M3 PT-IP Subjective Start: 10/18/20 14:33 Freq: NEEDED Status: Discharge Protocol: Document 10/21/20 10:05 [facility] (Rec: 10/21/20 13:27 [facility] [id number]) Subjective Physical Therapy Visit Type Type Treatment Note Visit Start Time 10:05 Visit Stop Time 12:22 Total Visit Minutes 82 Notes split treatment due to son arriving later in the day for CG training. [id number] with OT co-treat [id number] son present present Number of AIRCRAFT RESTORER Visits 3 Physical Therapy Visit Comments Patient Comments Pt willing to work with therapy. M4 PT-IP Mobility and Gait Start: 10/18/20 14:33 Freq: NEEDED Status: Discharge Protocol: Document 10/21/20 10:05 [facility] (Rec: 10/21/20 13:27 [facility] [id number]) PT-Bed Mobility Assessment Supine to Sit Supine to Sit Moderate Assistance,1 Person Assistance Sit to Supine Sit to Supine Moderate Assistance,1 Person Assistance Scooting Scooting to Edge of Bed Standby Assistance PT-Transfer Assessment Sit to and From Stand Sit to and from Stand Moderate Assistance,Maximum Assistance,1 Person Assistance ,Use of Upper Extremities Equipment Transfer Assistive Device Gait Belt,Front Wheeled Walker Orthotic/Prosthetic Devices or Brace: No Transfers Transfer Destination Bed,Chair,Wheelchair Transfer Technique Stand Step Pivot Transfer Ability Level of Assist Moderate Assistance,Maximum Assistance,1 Person Assistance ,Use of Upper Extremities Comments Mobility Comments Pt able to latosha GB. Pt in chair requiring Mod-Max A with help of due to low surface. Pt used stand step pivot to right side of bed using Mod A with FWW. able to give pt cues for sequencing steps and hand placement. Pt sat on raised bed as bed at home is higher than hospital bed, requiring Mod A and cues for hand placement. Pt able to provide Mod A with cues for sequencing and assist with LE' s onto bed. After a brief rest pt's assisted pt with Mod A supine-sit, once on the EOB pt side scooted to end of bed to similate transfer from bed to BSC at home. Pt then required Mod A from to transfer from raised bed to . Pt rode to stairs for stair training. Pt stood from WC with Mod A and use of stair rails to stand. Pt then required Mod A with standing behind pt and OT up stair from pt providing CGA for safety. Pt climbed three steps using step to step. OT assisted pt Min A with use of rails to turn around at top of steps. Pt then required Mod A provided from and rails descending with LLE and bringing RLE down after. Pt returned to WC Mod A provided by . Pt rode back to room transferring to chair Mod A using stand step pivot. Once AIRCRAFT RESTORER returned to room son present to assist with transfer of pt using Mod A and stand step transfer from [id number] going towards right side. Pt then returned to chair using stand step transfer son providing Mod A. Son and are able to provide Mod A with transfers, bed mobilty and stairs using FWW and with stand step transfer. Stair Climbing Assessment Evaluation Level of Assist On Stairs Moderate Assistance,1 Person Assistance,2 Person Assistance Devices Stair Climbing Assistive Devices Right Railing Technique/Endurance Stair Climbing Direction Ascend and Descend Stair Climbing Technique Step to Step Number of Steps Climbed 3 Stair Climbing Set # Repetitions (reps) 1 Comments Stair Climbing Comments Pt required Mod A for three steps with rail pt has 14 steps at home and recommended find alternative to getting pt in home for safety. Also recommended chair on landing so pt can rest between steps. M5 PT-IP Objective Assessments Start: 10/18/20 14:33 Freq: NEEDED Status: Discharge Protocol: Document 10/18/20 14:33 [facility] (Rec: 10/18/20 14:49 [facility] [id number]) Orientation Orientation/Cognition Level of Alertness Alert Safety Awareness Decreased Safety Awareness Gross Range of Motion Upper Extremity ROM Assessment Bilaterally Impaired Lower Extremity ROM Assessment Bilaterally Impaired Impairments dec R DF noted during MMT Strength Lower Extremity Strength Assessment Bilaterally Impaired Hip 3/5 Knee 3+/5 Ankle 3+/5 Sensation Assessment Comments Sensation Comments slight dec sensation to b feet Muscle Tone Muscle Tone WNL No M6 PT-IP Treatment Start: 10/18/20 14:33 Freq: NEEDED Status: Discharge Protocol: Document 10/20/20 09:07 [facility] (Rec: 10/20/20 10:28 [facility] [id number]) Physical Therapy Treatment Exercises Exercises Ankle Pumps,Gluteal Sets, Seated Knee Flexion/Extension Education Education Provided Safety Other Treatments Other Treatment Performed Wt shifting in standing. M7 PT-IP Assessment and Plan Start: 10/18/20 14:33 Freq: NEEDED Status: Discharge Protocol: Document 10/21/20 10:05 [facility] (Rec: 10/21/20 13:27 [facility] [id number]) PT Summary Assessment and Plan Summary Impairments Pain,ROM,Strength,Balance,Bed Mobility,Transfers,Gait, Activity Tolerance Progress Towards Goals Slow Progress due to Activity Tolerance Assessment Summary Pt continues to require Mod A for all transfers and is unable to ambulate and is only performing stand step transfers. Pt's and son are able to assist pt with Mod A for transfers with and w/o AD. Pt's states he has Parkinsons and a bad back and son is only able to assist with pt intermitantly during the day as he works. Pt would benefit from SNF rehab to gain strength for functional mobility before returning home but states he is unable to pay for SNF. If pt discharges home pt will benefit from services . Goals Bed Mobility Goal Standby Assistance Transfer Goal Standby Assistance Gait Goal Standby Assistance Gait Distance 150 Other Goals up/down 14 stairs with rail Days to Meet Goals 8 Frequency of Treatment Frequency Of Treatment Once a Day Treatment Plan Physical Therapy Treatment Plan Bed Mobility Training,Transfer Training,Gait Training, Therapeutic Exercise,Balance Retraining,Discharge Planning, Neuromuscular Re-ed Recommendations To Nursing Amount of Assist Needed 1 Person Assist Discharge Recommendations PT Discharge Recommendations Home with Assistance,Home Health,SNF Rehab Transportation Needs at Discharge Wheelchair/Cabulance
--- NOTE | 2020-10-21 12:37 | PC.NURSE ---
Addendum entered by Fernanda Gates R.N. 10/21/20 13:24: discharge to home with son and spouse at this time Original Note: PREPARED FOR DISCHARGE- SPOUSE AT BEDSIDE IS SON, MAXWELL, WHO ASSISTED IN CARE-PAYROLL TECHNICIAN TRAINING - IV REMOVED AND WILL ALLOW PT TO FINISH LUNCH PRIOR TO GETTING HER DRESSED AND READIED FOR HOME
--- NOTE | 2020-10-21 15:56 | CM.DPC ---
DCP/continued: Reviewed chart. Spoke with provider in AM rounds he reports patient medically stable for discharge. Orders obtained for home health. TUNNEL MUCKER met with patient, spouse, and son/Mateus re: d/c planning. Spouse reports that he is unsure of his ability to care for patient at home? Son/Mateus at [employer] for caregiver crew trainer with spouse. Spouse aware that patient is OBS status and does not currently qualify for SNF. Therapy to work with family today and HH to be arranged through [facility]. Orders obtained and F2F signed and faxed to [facility]. CALVIN/Michelle reports that referral accepted. In addition, to the above spoke with patient's friend/Columba with patient's permission. Columba used to work for [employer] and reports that she has applied patient for emt intermediate assistance. Notified Columba that TUNNEL MUCKER will do expedited MICKEY application as well. All in agreement to the above. Son and spouse comfortable with plan to d/c patient home with and MICKEY application pending. P: Home today with [facility]. NOAH Goodwin
--- NOTE | 2020-10-22 09:21 | CM.DPNOTE ---
DCP/continued: Received call back from [facility]/Theron Carroll phone# [phone]. Theron inquiring on whether or not patient hospitalized? Left vm with Theron informing him that patient will need in home assessment ANN MARIE for MICKEY. Patient discharged on 10-21-20 with HH arranged through [facility]. P: Home. State to follow up for outpatient long-term services either in the home or placement. NOAH Goodwin
== END 2020-10-21 13:25 | disposition home health service (06) ==
LOC: ED 07:40 → AC 09:35
PROVIDERS: Admitting Provider Internal Medicine; Emergency Provider Emergency Medicine; PCP Family Medicine; Referring Provider Emergency Medicine; Visit Provider Internal Medicine
DX: K70.31 Alcoholic cirrhosis of liver with ascites (principal); R10.9 Unspecified abdominal pain; R53.1 Weakness; D64.9 Anemia, unspecified; E87.1 Hypo-osmolality and hyponatremia; K76.6 Portal hypertension; F32.9 Major depressive disorder, single episode, unspecified; Z91.81 History of falling; Z20.828 Contact with and (suspected) exposure to other viral communicable diseases
CPT/HCPCS: 36415; 74177; 80048; 80053; 80074; 80076; 81003; 81015; 82042; 82140; 82550; 82728; 83540; 83550; 83605; 83735; 83880; 84145; 84157; 85025; 85610; 85730; 86706; 87040; 87070; 87075; 87205; 87635; 89051; 93005; 96360; 96361; 96372; 97110; 97162; 97166; 97530; 97535; 99282; G0378; J1650; J3475; Q9967

== ENCOUNTER 2020-11-15 18:04 | Emergency (ER) | payer OTHER, SELFPAY ==
[2020-10-18 12:59] VITALS: BMI 31.5
[2020-11-15] VITALS (8 sets, daily range): BP systolic 100–130; BP diastolic 53–60; PULSE 72–76; RESP 16; TEMP 37.1; O2SAT 96–99; BMI 31.0
--- NOTE | 2020-11-15 19:34 | ED.WOUNDLAC ---
HPI - Wound/Laceration General Chief Complaint: Recheck/Abnormal Lab/Rx Stated Complaint: HAD SURGERY LEAKING ON LEFT SIDE LOWER Time Seen by Provider: 11/15/20 19:18 Source: patient and family Mode of arrival: Family Vehicle History of Present Illness HPI narrative: Patient here with . Here to evaluate for paracentesis site left lower quadrant abdomen that was done this past Wednesday in [place] at [facility] emergency department. Had 7 L removed. History ascites. Since then no fever chills nausea or vomiting. No abdominal pain. Dressing was evaluated by home nurse the following day on Wednesday and was soaked. Was changed. The same dressing was evaluated by today and it was wet. He changed it today. At this time dressing removed and there is no no no leakage. No palpable fluid collection under the skin. Puncture site is closed. No bleeding no discharge or any leak Related Data Home Medications Medication Instructions Recorded Confirmed melatonin 5 mg PO BEDTIME PRN 10/18/20 10/18/20 sertraline 50 mg PO BEDTIME 10/18/20 10/18/20 Previous Rx's Medication Instructions Recorded folic acid 1 mg PO DAILY #100 tab 09/26/20 multivitamin 1 tab PO DAILY #100 tab 09/26/20 furosemide 40 mg PO DAILY 30 Days #30 tab 10/21/20 spironolactone 50 mg PO 0800,1700 30 Days #60 tab 10/21/20 Allergies Allergy/AdvReac Type Severity Reaction Status Date / Time No Known Drug Allergies Allergy Verified 09/26/20 12:43 Review of Systems Review of Systems Narrative: GENERAL: Denies chills, fatigue, malaise, fever, sweats. HEENT: Denies sinus pain, ear pain, sore throat, difficulty swallowing RESPIRATORY: Denies dyspnea, cough CARDIOVASCULAR: Denies chest pain, palpitations, edema, GASTROINTESTINAL: Denies nausea, vomiting, abdominal pain, diarrhea, constipation, melena. : Denies dysuria, frequency, hematuria MUSCULOSKELETAL: denies muscle or bony pain SKIN: Denies rash, skin lesions NEUROLOGIC: Denies weakness, headache, numbness, change in speech, confusion PSYCHIATRIC: No SI or HI or hallucinations ROS Unobtainable: All systems reviewed & are unremarkable except as noted in HPI and below Patient History Medical History Alcoholism Allergies Bilateral leg weakness Cirrhosis Depression (~1985) History of chicken pox (~1958) Restless leg syndrome Transaminitis Vitiligo (~2017) Surgical History No significant past surgical history Social History marital status: household members: spouse and children pets and animals: No education level: high school occupational status: employed current occupational exposures/hazards: Yes ([place]) travel history: other leisure activities: reading and other other: Walking seatbelt use: always working smoke detector in home: Yes fire extinguisher in home: Yes carbon monox detector in home: Yes firearms in home: No do you feel safe at home: Yes Smoking Status: Former smoker alcohol intake: former during the past year weight has: decreased > 10 lbs well-balanced diet: daily or most days daily servings fruits/ve-4 caffeine: Yes (Rare) eating out: 1-3 times/week Type(s) of exercise: walking and bicycling frequency: daily duration: 15-30 minutes/day Smoking Status: Former smoker alcohol intake frequency: other Alcohol type: hard liquor Substance Use Type: does not use Exam Narrative Exam Narrative: GENERAL: patient appears stated age. Well-nourished, well-developed patient, in no distress, not toxic not dyspneic HEAD: Normocephalic. EYES: Pupils equal round and reactive. No scleral icterus. No injection no discharge ENT: Mucous membranes moist. No drooling no tongue elevation no trismus no malocclusion NECK: Trachea midline. Non tender CARDIOVASCULAR: Regular rate and rhythm without murmurs, gallops, or rubs. RESPIRATORY: Clear to auscultation. Breath sounds equal bilaterally. No wheezes, rales, or rhonchi. GASTROINTESTINAL: Abdomen soft, non-tender, abdomen is distended. No peritoneal signs. Bowel sounds present. Puncture site left lower quadrant is closed. There is no leakage no erythema no discharge no induration. No palpable abscess no palpable fluid collection under the skin. I tried patient expressing any possible fluid under the skin and none was palpable or expressed out a puncture site. No bleeding. EXTREMITIES: No gross deformities. BACK: Nontender without deformity or crepitance. No flank tenderness. NEURO: AOx4. SKIN: Warm and dry, not jaundiced PSYCH: Not anxious, is cooperative Initial Vital Signs Initial Vital Signs: Vital Signs Temperature 98.7 F 11/15/20 18:19 Pulse Rate 74 11/15/20 18:19 Respiratory Rate 16 11/15/20 18:19 Blood Pressure 130/60 11/15/20 18:19 Pulse Oximetry 97 11/15/20 18:19 Course Course Course Narrative: No new issues during course of stay. No fluid leak. Orders Ordered: ED Orders 11/15/20 19:45 Complete Blood Count AUTO DIFF Stat Comprehensive Metabolic Panel Stat Partial Thromboplastin Time Stat Prothrombin Time INR Stat Discontinued Medications Sodium Chloride (Normal Saline 0.9%) 1,000 mls @ 150 mls/hr IV CONT JOSE Reevaluation(s) Reevaluation #1: Reviewed with patient and results. Laboratory studies at baseline for patient. Re-evaluation of dressing and it remains dry. Time: 20:51 Vital Signs Vital signs: Vital Signs - 8 hr 11/15/20 18:19 11/15/20 18:30 11/15/20 19:00 Temperature 98.7 F Pulse Rate 73 72 73 Respiratory Rate 16 Blood Pressure 130/60 Pulse Oximetry 99 98 98 11/15/20 19:30 11/15/20 19:51 11/15/20 20:00 Temperature Pulse Rate 76 74 74 Respiratory Rate Blood Pressure 114/53 L 124/58 L Pulse Oximetry 97 97 96 11/15/20 20:30 11/15/20 21:00 Temperature Pulse Rate 73 Respiratory Rate 16 Blood Pressure 100/58 L Pulse Oximetry 98 MDM - Wound/Laceration Differential Diagnosis Differential diagnosis: Likely other (Evaluation of paracentesis puncture site) Medical Records Attestation: I reviewed the patient's medical records. Lab Data Attestation: I reviewed the patient's lab results. Result diagrams: 11/15/20 19:45 11/15/20 19:45 Labs: Lab Results 11/15/20 11/15/20 11/15/20 Range/Units 19:45 19:45 19:45 WBC 12.9 H (4.5-11.0) X10^3/uL RBC 3.48 L (4.0-5.2) X10^6/uL Hgb 10.8 L (12.0-16.0) g/dL Hct 32.3 L (36-46) % MCV 93.0 (80-100) fL MCH 31.1 (26-34) PG MCHC 33.4 (30-36) % RDW 14.2 (11.6-14.8) % Plt Count 222 (150-400) X10^3/uL Neut % (Auto) 75.5 H (50-75) % Lymph % (Auto) 15.1 L (25-40) % [place] % (Auto) 8.0 (3-14) % Eos % (Auto) 0.8 L (2-4) % Baso % (Auto) 0.6 (0-2) % Neut # (Auto) 9800 H (1120-8549) /uL Lymph # (Auto) 1900 (5852-7946) /uL [place] # (Auto) 1000 H (0-900) /uL Eos # (Auto) 100 (0-450) /uL Baso # (Auto) 100 (0-100) /uL PT 14.9 H (10.1-12.7) SECONDS INR 1.3 (0.9-1.3) APTT 32 (26.4-36.2) SECONDS Sodium 131 L (137-145) mmol/L Potassium 4.1 (3.4-5.1) mmol/L Chloride 98 (98-107) mmol/L Carbon Dioxide 27 (22-32) mmol/L BUN 28 H (7-17) mg/dL Creatinine 1.28 H (0.52-1.04) mg/dL Estimated GFR 41.7 L (>60) mL/min BUN/Creatinine Ratio 21.9 (6-22) Glucose 94 (80-110) mg/dL Calcium 8.8 (8.4-10.2) mg/dL Total Bilirubin 1.7 H (0.2-1.3) mg/dL AST 78 H (14-36) IU/L ALT 48 H (<35) IU/L Alkaline Phosphatase 195 H (38-126) U/L Total Protein 6.5 (6.3-8.2) g/dL Albumin 3.1 L (3.5-5.0) g/dL Globulin 3.4 (1.7-4.1) g/dL Albumin/Globulin Ratio 0.9 L (1.0-2.8) MDM Narrative Medical decision making narrative: Appropriate for discharge home. No fever. White cell count reviewed. Is at baseline. Liver enzymes as well as well as coagulation lab studies. Reviewed with patient and likely seroma buildup or some of the ascites after procedure on Wednesday that has drained and last couple of days. Currently no drainage at this time. They understand the need to follow-up with gastroenterology. Multiple paracentesis from the ER can lead to risk of infection. None indicated this time. No respiratory complaints. No altered mental status. No imaging indicated. Discharge Plan Departure Patient Disposition: Home Clinical Impression: Encounter for wound re-check Instructions: DI for Ascites, DI for Abdominal Paracentesis Activity Restrictions/Additional Instructions: Return if worse or if any questions or concerns. Return if any fever abdominal pain. Return if any fluid leak from puncture site. Contact your family doctor on Wednesday to get referral for Gastroenterology regarding ascites and evaluation of your liver. Prescriptions: No Action sertraline 50 mg tablet 50 mg PO BEDTIME RF: 0 melatonin 5 mg Tablet 5 mg PO BEDTIME PRN (Reason: Sleep) RF: 0 furosemide 40 mg Tablet 40 mg PO DAILY 30 Days Qty: 30 RF: 0 spironolactone 50 mg tablet 50 mg PO 0800,1700 30 Days Qty: 60 RF: 0 folic acid 1 mg tablet 1 mg PO DAILY Qty: 100 RF: 0 multivitamin Tablet 1 tab PO DAILY Qty: 100 RF: 0 Referrals: Bib Toro MD [Primary Care Provider] -
[2020-11-15 19:52] LABS: Add Manual Diff / Slide Review NO; Basophils Absolute Auto 100 /uL (0-100); Basophils Percent Auto 0.6 % (0-2); Eosinophils Absolute Auto 100 /uL (0-450); Eosinophils Percent Auto 0.8 % (2-4); Hematocrit 32.3 % (36-46); Hemoglobin 10.8 g/dL (12.0-16.0); Lymphocytes Absolute Auto 1900 /uL (1100-4500); Lymphocytes Percent Auto 15.1 % (25-40); Mean Corpuscular HGB Conc 33.4 % (30-36); Mean Corpuscular Hemoglobin 31.1 PG (26-34); Monocytes Absolute Auto 1000 /uL (0-900); Neutrophils Absolute Auto 9800 /uL (1500-7000); Neutrophils Percent Auto 75.5 % (50-75); Platelet Count 222 X10^3/uL (150-400); Red Blood Cell Count 3.48 X10^6/uL (4.0-5.2); Red Cell Distribution Width 14.2 % (11.6-14.8); White Blood Cell Count 12.9 X10^3/uL (4.5-11.0)
[2020-11-15 19:59] LABS: INR 1.3 (0.9-1.3); Prothrombin Time 14.9 SECONDS (10.1-12.7)
[2020-11-15 20:02] LABS: PTT Partial Thromboplastin Tim 32 SECONDS (26.4-36.2)
[2020-11-15 20:03] LABS: Aspartate Aminotransferase 78 IU/L (14-36); BUN Creatinine Ratio 21.9 (6-22); Bilirubin Total 1.7 mg/dL (0.2-1.3); Blood Urea Nitrogen 28 mg/dL (7-17); Calcium 8.8 mg/dL (8.4-10.2); Carbon Dioxide 27 mmol/L (22-32); Chloride 98 mmol/L (98-107); Estimated Glomerular Filt Rate 41.7 mL/min (>60); Glucose 94 mg/dL (80-110); Potassium 4.1 mmol/L (3.4-5.1); Sodium 131 mmol/L (137-145)
[2020-11-15 20:04] LABS: Alanine Aminotransferase 48 IU/L (<35); Albumin 3.1 g/dL (3.5-5.0); Albumin Globulin Ratio 0.9 (1.0-2.8); Alkaline Phosphatase 195 U/L (38-126); Globulin 3.4 g/dL (1.7-4.1); HEMOLYSIS < 15 (0-50); Total Protein 6.5 g/dL (6.3-8.2)
== END 2020-11-15 21:06 | disposition home or self-care (01) ==
PROVIDERS: Emergency Provider Emergency Medicine; PCP Family Medicine
DX: Z48.00 Encounter for change or removal of nonsurgical wound dressing (principal)
CPT/HCPCS: 80053; 85025; 85610; 85730; 99281; 99283

== ENCOUNTER 2020-11-21 11:40 | Emergency (ER) | payer OTHER, SELFPAY ==
[2020-10-18 12:59] VITALS: BMI 31.5
[2020-11-21] VITALS (18 sets, daily range): BP systolic 101–136; BP diastolic 51–67; PULSE 72–98; RESP 17–18; TEMP 36.7; O2SAT 89–99; BMI 28.5
--- NOTE | 2020-11-21 12:08 | PC.NURSE ---
Pt has hx liver disease with pericentesis x2. Pt here for distended abdomen,difficulty hearing bowel sounds due to swelling of abdomen
--- NOTE | 2020-11-21 12:37 | ED.ABDPAIN ---
HPI - Abdominal Pain General Chief Complaint: Abdominal Pain Stated Complaint: ABDOMINAL BLOATING Time Seen by Provider: 11/21/20 12:31 Source: patient and family ( at bedside, assists with majority of history.) Mode of arrival: Wheelchair Limitations: no limitations History of Present Illness HPI narrative: This is a 65-year-old female comes emergency department with complaint of increasing swelling of her abdomen. Patient states that she is looking for a paracentesis. Patient has known alcoholic cirrhotic liver disease. Patient states that she has quit drinking alcohol. She is on spironolactone, Lasix as well as a [id number] supplement with milk thistle, she does not take any anticoagulants. She is not on nadolol. Patient has not had any fevers, she denies shortness of breath or chest pain. She denies any nausea or vomiting. She states she has had a significant weight gain of 20 lb over the last several days. She has noted some swelling her lower extremities but not significantly worse. She has had some mild constipation but had a bowel movement yesterday. No dysuria, frequency or urgency. She has been able to ambulate but uses a walker typically. Patient states that she had paracentesis on the , according to her and her they took 7 L off of her abdomen. They states that there was no signs of infection. Patient follows with GI/hepatology in [place] with Dr. Parson. Patient states that they are waiting 6 months, they will be reassessed for possibility of patient is a liver transplant candidate. Patients primary care physician in Dr. Toro. She denies any surgical history. No tobacco, or illicit. Related Data Home Medications Medication Instructions Recorded Confirmed melatonin 5 mg PO BEDTIME PRN 10/18/20 10/18/20 sertraline 50 mg PO BEDTIME 10/18/20 10/18/20 Previous Rx's Medication Instructions Recorded folic acid 1 mg PO DAILY #100 tab 09/26/20 multivitamin 1 tab PO DAILY #100 tab 09/26/20 Allergies Allergy/AdvReac Type Severity Reaction Status Date / Time No Known Drug Allergies Allergy Verified 11/21/20 11:59 Review of Systems Review of Systems ROS Unobtainable: All systems reviewed & are unremarkable except as noted in HPI and below Patient History Medical History Alcoholism Allergies Bilateral leg weakness Cirrhosis Depression (~1985) History of chicken pox (~1958) Restless leg syndrome Transaminitis Vitiligo (~2017) Surgical History No significant past surgical history Social History marital status: household members: spouse and children pets and animals: No education level: high school occupational status: employed current occupational exposures/hazards: Yes ([place]) travel history: other leisure activities: reading and other other: Walking seatbelt use: always working smoke detector in home: Yes fire extinguisher in home: Yes carbon monox detector in home: Yes firearms in home: No do you feel safe at home: Yes Smoking Status: Former smoker alcohol intake: former during the past year weight has: decreased > 10 lbs well-balanced diet: daily or most days daily servings fruits/ve-4 caffeine: Yes (Rare) eating out: 1-3 times/week Type(s) of exercise: walking and bicycling frequency: daily duration: 15-30 minutes/day Smoking Status: Former smoker alcohol intake frequency: other Alcohol type: hard liquor Substance Use Type: does not use Exam Narrative Exam Narrative: GENERAL: Alert and oriented x three, thin female appearing older than stated age in mild distress. HEENT: Head normocephalic, atraumatic, EOMI, pupils reactive, face symmetric, moist mucous membranes NECK: Supple, full range of motion CARDIOVASCULAR: Regular rate and rhythm without murmurs, rubs or gallops. RESPIRATORY: Breath sounds equal bilaterally, no wheezes rales or rhonchi. ABDOMEN: Soft, distended with fluid wave. Nontender to palpation. Normoactive bowel sounds all 4 quadrants. No guarding or rebound, rigidity, no mass. There is a bandage in place on the left lower abdomen from prior paracentesis the puncture appears healed although states there has been some drainage. Bandage is dry. : No CVA tenderness EXTREMITIES: Normal range of motion, edema bilateral lower extremities. Patient has two erythema with superficial skin breakdown circumferentially on the right lower extremity consistent with edge of a tight socks. Neurovascularly intact NEUROLOGICAL: Cranial nerves II through XII grossly intact. Moving all extremities SKIN: Warm, dry, no petechiae, no rashes or lesions. Initial Vital Signs Initial Vital Signs: Vital Signs Temperature 98.1 F 11/21/20 11:54 Pulse Rate 87 11/21/20 11:54 Respiratory Rate 17 11/21/20 11:54 Blood Pressure 136/61 11/21/20 11:54 Pulse Oximetry 96 11/21/20 11:54 Scores GCS Zev coma scale eye opening: Spontaneous Zev coma scale verbal response: Orientated Zev coma scale motor response: Obey commands [place] coma scale total score: 15 Course Orders Ordered: ED Orders 11/21/20 12:51 US abdomen limited Stat 11/21/20 13:00 Urinalysis and Microscopic Stat 11/21/20 13:34 US paracentesis Stat 11/21/20 13:45 Complete Blood Count AUTO DIFF Stat Comprehensive Metabolic Panel Stat Lipase Stat Partial Thromboplastin Time Stat Prothrombin Time INR Stat 11/21/20 13:50 Ammonia (NH3) Stat 11/21/20 14:15 Body Fluid Culture Stat Cell Count w Diff Body Fluid Stat Glucose Body Fluid Stat Total Protein Body Fluid Stat Discontinued Medications Albumin Human (Albuminar) 50 gm in 200 mls @ 200 mls/hr IV NOW ONE Stop: 11/21/20 16:14 Last Infusion: 11/21/20 17:25 Dose: 0 mls/hr Documented by: Admin: 11/21/20 15:43 Dose: 200 mls/hr Documented by: [place] Reevaluation(s) Reevaluation #1: Reviewed with patient pending labs, plan for ultrasound-guided paracentesis. Radiology's kindly agreed to assist and perform this procedure. Reevaluation #2: Patient tolerated paracentesis without issue. She is currently receiving albumin. Reevaluation #3: Patient is feeling fine. Reviewed patients discharge instructions and recommendations for her liver/gi physicians. Patient's request the phone number of their gastroenterology liver specialist which was printed off and provided for them Time: 18:02 Vital Signs Vital signs: Vital Signs - 8 hr 11/21/20 11:54 11/21/20 12:02 11/21/20 12:30 Temperature 98.1 F Pulse Rate 87 82 76 Respiratory Rate 17 Blood Pressure 136/61 125/59 L Pulse Oximetry 96 98 97 11/21/20 13:00 11/21/20 13:30 11/21/20 14:00 Temperature Pulse Rate 78 76 75 Respiratory Rate Blood Pressure Pulse Oximetry 89 L 97 97 11/21/20 14:22 11/21/20 14:30 11/21/20 14:51 Temperature Pulse Rate 78 75 74 Respiratory Rate Blood Pressure 121/67 120/65 116/57 L Pulse Oximetry 98 99 97 11/21/20 15:00 11/21/20 15:30 11/21/20 16:00 Temperature Pulse Rate 72 74 73 Respiratory Rate Blood Pressure 118/60 125/59 L 107/56 L Pulse Oximetry 99 96 98 11/21/20 16:30 11/21/20 17:00 11/21/20 17:01 Temperature Pulse Rate 75 78 78 Respiratory Rate Blood Pressure 117/56 L 101/54 L Pulse Oximetry 98 97 96 11/21/20 17:30 11/21/20 17:32 11/21/20 17:34 Temperature Pulse Rate 85 89 98 H Respiratory Rate 18 Blood Pressure 101/51 L 102/52 L 105/55 L Pulse Oximetry 90 L 96 97 MDM - Abdominal Pain Lab Data Result diagrams: 11/21/20 13:45 11/21/20 13:45 Labs: Lab Results 11/21/20 11/21/20 11/21/20 Range/Units 13:00 13:45 13:45 WBC 10.2 (4.5-11.0) X10^3/uL RBC 3.48 L (4.0-5.2) X10^6/uL Hgb 10.8 L (12.0-16.0) g/dL Hct 32.1 L (36-46) % MCV 92.4 (80-100) fL MCH 31.0 (26-34) PG MCHC 33.5 (30-36) % RDW 15.0 H (11.6-14.8) % Plt Count 222 (150-400) X10^3/uL Neut % (Auto) 71.3 (50-75) % Lymph % (Auto) 18.2 L (25-40) % [place] % (Auto) 9.7 (3-14) % Eos % (Auto) 0.2 L (2-4) % Baso % (Auto) 0.6 (0-2) % Neut # (Auto) 7300 H (2727-0484) /uL Lymph # (Auto) 1900 (8002-3270) /uL [place] # (Auto) 1000 H (0-900) /uL Eos # (Auto) 0 (0-450) /uL Baso # (Auto) 100 (0-100) /uL PT 13.3 H (10.1-12.7) SECONDS INR 1.2 (0.9-1.3) APTT 31 (26.4-36.2) SECONDS Sodium (137-145) mmol/L Potassium (3.4-5.1) mmol/L Chloride (98-107) mmol/L Carbon Dioxide (22-32) mmol/L BUN (7-17) mg/dL Creatinine (0.52-1.04) mg/dL Estimated GFR (>60) mL/min BUN/Creatinine Ratio (6-22) Glucose (80-110) mg/dL Calcium (8.4-10.2) mg/dL Total Bilirubin (0.2-1.3) mg/dL AST (14-36) IU/L ALT (<35) IU/L Alkaline Phosphatase (38-126) U/L Ammonia (9-30) umol/L Total Protein (6.3-8.2) g/dL Albumin (3.5-5.0) g/dL Globulin (1.7-4.1) g/dL Albumin/Globulin Ratio (1.0-2.8) Lipase (23-300) U/L Urine Color Yellow Urine Appearance Clear Urine pH 5.5 (4.5-8.0) Ur Specific [place] 1.020 (1.000-1.035) Urine Protein Negative (Negative) Urine Glucose (UA) Negative (Negative) g/dL Urine Ketones Negative (NEGATIVE) Urine Occult Blood Negative (Negative) Urine Nitrate Negative (Negative) Urine Bilirubin Negative (NEGATIVE) Urine Urobilinogen 0.2 (0.2) E.U./dL Ur Leukocyte Esterase Negative (NEGATIVE) Urine RBC None seen (0-5/HPF) Urine WBC None seen (0-5/HPF) Ur Squamous Epith Cells 0-1 /hpf (0-5/HPF) Urine Bacteria None seen (None) Ur Culture Indicated? Cult not indicated Fluid Color Fluid Appearance Fluid RBC /uL Fld Tot Nucleated Cell /uL Fluid Polynuclear WBCs % Fluid Mononuclear WBCs % Fluid Eosinophils % Fluid Other Cells % Body Fluid Clot Fluid Glucose mg/dL Fluid Total Protein g/dL 11/21/20 11/21/20 11/21/20 Range/Units 13:45 13:50 14:15 WBC (4.5-11.0) X10^3/uL RBC (4.0-5.2) X10^6/uL Hgb (12.0-16.0) g/dL Hct (36-46) % MCV (80-100) fL MCH (26-34) PG MCHC (30-36) % RDW (11.6-14.8) % Plt Count (150-400) X10^3/uL Neut % (Auto) (50-75) % Lymph % (Auto) (25-40) % [place] % (Auto) (3-14) % Eos % (Auto) (2-4) % Baso % (Auto) (0-2) % Neut # (Auto) (8150-1221) /uL Lymph # (Auto) (1357-8398) /uL [place] # (Auto) (0-900) /uL Eos # (Auto) (0-450) /uL Baso # (Auto) (0-100) /uL PT (10.1-12.7) SECONDS INR (0.9-1.3) APTT (26.4-36.2) SECONDS Sodium 132 L (137-145) mmol/L Potassium 3.9 (3.4-5.1) mmol/L Chloride 99 (98-107) mmol/L Carbon Dioxide 29 (22-32) mmol/L BUN 37 H (7-17) mg/dL Creatinine 1.49 H (0.52-1.04) mg/dL Estimated GFR 35.0 L (>60) mL/min BUN/Creatinine Ratio 24.8 H (6-22) Glucose 102 (80-110) mg/dL Calcium 9.0 (8.4-10.2) mg/dL Total Bilirubin 1.7 H (0.2-1.3) mg/dL AST 83 H (14-36) IU/L ALT 43 H (<35) IU/L Alkaline Phosphatase 158 H (38-126) U/L Ammonia 14 (9-30) umol/L Total Protein 6.8 (6.3-8.2) g/dL Albumin 3.2 L (3.5-5.0) g/dL Globulin 3.6 (1.7-4.1) g/dL Albumin/Globulin Ratio 0.9 L (1.0-2.8) Lipase 151 (23-300) U/L Urine Color Urine Appearance Urine pH (4.5-8.0) Ur Specific [place] (1.000-1.035) Urine Protein (Negative) Urine Glucose (UA) (Negative) g/dL Urine Ketones (NEGATIVE) Urine Occult Blood (Negative) Urine Nitrate (Negative) Urine Bilirubin (NEGATIVE) Urine Urobilinogen (0.2) E.U./dL Ur Leukocyte Esterase (NEGATIVE) Urine RBC (0-5/HPF) Urine WBC (0-5/HPF) Ur Squamous Epith Cells (0-5/HPF) Urine Bacteria (None) Ur Culture Indicated? Fluid Color Yellow Fluid Appearance Slightly cloudy Fluid RBC < 1000 /uL Fld Tot Nucleated Cell 56 /uL Fluid Polynuclear WBCs 1 % Fluid Mononuclear WBCs 71 % Fluid Eosinophils 0 % Fluid Other Cells 28 % Body Fluid Clot No clots present Fluid Glucose 101 mg/dL Fluid Total Protein < 2.0 g/dL Imaging Data US - abdomen: Radiologist's Impression: [address] [id number] ReportSigned Patient: Gwen Tyson AMR#: [id number]: 4Acct:[id number]/Sex: 65 / FDate of Service: 11/21/20Loc: EDAccession Number: [id number] Procedure: US abdomen limited Ordering Provider: Shabnam Marrero D.O. PROCEDURE: US ABDOMEN LIMITED INDICATIONS: ASCITES, CIRRHOSIS, ABDOMINAL DISCOMFORT TECHNIQUE: Real-time scanning was performed of the abdominal and retroperitoneal organs, with image documentation. COMPARISON: [facility], US, US ABDOMEN LIMITED, 09/23/2020, 10:11. [facility], CT, CT ABDOMEN PELVIS W CON, 10/18/2020, 8:33. FINDINGS: Liver: Liver is enlarged measuring 18 cm. Main portal vein is patent. Gallbladder: Gallbladder demonstrates no visualized stones. Wall thickness is mildly prominent measuring 3.3 mm. Biliary ducts: Intrahepatic bile ducts are non-dilated. Extrahepatic bile duct caliber measures 3.4 mm. Normal is 6-7 mm or less in diameter, or 10 mm or less post-cholecystectomy. Miscellaneous: Moderate ascites. IMPRESSION: 1. Moderate ascites as above. 2. Gallbladder is distended with appearance of thickened wall. No stones are identified. Recommend correlation of patient's symptoms as gallbladder wall thickening can be caused by cholecystitis. However, hepatic disease may also cause gallbladder wall thickening. Dictated by: Jeniffer Hutchins M.D. on 11/21/2020 at 13:53 Approved by: Jeniffer Hutchins M.D. on 11/21/2020 at 13:56 MDM Narrative Medical decision making narrative: Attempting to get records from [facility] from paracentesis at [facility] on November 12. These were obtained and does not show any signs of infection. Patient labs appear consistent with priors with no major abnormalities, does reflect chronic kidney disease as well as chronically elevated LFTs. Patient does not have elevation in her white count. Her anemia peers stable. Urinalysis is negative, gallbladder does appear distended with appearance of thickened wall. Patient is nontender in this location with no infectious changes appreciated in her lab work today. This can be secondary to hepatic disease as well. Patient tolerated paracentesis well. Blood pressure is little bit lower status post procedure. She was recommended to have 50 g of albumin postprocedure or 10 g per L removed. Patient's am in up been able to ambulate without issue. Patient does not have any symptoms concerning for SBP but culture is ordered. Discharge Plan Departure Patient Disposition: Home Clinical Impression: Abdominal ascites, Cirrhosis of liver Activity Restrictions/Additional Instructions: Follow-up with your primary care physician and or your GI/hepatology team at [place]. I spoke with Dr. Bazan who is covering today for your liver doctor, Dr. Parson He recommends that you call their office if you notice your weight is increasing, you are having increasing swelling of your abdomen or body. They can adjust your medications and this may be able to prevent the need for frequent paracentesis. He also recommends a maximum of 2 grams or 2000mg of sodium daily in your diet. He also recommends limiting your water intake to 2 Liters daily. If you find you need increasingly frequent paracentesis these can be set up as an outpatient procedure. The scheduling number is [phone]. Their fax number is [phone] Your labs today appear to be at their normal baseline from most recent in September. Return for fevers, new or worsening abdominal pain, lightheadedness or passing out, new shortness of breath, chest pain or pressure, black or bloody stools, rapidly worsening swelling of her extremities or other new or concerning symptoms. Prescriptions: No Action sertraline 50 mg tablet 50 mg PO BEDTIME RF: 0 melatonin 5 mg Tablet 5 mg PO BEDTIME PRN (Reason: Sleep) RF: 0 folic acid 1 mg tablet 1 mg PO DAILY Qty: 100 RF: 0 multivitamin Tablet 1 tab PO DAILY Qty: 100 RF: 0 Referrals: Bib Toro MD [Primary Care Provider] -
--- NOTE | 2020-11-21 12:51 | DI.US.S_ITS ---
PROCEDURE: US ABDOMEN LIMITED INDICATIONS: ASCITES, CIRRHOSIS, ABDOMINAL DISCOMFORT TECHNIQUE: Real-time scanning was performed of the abdominal and retroperitoneal organs, with image documentation. COMPARISON: [facility], US, US ABDOMEN LIMITED, 09/23/2020, 10:11. [facility], CT, CT ABDOMEN PELVIS W CON, 10/18/2020, 8:33. FINDINGS: Liver: Liver is enlarged measuring 18 cm. Main portal vein is patent. Gallbladder: Gallbladder demonstrates no visualized stones. Wall thickness is mildly prominent measuring 3.3 mm. Biliary ducts: Intrahepatic bile ducts are non-dilated. Extrahepatic bile duct caliber measures 3.4 mm. Normal is 6-7 mm or less in diameter, or 10 mm or less post-cholecystectomy. Miscellaneous: Moderate ascites. IMPRESSION: 1. Moderate ascites as above. 2. Gallbladder is distended with appearance of thickened wall. No stones are identified. Recommend correlation of patient's symptoms as gallbladder wall thickening can be caused by cholecystitis. However, hepatic disease may also cause gallbladder wall thickening. Dictated by: Jeniffer Hutchins M.D. on 11/21/2020 at 13:53 Approved by: Jeniffer Hutchins M.D. on 11/21/2020 at 13:56
[2020-11-21 13:05] LABS: Bacteria Urine None Seen; RBC Urine None Seen (0-5/HPF); WBC Urine None Seen (0-5/HPF)
[2020-11-21 13:06] LABS: Appearance Urine UA CLEAR; Bilirubin Urine UA NEGATIVE (NEGATIVE); Color Urine UA YELLOW; Glucose Urine UA NEGATIVE (Negative); Ketones Urine UA NEGATIVE (NEGATIVE); Leukocyte Esterase Urine UA NEGATIVE (NEGATIVE); Nitrite Urine UA NEGATIVE (Negative); Occult Blood Urine UA NEGATIVE (Negative); Protein Urine UA NEGATIVE (Negative); Urobilinogen Urine UA 0.2 E.U./dL (0.2)
[2020-11-21 13:10] LABS: pH Urine UA 5.5 (4.5-8.0)
[2020-11-21 13:14] LABS: Culture Indicated Urine Cult Not Indicated; Squamous Epithelial Cell Urine 0-1 /HPF (0-5/HPF)
--- NOTE | 2020-11-21 13:34 | DI.US.S_ITS ---
PROCEDURE: US PARACENTESIS INDICATIONS: ascites TECHNIQUE: The indications, alternatives, benefits, risks, and complications of the procedure were explained to the patient. Written informed consent was obtained and placed in the chart. The abdomen and pelvis were examined sonographically, and an appropriate site was chosen for paracentesis. The skin was prepared and draped in the usual sterile fashion, and 1% lidocaine was infiltrated from the skin down through the peritoneal surface. A 19-gauge catheter-covered needle was then introduced into the peritoneal space, the catheter was advanced and the needle was withdrawn, and thereafter peritoneal fluid was withdrawn. The catheter was then removed and a dressing was applied. The fluid was discarded if the clinician did not order diagnostic testing of the fluid. COMPARISON: None. FINDINGS: Access site: Right lower quadrant Needle: One-Step centesis catheter with introducer needle. Fluid volume and description: 5000 cc of turbid yellow ascites. Fluid sent for diagnostic testing: Per ER orders Medications: 1% lidocaine for local anaesthesia. Complications: None. IMPRESSION: Successful ultrasound-guided paracentesis. Dictated by: Supa Lopez M.D. on 11/21/2020 at 15:39 Approved by: Supa Lopez M.D. on 11/21/2020 at 15:40
[2020-11-21 13:54] LABS: Add Manual Diff / Slide Review NO; Basophils Absolute Auto 100 /uL (0-100); Basophils Percent Auto 0.6 % (0-2); Eosinophils Absolute Auto 0 /uL (0-450); Eosinophils Percent Auto 0.2 % (2-4); Hematocrit 32.1 % (36-46); Hemoglobin 10.8 g/dL (12.0-16.0); Lymphocytes Absolute Auto 1900 /uL (1100-4500); Lymphocytes Percent Auto 18.2 % (25-40); Mean Corpuscular HGB Conc 33.5 % (30-36); Mean Corpuscular Volume 92.4 fL (80-100); Monocytes Absolute Auto 1000 /uL (0-900); Monocytes Percent Auto 9.7 % (3-14); Neutrophils Absolute Auto 7300 /uL (1500-7000); Neutrophils Percent Auto 71.3 % (50-75); Platelet Count 222 X10^3/uL (150-400); Red Blood Cell Count 3.48 X10^6/uL (4.0-5.2); White Blood Cell Count 10.2 X10^3/uL (4.5-11.0)
[2020-11-21 14:05] LABS: INR 1.2 (0.9-1.3); Prothrombin Time 13.3 SECONDS (10.1-12.7)
[2020-11-21 14:08] LABS: PTT Partial Thromboplastin Tim 31 SECONDS (26.4-36.2)
[2020-11-21 14:09] LABS: Alanine Aminotransferase 43 IU/L (<35); Albumin 3.2 g/dL (3.5-5.0); Albumin Globulin Ratio 0.9 (1.0-2.8); Alkaline Phosphatase 158 U/L (38-126); Aspartate Aminotransferase 83 IU/L (14-36); BUN Creatinine Ratio 24.8 (6-22); Bilirubin Total 1.7 mg/dL (0.2-1.3); Blood Urea Nitrogen 37 mg/dL (7-17); Carbon Dioxide 29 mmol/L (22-32); Chloride 99 mmol/L (98-107); Globulin 3.6 g/dL (1.7-4.1); Glucose 102 mg/dL (80-110); HEMOLYSIS < 15 (0-50); Lipase 151 U/L (23-300); Potassium 3.9 mmol/L (3.4-5.1); Sodium 132 mmol/L (137-145); Total Protein 6.8 g/dL (6.3-8.2)
[2020-11-21 14:15] LABS: Ammonia (NH3) 14 umol/L (9-30)
[2020-11-21 15:22] LABS: Glucose Body Fluid 101 mg/dL; Total Protein Body Fluid < 2.0 g/dL
[2020-11-21 15:31] LABS: Body Fluid Tot Nucleated Cells 56 /uL
[2020-11-21 15:33] LABS: Body Fluid Red Blood Cells < 1000 /uL
[2020-11-21] MEDS: ALBUMIN HUMAN 50 GM/200 ML VIAL IV (15:43)
[2020-11-21 15:54] LABS: Body Fluid Appearance SLIGHTLY CLOUDY; Body Fluid Clotted? NO CLOTS PRESENT; Body Fluid Color YELLOW
--- NOTE | 2020-11-21 15:59 | PATH_ITS ---
Note [facility] Accession Number: [id number] TESTS RESULT FLAG UNITS REF RANGE LAB Clinician Provided Cytology Information No. of containers..01 Other (Miscellaneous) 01 ABDOMINAL FLUID DIAGNOSIS: 01 ABDOMINAL FLUID NEGATIVE FOR MALIGNANT CELLS. MESOTHELIAL CELLS ARE PRESENT. THIS INTERPRETATION INCLUDES EVALUATION OF A CELL BLOCK. Pathologist ICD10: 01 R18.8 Soo Pacheco MD, Pathologist NPI- [id number] Thang Gray, Tile Mechanic Helper ([facility]) 01 40 CC, YELLOW, CLOUDY RECEIVED: FRESH IN ORANGE CAP CONTAINER. /VDU 11/22/2020 0954 Local FLAG LEGEND: L-Low Normal,H-High Normal,LL-Alert Low,HH-Alert High <-Panic Low,>-Panic High,A-Abnormal,AA-Critical Abnormal Performed at: 01 =Z [facility] [address], [place] [address] Choco Cartagena MD, Performed at: 01 [facility] [address], [place], [place] [id number] MD Choco Cartagena MD Phone: [phone]
[2020-11-21 16:00] LABS: Polynuclear WBC Body Fluid 1 %
[2020-11-21 16:01] LABS: Eosinophils Body Fluid 0 %; Mononuclear WBC Body Fluid 71 %
[2020-11-21 16:03] LABS: Other Cells Body Fluid 28 %
--- NOTE | 2020-11-21 16:54 | PC.NURSE ---
Pt tolerated paracentesis procedure well, 5000ml out. Dressing applied. Fluid taken to lab.
== END 2020-11-21 18:37 | disposition home or self-care (01) ==
PROVIDERS: Emergency Provider Emergency Medicine; PCP Family Medicine
DX: R18.8 Other ascites (principal); K70.30 Alcoholic cirrhosis of liver without ascites; R79.89 Other specified abnormal findings of blood chemistry
CPT/HCPCS: 36415; 49083; 76705; 80053; 81001; 82140; 82945; 83690; 84157; 85025; 85610; 85730; 87070; 87075; 87205; 89051; 96365; 96366; 99283; 99284; P9041

== ENCOUNTER 2020-12-07 14:36 | Emergency (ER) | payer OTHER, SELFPAY ==
[2020-10-18 12:59] VITALS: BMI 31.5
[2020-12-07] VITALS (12 sets, daily range): BP systolic 122–149; BP diastolic 66–71; PULSE 76–90; RESP 18–26; TEMP 36.7; O2SAT 95–98; BMI 31.9
--- NOTE | 2020-12-07 14:46 | PC.NURSE ---
on attempt to bring patient back to room, no one in waiting room.
--- NOTE | 2020-12-07 15:02 | PC.NURSE ---
reports last drink in november
--- NOTE | 2020-12-07 15:03 | ED_ITS ---
HPI - Abdominal Pain General Chief Complaint: Abdominal Pain Stated Complaint: para Time Seen by Provider: 12/07/20 14:39 Source: patient Mode of arrival: Wheelchair Limitations: no limitations History of Present Illness HPI narrative: 65-year-old female former smoker with cirrhosis presents with her in the chief complaint of abdominal distension, fullness and associated discomfort. She has had no fever or chills and has no trouble breathing. She denies nausea, vomiting or diarrhea. She denies any change in urinary habits such as dysuria, frequency or urgency. She has had no confusion and admits that she is doing rather well but thinks she needs to have her belly drained. She states she has been getting paracentesis about every 2 weeks, exclusively in emergency departments. She denies any change in medications or diet andd has been taking her medications as prescribed. She has a GI doctor locally and an upcoming appointment scheduled. She has yet to discuss the possibility of scheduled taps MD complaint: abdominal pain Onset (ago): day(s) Pain Consistency: constant Location: diffuse Severity: moderate Quality: aching Radiation: none Migration to: no migration Relieving factors: nothing Exacerbating factors: nothing Associated symptoms: denies other symptoms Related Data Home Medications Medication Instructions Recorded Confirmed melatonin 5 mg PO BEDTIME PRN 10/18/20 10/18/20 sertraline 50 mg PO BEDTIME 10/18/20 10/18/20 Previous Rx's Medication Instructions Recorded folic acid 1 mg PO DAILY #100 tab 09/26/20 multivitamin 1 tab PO DAILY #100 tab 09/26/20 Allergies Allergy/AdvReac Type Severity Reaction Status Date / Time No Known Drug Allergies Allergy Verified 11/21/20 11:59 Review of Systems Constitutional Constitutional: Denies chills, Denies fatigue, Denies fever(s), Denies frequent falls, Denies lethargy and Denies weakness Eyes Eyes: Denies change in vision, Denies eye discharge, Denies irritation and Denies loss of vision ENT Ears, Nose, Mouth, and Throat: Denies change in voice, Denies dizziness, Denies neck pain, Denies sore throat and Denies throat swelling Cardiovascular Cardiovascular: Denies chest pain, Denies irregular heart rhythm, Denies lightheadedness, Denies palpitations, Denies dyspnea, Denies dyspnea on exertion and Denies orthopnea Respiratory Respiratory: Denies cough, Denies dyspnea, Denies dyspnea on exertion and Denies wheezing Gastrointestinal Gastrointestinal: Reports abdominal pain, Reports bloating, Denies change in bowel habits, Denies diarrhea, Denies nausea and Denies vomiting Musculoskeletal Musculoskeletal: Denies neck pain and Denies numbness Integumentary/Breasts Skin/Breast: Denies pruritus, Denies erythema, Denies rash and Denies wounds Neurologic Neurologic: Denies behavioral changes, Denies confusion, Denies dizziness, Denies frequent falls, Denies loss of vision, Denies numbness and Denies weakness Psychiatric Psychiatric: Denies anxiety, Denies behavioral changes, Denies confusion, Denies depression, Denies homicidal ideation and Denies suicidal ideation Endocrine Endocrine: Denies fatigue, Denies flushing and Denies palpitations Hematologic/Lymphatic Hematologic/Lymphatic: Denies easy bruising Allergic/Immunologic Allergic/Immunologic: Denies urticaria, Denies throat swelling and Denies wheezing Patient History Medical History Alcoholism Allergies Bilateral leg weakness Cirrhosis Depression (~1985) History of chicken pox (~1958) Restless leg syndrome Transaminitis Vitiligo (~2017) Surgical History No significant past surgical history Social History marital status: household members: spouse and children pets and animals: No education level: high school occupational status: employed current occupational exposures/hazards: Yes ([employer]) travel history: other leisure activities: reading and other other: Walking seatbelt use: always working smoke detector in home: Yes fire extinguisher in home: Yes carbon monox detector in home: Yes firearms in home: No do you feel safe at home: Yes Smoking Status: Former smoker alcohol intake: former during the past year weight has: decreased > 10 lbs well-balanced diet: daily or most days daily servings fruits/ve-4 caffeine: Yes (Rare) eating out: 1-3 times/week Type(s) of exercise: walking and bicycling frequency: daily duration: 15-30 minutes/day Smoking Status: Former smoker alcohol intake frequency: 0-2 drinks per day Alcohol type: hard liquor Substance Use Type: does not use Exam Narrative Exam Narrative: GENERAL: [65] year old patient appears stated age. Well nourished, chronically ill, no jaundice, confusion or signs of respiratory distress HEAD: Atraumatic. Normocephalic. EYES: Pupils equal round and reactive. Extraocular motions intact. No scleral icterus. No injection or drainage. ENT: Nose without bleeding, purulent drainage. Throat without erythema, tonsillar hypertrophy or exudate. Airway patent. NECK: Trachea midline. Non tender CARDIOVASCULAR: Regular rate and rhythm without murmurs, gallops, or rubs. RESPIRATORY: Clear to auscultation. Breath sounds equal bilaterally. No wheezes, rales, or rhonchi. GASTROINTESTINAL: Firm, distended with fluid wave, no erythema, warmth or significant pain on palpation EXTREMITIES: No edema or joint tenderness. BACK: Nontender without deformity or crepitance. No flank tenderness. NEURO: AOx3. SKIN: No rash or erythema of visible areas Initial Vital Signs Initial Vital Signs: Vital Signs Blood Pressure 149/71 H 12/07/20 14:54 Procedures Paracentesis Time Out Performed: Yes Local Anesthetic: lidocaine 1% Amount of anesthesia used (mL): 6 Fluid: cloudy and sent to lab for analysis Post Procedure Exam: awake, alert Patient Tolerated Procedure: Well (3L removed) Complications: none Course Course Course Narrative: Patient tolerated procedure quite well. Symptoms greatly improved. Planned for 4L but drainage slowed to a trickle after 3L. Surely plenty left, but given significant improvement will defer to her doctors as an outpatient for ongoing plan Orders Ordered: ED Orders 12/07/20 14:56 Erythrocyte Sedimentation Rate Stat 12/07/20 15:03 US abdomen limited Stat 12/07/20 15:04 Ammonia (NH3) Stat Complete Blood Count AUTO DIFF Stat Comprehensive Metabolic Panel Stat Lactate (Lactic Acid) Stat Lipase Stat Magnesium Stat Prothrombin Time INR Stat 12/07/20 16:37 Albumin Body Fluid Stat Body Fluid Culture Stat Cell Count w Diff Body Fluid Stat Glucose Body Fluid Stat LDH Body Fluid Stat Total Protein Body Fluid Stat Vital Signs Vital signs: Vital Signs - 8 hr 12/07/20 14:54 12/07/20 14:55 12/07/20 14:59 Temperature 98.1 F Pulse Rate 90 85 Respiratory Rate 18 Blood Pressure 149/71 H 149/71 H Pulse Oximetry 98 95 12/07/20 15:00 12/07/20 15:30 12/07/20 15:54 Temperature Pulse Rate 85 78 78 Respiratory Rate 21 19 26 H Blood Pressure 149/71 H Pulse Oximetry 97 98 95 12/07/20 16:00 12/07/20 16:30 12/07/20 16:35 Temperature Pulse Rate 76 77 79 Respiratory Rate 23 20 20 Blood Pressure 123/67 Pulse Oximetry 95 96 95 12/07/20 16:47 Temperature Pulse Rate 76 Respiratory Rate 20 Blood Pressure 122/66 Pulse Oximetry 98 MDM - Abdominal Pain Lab Data Result diagrams: 12/07/20 15:04 12/07/20 15:04 Labs: Lab Results 12/07/20 12/07/20 12/07/20 Range/Units 14:56 15:04 15:04 WBC 11.4 H (4.5-11.0) X10^3/uL RBC 3.89 L (4.0-5.2) X10^6/uL Hgb 11.6 L (12.0-16.0) g/dL Hct 34.2 L (36-46) % MCV 88.1 (80-100) fL MCH 29.9 (26-34) PG MCHC 33.9 (30-36) % RDW 15.0 H (11.6-14.8) % Plt Count 270 (150-400) X10^3/uL Neut % (Auto) 72.2 (50-75) % Lymph % (Auto) 18.2 L (25-40) % [place] % (Auto) 9.3 (3-14) % Eos % (Auto) 0.0 L (2-4) % Baso % (Auto) 0.3 (0-2) % Neut # (Auto) 8200 H (9295-8199) /uL Lymph # (Auto) 2100 (7946-2911) /uL [place] # (Auto) 1100 H (0-900) /uL Eos # (Auto) 0 (0-450) /uL Baso # (Auto) 0 (0-100) /uL ESR 31 H (0-20) MM/HR PT (10.1-12.7) SECONDS INR (0.9-1.3) Sodium 127 L (137-145) mmol/L Potassium 3.9 (3.4-5.1) mmol/L Chloride 93 L (98-107) mmol/L Carbon Dioxide 26 (22-32) mmol/L BUN 39 H (7-17) mg/dL Creatinine 1.82 H (0.52-1.04) mg/dL Estimated GFR 27.8 L (>60) mL/min BUN/Creatinine Ratio 21.4 (6-22) Glucose 117 H (80-110) mg/dL Lactate (0.7-2.1) mmol/L Calcium 9.0 (8.4-10.2) mg/dL Magnesium (1.6-2.3) mg/dL Total Bilirubin 1.9 H (0.2-1.3) mg/dL AST 71 H (14-36) IU/L ALT 37 H (<35) IU/L Alkaline Phosphatase 210 H (38-126) U/L Ammonia (9-30) umol/L Total Protein 7.1 (6.3-8.2) g/dL Albumin 3.3 L (3.5-5.0) g/dL Globulin 3.8 (1.7-4.1) g/dL Albumin/Globulin Ratio 0.9 L (1.0-2.8) Lipase (23-300) U/L Fluid Color Fluid Appearance Fluid RBC /uL Fld Tot Nucleated Cell /uL Fluid Polynuclear WBCs % Fluid Mononuclear WBCs % Fluid Eosinophils % Fluid Other Cells % Body Fluid Clot Fluid Glucose mg/dL Fluid Total Protein g/dL Fluid Albumin g/dL Fluid LDH U/L 12/07/20 12/07/20 12/07/20 Range/Units 15:04 15:04 15:04 WBC (4.5-11.0) X10^3/uL RBC (4.0-5.2) X10^6/uL Hgb (12.0-16.0) g/dL Hct (36-46) % MCV (80-100) fL MCH (26-34) PG MCHC (30-36) % RDW (11.6-14.8) % Plt Count (150-400) X10^3/uL Neut % (Auto) (50-75) % Lymph % (Auto) (25-40) % [place] % (Auto) (3-14) % Eos % (Auto) (2-4) % Baso % (Auto) (0-2) % Neut # (Auto) (4565-6976) /uL Lymph # (Auto) (6023-4117) /uL [place] # (Auto) (0-900) /uL Eos # (Auto) (0-450) /uL Baso # (Auto) (0-100) /uL ESR (0-20) MM/HR PT 13.5 H (10.1-12.7) SECONDS INR 1.2 (0.9-1.3) Sodium (137-145) mmol/L Potassium (3.4-5.1) mmol/L Chloride (98-107) mmol/L Carbon Dioxide (22-32) mmol/L BUN (7-17) mg/dL Creatinine (0.52-1.04) mg/dL Estimated GFR (>60) mL/min BUN/Creatinine Ratio (6-22) Glucose (80-110) mg/dL Lactate 2.0 (0.7-2.1) mmol/L Calcium (8.4-10.2) mg/dL Magnesium 2.0 (1.6-2.3) mg/dL Total Bilirubin (0.2-1.3) mg/dL AST (14-36) IU/L ALT (<35) IU/L Alkaline Phosphatase (38-126) U/L Ammonia (9-30) umol/L Total Protein (6.3-8.2) g/dL Albumin (3.5-5.0) g/dL Globulin (1.7-4.1) g/dL Albumin/Globulin Ratio (1.0-2.8) Lipase 144 (23-300) U/L Fluid Color Fluid Appearance Fluid RBC /uL Fld Tot Nucleated Cell /uL Fluid Polynuclear WBCs % Fluid Mononuclear WBCs % Fluid Eosinophils % Fluid Other Cells % Body Fluid Clot Fluid Glucose mg/dL Fluid Total Protein g/dL Fluid Albumin g/dL Fluid LDH U/L 12/07/20 12/07/20 12/07/20 Range/Units 15:04 16:37 16:37 WBC (4.5-11.0) X10^3/uL RBC (4.0-5.2) X10^6/uL Hgb (12.0-16.0) g/dL Hct (36-46) % MCV (80-100) fL MCH (26-34) PG MCHC (30-36) % RDW (11.6-14.8) % Plt Count (150-400) X10^3/uL Neut % (Auto) (50-75) % Lymph % (Auto) (25-40) % [place] % (Auto) (3-14) % Eos % (Auto) (2-4) % Baso % (Auto) (0-2) % Neut # (Auto) (8451-6441) /uL Lymph # (Auto) (8213-4199) /uL [place] # (Auto) (0-900) /uL Eos # (Auto) (0-450) /uL Baso # (Auto) (0-100) /uL ESR (0-20) MM/HR PT (10.1-12.7) SECONDS INR (0.9-1.3) Sodium (137-145) mmol/L Potassium (3.4-5.1) mmol/L Chloride (98-107) mmol/L Carbon Dioxide (22-32) mmol/L BUN (7-17) mg/dL Creatinine (0.52-1.04) mg/dL Estimated GFR (>60) mL/min BUN/Creatinine Ratio (6-22) Glucose (80-110) mg/dL Lactate (0.7-2.1) mmol/L Calcium (8.4-10.2) mg/dL Magnesium (1.6-2.3) mg/dL Total Bilirubin (0.2-1.3) mg/dL AST (14-36) IU/L ALT (<35) IU/L Alkaline Phosphatase (38-126) U/L Ammonia 30 (9-30) umol/L Total Protein (6.3-8.2) g/dL Albumin (3.5-5.0) g/dL Globulin (1.7-4.1) g/dL Albumin/Globulin Ratio (1.0-2.8) Lipase (23-300) U/L Fluid Color Yellow Fluid Appearance Slightly cloudy Fluid RBC 113 /uL Fld Tot Nucleated Cell 68 /uL Fluid Polynuclear WBCs 0 % Fluid Mononuclear WBCs 100 % Fluid Eosinophils 0 % Fluid Other Cells 0 % Body Fluid Clot No clots present Fluid Glucose 104 mg/dL Fluid Total Protein < 2.0 g/dL Fluid Albumin < 1.0 g/dL Fluid LDH 198 U/L Imaging Data US - abdomen: Radiologist's Impression: [place] [id number] [place] [id number] ReportSigned Patient: Gwen Tyson AMR#: [id number]: 4Acct:[id number]/Sex: 65 / FDate of Service: 12/07/20Loc: EDAccession Number: [id number] Procedure: US abdomen limited Ordering Provider: Lebron Tovar D.O. PROCEDURE: US ABDOMEN LIMITED INDICATIONS: ALLEN FOR PARACENTESIS TECHNIQUE: Real-time focused scanning was performed of the abdomen, with image documentation. COMPARISON: [facility], US, US ABDOMEN LIMITED, 11/21/2020, 13:05. [facility], CT, CT ABDOMEN PELVIS W CON, 10/18/2020, 8:33. [facility], US, US PARACE NTESIS, 11/21/2020, 14:07. FINDINGS: Ultrasound skin marking was performed for paracentesis involving the right lower quadrant of the abdomen. The distance from the skin allen to the pocket of fluid is 2 cm. The distance to the center of the pocket is 10.6 cm IMPRESSION: Ultrasound guided skin marking, for performance of a paracentesis. Dictated by: Cecil Simpson M.D. on 12/07/2020 at 15:01 Approved by: Cecil Simpson M.D. on 12/07/2020 at 15:02 [facility] Narrative Medical decision making narrative: Patient with increased swelling and tense ascites complaining only of distension and discomfort. No evidence of SBP. No confusion. Patient shows no signs of sepsis and feels tremendous relief after above-stated procedure. Extensive return precautions given to patient and her . I did discuss with them that it would make sense to ask her doctors about the possibility of setting up scheduled paracentesis as an outpatient so as to help her avoid potentially a needed visits to the emergency department. Questions answered to their apparent satisfaction Discharge Plan Departure Patient Disposition: Home Clinical Impression: Abdominal pain Qualifiers: Abdominal location: generalized Qualified Code(s): R10.84 - Generalized abdo pete pain Abdominal ascites Qualifiers: Ascites type: other type Qualified Code(s): R18.8 - Other ascites Instructions: Abdominal Paracentesis Activity Restrictions/Additional Instructions: *You have been diagnosed with [abdominal pain due to ascites, no signs of infection.] *What to do: * continue to take medications as directed *Follow up with your primary care provider in 2-3 days, call for an appointment. Let them know you were seen in the Emergency Department and that we ask that you be seen in follow up *Return to ER if you should have any new, worsening or concerning symptoms Prescriptions: No Action sertraline 50 mg tablet 50 mg PO BEDTIME RF: 0 melatonin 5 mg Tablet 5 mg PO BEDTIME PRN (Reason: Sleep) RF: 0 folic acid 1 mg tablet 1 mg PO DAILY Qty: 100 RF: 0 multivitamin Tablet 1 tab PO DAILY Qty: 100 RF: 0 Referrals: Bib Toro MD [Primary Care Provider] -
[2020-12-07 15:27] LABS: INR 1.2 (0.9-1.3); Prothrombin Time 13.5 SECONDS (10.1-12.7)
[2020-12-07 15:31] LABS: Alanine Aminotransferase 37 IU/L (<35); Albumin 3.3 g/dL (3.5-5.0); Albumin Globulin Ratio 0.9 (1.0-2.8); Alkaline Phosphatase 210 U/L (38-126); Aspartate Aminotransferase 71 IU/L (14-36); BUN Creatinine Ratio 21.4 (6-22); Bilirubin Total 1.9 mg/dL (0.2-1.3); Blood Urea Nitrogen 39 mg/dL (7-17); Carbon Dioxide 26 mmol/L (22-32); Chloride 93 mmol/L (98-107); Estimated Glomerular Filt Rate 27.8 mL/min (>60); Globulin 3.8 g/dL (1.7-4.1); Glucose 117 mg/dL (80-110); HEMOLYSIS < 15 (0-50); Lipase 144 U/L (23-300); Potassium 3.9 mmol/L (3.4-5.1); Sodium 127 mmol/L (137-145); Total Protein 7.1 g/dL (6.3-8.2)
[2020-12-07 15:38] LABS: Ammonia (NH3) 30 umol/L (9-30)
[2020-12-07 15:49] LABS: Add Manual Diff / Slide Review NO; Basophils Absolute Auto 0 /uL (0-100); Basophils Percent Auto 0.3 % (0-2); Eosinophils Absolute Auto 0 /uL (0-450); Hematocrit 34.2 % (36-46); Hemoglobin 11.6 g/dL (12.0-16.0); Lymphocytes Absolute Auto 2100 /uL (1100-4500); Lymphocytes Percent Auto 18.2 % (25-40); Mean Corpuscular HGB Conc 33.9 % (30-36); Mean Corpuscular Hemoglobin 29.9 PG (26-34); Mean Corpuscular Volume 88.1 fL (80-100); Monocytes Absolute Auto 1100 /uL (0-900); Monocytes Percent Auto 9.3 % (3-14); Neutrophils Absolute Auto 8200 /uL (1500-7000); Neutrophils Percent Auto 72.2 % (50-75); Platelet Count 270 X10^3/uL (150-400); Red Blood Cell Count 3.89 X10^6/uL (4.0-5.2); White Blood Cell Count 11.4 X10^3/uL (4.5-11.0)
[2020-12-07 16:14] LABS: Erythrocyte Sedimentation Rate 31 MM/HR (0-20)
[2020-12-07 17:10] LABS: LDH Body Fluid 198 U/L; Total Protein Body Fluid < 2.0 g/dL
[2020-12-07 17:11] LABS: Albumin Body Fluid < 1.0 g/dL; Glucose Body Fluid 104 mg/dL
[2020-12-07 17:15] LABS: Body Fluid Tot Nucleated Cells 68 /uL
[2020-12-07 17:16] LABS: Body Fluid Red Blood Cells 113 /uL
[2020-12-07 17:20] LABS: Reflexed Lactate in 2 Hours Y
[2020-12-07 18:57] LABS: Body Fluid Appearance SLIGHTLY CLOUDY; Body Fluid Clotted? NO CLOTS PRESENT; Body Fluid Color YELLOW; Eosinophils Body Fluid 0 %; Mononuclear WBC Body Fluid 100 %; Other Cells Body Fluid 0 %; Polynuclear WBC Body Fluid 0 %
== END 2020-12-07 17:45 | disposition home or self-care (01) ==
PROVIDERS: Emergency Provider Emergency Medicine; PCP Family Medicine
DX: R10.84 Generalized abdominal pain (principal); R18.8 Other ascites
CPT/HCPCS: 36415; 76705; 80053; 82042; 82140; 82945; 83605; 83615; 83690; 83735; 84157; 85025; 85610; 85651; 87070; 87075; 87077; 87147; 87186; 87205; 89051; 99284

== ENCOUNTER 2020-12-16 08:05 | Emergency (ER) | payer OTHER, SELFPAY ==
[2020-10-18 12:59] VITALS: BMI 31.5
[2020-12-16] VITALS (13 sets, daily range): BP systolic 97–119; BP diastolic 53–60; PULSE 74–87; RESP 18; TEMP 36.7; O2SAT 87–96; BMI 31.1
--- NOTE | 2020-12-16 08:18 | ED_ITS ---
HPI - General Adult General Chief complaint: Abdominal Pain Stated complaint: Low Mobility Time Seen by Provider: 12/16/20 08:06 History of Present Illness HPI narrative: 65-year-old woman with a history of alcoholic cirrhosis and depression who has been getting progressively worse since September. She was admitted at that time for increasing weakness and ascites. She states that she has had a total of for paracentesis, most of those have been in the emergency department. She has had 2 televideo appointments with a cat dog or other pet groomer, in [place]. She does currently have home health but is getting increasingly weak. She and her both note that since yesterday her legs have been so weak she is unable to stand at all. For the last number of weeks he has been helping her with a bedpan in the evenings because she is unable to get out of bed quickly. Current medications include Lasix and spironolactone as well as sertraline for her depression. She is not on any other medications for her end-stage liver disease. Recent hepatitis screening indicates an absence of hep B and hep C. Related Data Home Medications Medication Instructions Recorded Confirmed melatonin 5 mg PO BEDTIME PRN 10/18/20 10/18/20 sertraline 50 mg PO BEDTIME 10/18/20 10/18/20 Previous Rx's Medication Instructions Recorded folic acid 1 mg PO DAILY #100 tab 09/26/20 multivitamin 1 tab PO DAILY #100 tab 09/26/20 Allergies Allergy/AdvReac Type Severity Reaction Status Date / Time No Known Drug Allergies Allergy Verified 11/21/20 11:59 Review of Systems Review of Systems Narrative: She notes continued increasing weakness, no fevers, no cough, no c hest pain or palpitations. She describes some dyspnea secondary to the pressure from her expanding abdomen. Aside from the distension her abdomen is not tender and she does not describe vomiting, diarrhea or black stools. She does have a small ulceration on the back of her left calf for which she is currently on Septra with cultures reportedly growing MRSA. 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) travel history: other leisure activities: reading and other other: Walking seatbelt use: always working smoke detector in home: Yes fire extinguisher in home: Yes carbon monox detector in home: Yes firearms in home: No do you feel safe at home: Yes Smoking Status: Former smoker alcohol intake: former during the past year weight has: decreased > 10 lbs well-balanced diet: daily or most days daily servings fruits/ve-4 caffeine: Yes (Rare) eating out: 1-3 times/week Type(s) of exercise: walking and bicycling frequency: daily duration: 15-30 minutes/day Smoking Status: Former smoker alcohol intake frequency: 0-2 drinks per day Alcohol type: hard liquor Substance Use Type: does not use Exam Narrative Exam Narrative: General: Frail and generally unhealthy appearing but in no acute distress. HEENT: Moist mucous membranes, reactive pupils, right eye has moderate amount of discharge with some slight scleral erythema Neck: +JVD, supple Respiratory: Lungs are clear to auscultation, no wheezing no rales no rhonchi. Full and symmetrical air movement Cardiac: Regular rate and rhythm no murmurs no bruits Abdomen: Dramatically distended, significant ascites, nontender Skin: Thin, multiple bruises over all parts of her body in various stages of healing Neurologic: Slightly slowed, weak all over but otherwise Grossly neurologically intact with no obvious asymmetries or abnormalities Extremities: 3+ edema on the left 2+ edema on the right. There is a small healing wound on the left anterior mehta, 1 x 3 cm shallow area of ulceration without surrounding erythema or discharge in the posterior aspect of the calf Psych: Cooperative, minimal insight into her overall disease process Initial Vital Signs Initial Vital Signs: Vital Signs Pulse Rate 86 12/16/20 08:40 Respiratory Rate 18 12/16/20 08:40 Blood Pressure 114/55 L 12/16/20 08:40 Pulse Oximetry 96 12/16/20 08:40 Procedures Paracentesis Time Out Performed: Yes Local Anesthetic: lidocaine 1% Amount of anesthesia used (mL): 2 Fluid: clear (yellow) and sent to lab for analysis Post Procedure Exam: awake, alert, normal SpO2 and other (mild hypotension 95/60) Patient Tolerated Procedure: Well Complications: none and other (5 L of fluid removed from the abdomen with minimal change to the overall volume of ascites present. Tolerated well. 50 g of albumin and L of fluid given IV) Course Orders Ordered: ED Orders 12/16/20 08:20 Ammonia (NH3) Stat Complete Blood Count AUTO DIFF Stat Comprehensive Metabolic Panel Stat Lactate (Lactic Acid) Stat Lipase Stat Magnesium Stat Partial Thromboplastin Time Stat Prothrombin Time INR Stat Troponin I Stat 12/16/20 08:44 COVID19 Stat Urinalysis and Microscopic Stat 12/16/20 09:02 Blood Culture Stat 12/16/20 09:45 Body Fluid Culture Stat 12/16/20 09:50 XR chest 1V Stat 12/16/20 12:07 Cell Count w Diff Body Fluid Stat Glucose Body Fluid Stat LDH Body Fluid Stat Total Protein Body Fluid Stat Discontinued Medications Albumin Human (Albuminar) 25 gm in 100 mls @ 60 mls/hr IV NOW ONE Stop: 12/16/20 11:23 Albumin Human (Albuminar) 25 gm in 100 mls @ 120 mls/hr IV NOW ONE Stop: 12/16/20 10:34 Last Infusion: 12/16/20 11:10 Dose: 0 mls/hr Documented by: Admin: 12/16/20 10:17 Dose: 120 mls/hr Documented by: KINGA Ceftriaxone Sodium/Dextrose (Rocephin) 2 gm in 50 mls @ 100 mls/hr IV NOW ONE Stop: 12/16/20 10:16 Last Infusion: 12/16/20 10:40 Dose: 0 mls/hr Documented by: Admin: 12/16/20 10:07 Dose: 100 mls/hr Documented by: KINGA Metronidazole (Flagyl) 500 mg in 100 mls @ 100 mls/hr IV NOW ONE Stop: 12/16/20 10:46 Last Infusion: 12/16/20 12:10 Dose: 0 mls/hr Documented by: Admin: 12/16/20 10:07 Dose: 100 mls/hr Documented by: KINGA Albumin Human (Albuminar) 25 gm in 100 mls @ 120 mls/hr IV NOW ONE Stop: 12/16/20 11:04 Last Infusion: 12/16/20 12:14 Dose: 0 mls/hr Documented by: Admin: 12/16/20 11:24 Dose: 120 mls/hr Documented by: KINGA Vital Signs Vital signs: Vital Signs - 8 hr 12/16/20 08:40 12/16/20 08:45 12/16/20 08:47 Temperature 98.1 F Pulse Rate 86 87 Respiratory Rate 18 Blood Pressure 114/55 L Pulse Oximetry 96 94 12/16/20 09:00 12/16/20 09:28 12/16/20 09:30 Temperature Pulse Rate 87 84 84 Respiratory Rate Blood Pressure 119/60 115/60 Pulse Oximetry 94 87 L 95 12/16/20 10:00 12/16/20 10:30 12/16/20 10:32 Temperature Pulse Rate 87 85 85 Respiratory Rate Blood Pressure 107/59 L Pulse Oximetry 96 96 96 12/16/20 11:00 12/16/20 11:30 12/16/20 12:00 Temperature Pulse Rate 84 86 78 Respiratory Rate Blood Pressure 109/57 L 115/60 98/53 L Pulse Oximetry 96 96 96 12/16/20 12:30 Temperature Pulse Rate 74 Respiratory Rate Blood Pressure 97/56 L Pulse Oximetry 95 Medical Decision Making Medical Records Medical records reviewed: Yes I reviewed the patient's medical records. Lab Data Lab results reviewed: Yes I reviewed the patient's lab results. Result diagrams: 12/16/20 08:20 12/16/20 08:20 Labs: Lab Results 12/16/20 12/16/20 12/16/20 Range/Units 08:20 08:20 08:20 WBC 14.5 H (4.5-11.0) X10^3/uL RBC 3.88 L (4.0-5.2) X10^6/uL Hgb 11.4 L (12.0-16.0) g/dL Hct 34.0 L (36-46) % MCV 87.5 (80-100) fL MCH 29.3 (26-34) PG MCHC 33.5 (30-36) % RDW 15.9 H (11.6-14.8) % Plt Count 311 (150-400) X10^3/uL Neut % (Auto) 70.1 (50-75) % Lymph % (Auto) 22.3 L (25-40) % [place] % (Auto) 6.7 (3-14) % Eos % (Auto) 0.0 L (2-4) % Baso % (Auto) 0.9 (0-2) % Neut # (Auto) 90296 H (9825-7984) /uL Lymph # (Auto) 3200 (7291-5041) /uL [place] # (Auto) 1000 H (0-900) /uL Eos # (Auto) 0 (0-450) /uL Baso # (Auto) 100 (0-100) /uL PT 14.1 H (10.1-12.7) SECONDS INR 1.2 (0.9-1.3) APTT 33 (26.4-36.2) SECONDS Sodium 128 L (137-145) mmol/L Potassium 4.4 (3.4-5.1) mmol/L Chloride 94 L (98-107) mmol/L Carbon Dioxide 24 (22-32) mmol/L BUN 50 H (7-17) mg/dL Creatinine 2.11 H (0.52-1.04) mg/dL Estimated GFR 23.4 L (>60) mL/min BUN/Creatinine Ratio 23.7 H (6-22) Glucose 97 (80-110) mg/dL Lactate (0.7-2.1) mmol/L Calcium 9.1 (8.4-10.2) mg/dL Magnesium 2.1 (1.6-2.3) mg/dL Total Bilirubin 2.6 H (0.2-1.3) mg/dL AST 113 H (14-36) IU/L ALT 39 H (<35) IU/L Alkaline Phosphatase 153 H (38-126) U/L Ammonia (9-30) umol/L Troponin I 0.014 (0.01-0.034) ng/mL Total Protein 7.2 (6.3-8.2) g/dL Albumin 3.4 L (3.5-5.0) g/dL Globulin 3.8 (1.7-4.1) g/dL Albumin/Globulin Ratio 0.9 L (1.0-2.8) Lipase 67 D (23-300) U/L Urine Color Urine Appearance Urine pH (4.5-8.0) Ur Specific [place] (1.000-1.035) Urine Protein (Negative) Urine Glucose (UA) (Negative) g/dL Urine Ketones (NEGATIVE) Urine Occult Blood (Negative) Urine Nitrate (Negative) Urine Bilirubin (NEGATIVE) Urine Urobilinogen (0.2) E.U./dL Ur Leukocyte Esterase (NEGATIVE) Urine RBC (0-5/HPF) Urine WBC (0-5/HPF) Ur Squamous Epith Cells (0-5/HPF) Urine Bacteria (None) Ur Culture Indicated? Fluid Color Fluid Appearance Fluid RBC /uL Fld Tot Nucleated Cell /uL Fluid Polynuclear WBCs % Fluid Mononuclear WBCs % Fluid Eosinophils % Fluid Other Cells % Body Fluid Clot Fluid Glucose mg/dL Fluid Total Protein g/dL Fluid LDH U/L SARS-CoV-2 (PCR) (Negative) 12/16/20 12/16/20 12/16/20 Range/Units 08:20 08:20 08:44 WBC (4.5-11.0) X10^3/uL RBC (4.0-5.2) X10^6/uL Hgb (12.0-16.0) g/dL Hct (36-46) % MCV (80-100) fL MCH (26-34) PG MCHC (30-36) % RDW (11.6-14.8) % Plt Count (150-400) X10^3/uL Neut % (Auto) (50-75) % Lymph % (Auto) (25-40) % [place] % (Auto) (3-14) % Eos % (Auto) (2-4) % Baso % (Auto) (0-2) % Neut # (Auto) (5984-3595) /uL Lymph # (Auto) (1909-0234) /uL [place] # (Auto) (0-900) /uL Eos # (Auto) (0-450) /uL Baso # (Auto) (0-100) /uL PT (10.1-12.7) SECONDS INR (0.9-1.3) APTT (26.4-36.2) SECONDS Sodium (137-145) mmol/L Potassium (3.4-5.1) mmol/L Chloride (98-107) mmol/L Carbon Dioxide (22-32) mmol/L BUN (7-17) mg/dL Creatinine (0.52-1.04) mg/dL Estimated GFR (>60) mL/min BUN/Creatinine Ratio (6-22) Glucose (80-110) mg/dL Lactate 3.4 H (0.7-2.1) mmol/L Calcium (8.4-10.2) mg/dL Magnesium (1.6-2.3) mg/dL Total Bilirubin (0.2-1.3) mg/dL AST (14-36) IU/L ALT (<35) IU/L Alkaline Phosphatase (38-126) U/L Ammonia 56 H (9-30) umol/L Troponin I (0.01-0.034) ng/mL Total Protein (6.3-8.2) g/dL Albumin (3.5-5.0) g/dL Globulin (1.7-4.1) g/dL Albumin/Globulin Ratio (1.0-2.8) Lipase (23-300) U/L Urine Color Urine Appearance Urine pH (4.5-8.0) Ur Specific [place] (1.000-1.035) Urine Protein (Negative) Urine Glucose (UA) (Negative) g/dL Urine Ketones (NEGATIVE) Urine Occult Blood (Negative) Urine Nitrate (Negative) Urine Bilirubin (NEGATIVE) Urine Urobilinogen (0.2) E.U./dL Ur Leukocyte Esterase (NEGATIVE) Urine RBC (0-5/HPF) Urine WBC (0-5/HPF) Ur Squamous Epith Cells (0-5/HPF) Urine Bacteria (None) Ur Culture Indicated? Fluid Color Fluid Appearance Fluid RBC /uL Fld Tot Nucleated Cell /uL Fluid Polynuclear WBCs % Fluid Mononuclear WBCs % Fluid Eosinophils % Fluid Other Cells % Body Fluid Clot Fluid Glucose mg/dL Fluid Total Protein g/dL Fluid LDH U/L SARS-CoV-2 (PCR) Negative (Negative) 12/16/20 12/16/20 12/16/20 Range/Units 08:44 11:27 12:07 WBC (4.5-11.0) X10^3/uL RBC (4.0-5.2) X10^6/uL Hgb (12.0-16.0) g/dL Hct (36-46) % MCV (80-100) fL MCH (26-34) PG MCHC (30-36) % RDW (11.6-14.8) % Plt Count (150-400) X10^3/uL Neut % (Auto) (50-75) % Lymph % (Auto) (25-40) % [place] % (Auto) (3-14) % Eos % (Auto) (2-4) % Baso % (Auto) (0-2) % Neut # (Auto) (3034-9130) /uL Lymph # (Auto) (0380-2227) /uL [place] # (Auto) (0-900) /uL Eos # (Auto) (0-450) /uL Baso # (Auto) (0-100) /uL PT (10.1-12.7) SECONDS INR (0.9-1.3) APTT (26.4-36.2) SECONDS Sodium (137-145) mmol/L Potassium (3.4-5.1) mmol/L Chloride (98-107) mmol/L Carbon Dioxide (22-32) mmol/L BUN (7-17) mg/dL Creatinine (0.52-1.04) mg/dL Estimated GFR (>60) mL/min BUN/Creatinine Ratio (6-22) Glucose (80-110) mg/dL Lactate 1.7 (0.7-2.1) mmol/L Calcium (8.4-10.2) mg/dL Magnesium (1.6-2.3) mg/dL Total Bilirubin (0.2-1.3) mg/dL AST (14-36) IU/L ALT (<35) IU/L Alkaline Phosphatase (38-126) U/L Ammonia (9-30) umol/L Troponin I (0.01-0.034) ng/mL Total Protein (6.3-8.2) g/dL Albumin (3.5-5.0) g/dL Globulin (1.7-4.1) g/dL Albumin/Globulin Ratio (1.0-2.8) Lipase (23-300) U/L Urine Color Yellow Urine Appearance Clear Urine pH 5.0 (4.5-8.0) Ur Specific [place] 1.015 (1.000-1.035) Urine Protein Negative (Negative) Urine Glucose (UA) Negative (Negative) g/dL Urine Ketones Negative (NEGATIVE) Urine Occult Blood Negative (Negative) Urine Nitrate Negative (Negative) Urine Bilirubin Negative (NEGATIVE) Urine Urobilinogen 0.2 (0.2) E.U./dL Ur Leukocyte Esterase Negative (NEGATIVE) Urine RBC None seen (0-5/HPF) Urine WBC None seen (0-5/HPF) Ur Squamous Epith Cells 5-10 /hpf H (0-5/HPF) Urine Bacteria None seen (None) Ur Culture Indicated? Cult not indicated Fluid Color Yellow Fluid Appearance Slightly cloudy Fluid RBC 24 /uL Fld Tot Nucleated Cell 72 /uL Fluid Polynuclear WBCs 5 % Fluid Mononuclear WBCs 90 % Fluid Eosinophils 0 % Fluid Other Cells 5 % Body Fluid Clot No clots present Fluid Glucose 90 mg/dL Fluid Total Protein < 2.0 g/dL Fluid LDH 202 U/L SARS-CoV-2 (PCR) (Negative) MDM Narrative Medical decision making narrative: 65-year-old woman with alcoholic hepatitis and ascites worsening since September now with worsening renal function and global weakness. Will be transferred to [facility] for further evaluation. Ascites fluid has been sent for culture and chemistries. She has been given ceftriaxone and metronidazole with presumption of infection the source I have not yet identified. She does not appear to have a pneumonia, cellulitis or bladder infection. No evidence of acute meningitis. Case is reviewed with [facility], hospitalist Dr. Anand Shaw, has accepted the patient. Large volume paracentesis completed with albumin given. Because of the elevated white count in decreasing blood pressure L of fluid was given IV with the albumin. Peritoneal fluid does not look infected to suggest spontaneous bacterial peritonitis as an explanation for her moderately elevated white blood cell count. In summary 65-year-old woman with progressive hepatic failure increasing ascites and worsening renal function. Will need further observation, antibiotics, consideration of additional paracenteses and GI as well as renal consultation. She is transfer to [facility] in stable condition Discharge Plan Departure Patient Disposition: [facility] Clinical Impression: Weakness, Hyponatremia, Encephalopathy Abdominal ascites Qualifiers: Ascites type: due to alcoholic cirrhosis Qualified Code(s): K70.31 - Alcoholic cirrhosis of liver with ascites Acute renal failure Qualifiers: Acute renal failure type: unspecified Qualified Code(s): N17.9 - Acute kidney failure, unspecified Prescriptions: No Action sertraline 50 mg tablet 50 mg PO BEDTIME RF: 0 melatonin 5 mg Tablet 5 mg PO BEDTIME PRN (Reason: Sleep) RF: 0 folic acid 1 mg tablet 1 mg PO DAILY Qty: 100 RF: 0 multivitamin Tablet 1 tab PO DAILY Qty: 100 RF: 0 Referrals: Bib Toro MD [Primary Care Provider] -
[2020-12-16 08:34] LABS: Add Manual Diff / Slide Review NO; Basophils Absolute Auto 100 /uL (0-100); Basophils Percent Auto 0.9 % (0-2); Eosinophils Absolute Auto 0 /uL (0-450); Hemoglobin 11.4 g/dL (12.0-16.0); Lymphocytes Absolute Auto 3200 /uL (1100-4500); Lymphocytes Percent Auto 22.3 % (25-40); Mean Corpuscular HGB Conc 33.5 % (30-36); Mean Corpuscular Hemoglobin 29.3 PG (26-34); Mean Corpuscular Volume 87.5 fL (80-100); Monocytes Absolute Auto 1000 /uL (0-900); Monocytes Percent Auto 6.7 % (3-14); Neutrophils Absolute Auto 10200 /uL (1500-7000); Neutrophils Percent Auto 70.1 % (50-75); Red Blood Cell Count 3.88 X10^6/uL (4.0-5.2); Red Cell Distribution Width 15.9 % (11.6-14.8); White Blood Cell Count 14.5 X10^3/uL (4.5-11.0)
[2020-12-16 08:39] LABS: INR 1.2 (0.9-1.3); Prothrombin Time 14.1 SECONDS (10.1-12.7)
[2020-12-16 08:42] LABS: PTT Partial Thromboplastin Tim 33 SECONDS (26.4-36.2)
[2020-12-16 08:44] LABS: Ammonia (NH3) 56 umol/L (9-30)
[2020-12-16 08:45] LABS: Alanine Aminotransferase 39 IU/L (<35); Albumin 3.4 g/dL (3.5-5.0); Albumin Globulin Ratio 0.9 (1.0-2.8); Alkaline Phosphatase 153 U/L (38-126); Aspartate Aminotransferase 113 IU/L (14-36); BUN Creatinine Ratio 23.7 (6-22); Bilirubin Total 2.6 mg/dL (0.2-1.3); Blood Urea Nitrogen 50 mg/dL (7-17); Calcium 9.1 mg/dL (8.4-10.2); Carbon Dioxide 24 mmol/L (22-32); Chloride 94 mmol/L (98-107); Estimated Glomerular Filt Rate 23.4 mL/min (>60); Globulin 3.8 g/dL (1.7-4.1); Glucose 97 mg/dL (80-110); Lactate (Lactic Acid) 3.4 mmol/L (0.7-2.1); Lipase 67 U/L (23-300); Magnesium 2.1 mg/dL (1.6-2.3); Potassium 4.4 mmol/L (3.4-5.1); Sodium 128 mmol/L (137-145); Total Protein 7.2 g/dL (6.3-8.2)
[2020-12-16 08:46] LABS: HEMOLYSIS 153 (0-50)
[2020-12-16 08:56] LABS: Troponin I 0.014 ng/mL (0.01-0.034)
[2020-12-16 09:04] LABS: Bacteria Urine None Seen; RBC Urine None Seen (0-5/HPF); WBC Urine None Seen (0-5/HPF)
[2020-12-16 09:05] LABS: Appearance Urine UA CLEAR; Bilirubin Urine UA NEGATIVE (NEGATIVE); Color Urine UA YELLOW; Glucose Urine UA NEGATIVE (Negative); Ketones Urine UA NEGATIVE (NEGATIVE); Leukocyte Esterase Urine UA NEGATIVE (NEGATIVE); Nitrite Urine UA NEGATIVE (Negative); Occult Blood Urine UA NEGATIVE (Negative); Protein Urine UA NEGATIVE (Negative); Specific Gravity Urine UA 1.015 (1.000-1.035); Urobilinogen Urine UA 0.2 E.U./dL (0.2)
[2020-12-16 09:10] LABS: Platelet Count 311 X10^3/uL (150-400)
[2020-12-16 09:13] LABS: Culture Indicated Urine Cult Not Indicated; Squamous Epithelial Cell Urine 5-10 /HPF (0-5/HPF)
[2020-12-16 09:19] LABS: COVID19 -Nasal RAPID Negative (Negative)
--- NOTE | 2020-12-16 09:50 | DI.RAD.S_ITS ---
PROCEDURE: XR CHEST 1V INDICATIONS: weakness, elevated lactic acid TECHNIQUE: One view of the chest was acquired. COMPARISON: [facility], CR, XR CHEST 1V, 09/25/2020, 22:12. FINDINGS: Surgical changes and devices: None. Lungs and pleura: Lungs are clear. No pleural effusions or pneumothorax. Mediastinum: Mediastinal contours is not significantly changed accounting for differences in positioning. Heart size is within normal limits. Bones and chest wall: No suspicious bony lesions. Overlying soft tissues appear unremarkable. Right humerus ORIF partially visualized is stable in appearance. IMPRESSION: No acute cardiopulmonary abnormality. Dictated by: Sang Cuba M.D. on 12/16/2020 at 10:15 Approved by: Sang Cuba M.D. on 12/16/2020 at 10:17
[2020-12-16] MEDS: metroNIDAZOLE 500 MG/100 ML PIGGYBACK 100 MG IV (10:07)
[2020-12-16] MEDS: CEFTRIAXONE 2 GM/50 ML FROZ.PIGGY IV (10:07)
[2020-12-16] MEDS: ALBUMIN HUMAN 25 GM/100 ML VIAL IV ×2 (10:17→11:24)
[2020-12-16 10:28] LABS: Reflexed Lactate in 2 Hours Y
[2020-12-16 11:49] LABS: Lactate 2HR (Lactic Acid Rflx) 1.7 mmol/L (0.7-2.1)
[2020-12-16 12:27] LABS: Glucose Body Fluid 90 mg/dL; LDH Body Fluid 202 U/L; Total Protein Body Fluid < 2.0 g/dL
[2020-12-16 12:58] LABS: Body Fluid Appearance SLIGHTLY CLOUDY; Body Fluid Clotted? NO CLOTS PRESENT; Body Fluid Color YELLOW; Body Fluid Tot Nucleated Cells 72 /uL
[2020-12-16 12:59] LABS: Body Fluid Red Blood Cells 24 /uL; Eosinophils Body Fluid 0 %; Mononuclear WBC Body Fluid 90 %; Other Cells Body Fluid 5 %; Polynuclear WBC Body Fluid 5 %
== END 2020-12-16 13:36 | disposition short-term general hospital (02) ==
PROVIDERS: Emergency Provider Emergency Medicine; PCP Family Medicine
DX: G93.40 Encephalopathy, unspecified (principal); K70.31 Alcoholic cirrhosis of liver with ascites; N17.9 Acute kidney failure, unspecified; E87.1 Hypo-osmolality and hyponatremia; R53.1 Weakness; R06.00 Dyspnea, unspecified; Z20.822 Contact with and (suspected) exposure to COVID-19
CPT/HCPCS: 36415; 71045; 80053; 81001; 82140; 82945; 83605; 83615; 83690; 83735; 84157; 84484; 85025; 85610; 85730; 87040; 87070; 87075; 87205; 87635; 89051; 96365; 96366; 96367; 96368; 99281; 99284; C9803; J0696; P9041